=== PATIENT | male | born 1935 | race Caucasian/White ===

== ENCOUNTER 2016-09-21 14:52 | Inpatient (IN) | payer MEDICARE ==
[2016-09-21] VITALS (7 sets, daily range): BP systolic 88–159; BP diastolic 57–90; PULSE 68–103; RESP 16–20; TEMP 97.8; O2SAT 96–100
[~2016-09-21] VITALS: Ht 185.4 cm; Wt 87.4 kg
[~2016-09-21 14:52] MED LIST: CITA20TA4 PO; LORTA5 PO; MIDO5 PO; TAMS0.4C67 PO; URIB118C
[2016-09-21] MEDS ORDERED: CITA20TA4 PO (16:38)
[2016-09-21] MEDS ORDERED: NORC5TAB PO (16:38)
[2016-09-21] MEDS ORDERED: PRESCAP5 PO (16:38)
[2016-09-21] MEDS ORDERED: [UNRECOGNIZED DRUG - CODE] (16:38)
[2016-09-21] MEDS ORDERED: FLUT50SP EACH NARE (16:38)
[2016-09-21] MEDS ORDERED: TAMS0.4C4 PO (16:38)
[2016-09-21] MEDS ORDERED: OXYC1TAB63 PO (16:38)
[2016-09-21] MEDS ORDERED: CETI10 PO (16:38)
[2016-09-21] MEDS ORDERED: MIDO10TA PO (16:38)
[2016-09-21] MEDS ORDERED: SODIUM CHLORIDE 0.9% FLUSH 5 ML FLUSH IVF PRN ×2 (17:00→23:30)
[2016-09-21 17:18] LABS: BASOPHIL % 0.5 % (0.0-2.0); EOSINOPHIL # 0.3 TH/MM3 (0-0.4); EOSINOPHIL % 4.4 % (0.0-4.0); HEMATOCRIT 42.7 % (39.0-51.0); HEMO FLAGS DIFF FINAL; LYMPH % 23.8 % (9.0-44.0); LYMPHOCYTE # 1.5 TH/MM3 (1.0-4.8); MEAN CELL VOLUME 94.3 FL (80.0-100.0); MEAN CORPUSCULAR HEMOGLOBIN 31.7 PG (27.0-34.0); MEAN CORPUSCULAR HGB CONC 33.6 % (32.0-36.0); MONO % 10.1 % (0.0-8.0); NEUT % 61.2 % (16.0-70.0); PLATELET COUNT 156 TH/MM3 (150-450); RED BLOOD COUNT 4.53 MIL/MM3 (4.50-5.90); RED CELL DISTRIBUTION WIDTH 13.4 % (11.6-17.2); WHITE BLOOD COUNT 6.5 TH/MM3 (4.0-11.0)
--- NOTE | 2016-09-21 17:23 | PD ---
HPI Chief Complaint: Neuro Symptoms/ Deficits Time Seen by Provider: 17:07 Travel History International Travel<30 days: No Contact w/Intl Traveler<30days: No Traveled to known affect area: No History of Present Illness HPI Patient is a 81-year-old male with history of postural orthostatic hypotension who presents the emergency department with complaint of recurrent episodes of lightheadedness, syncope, and slight confusion. Daughter states that patient was started on droxidopa for orthostatic hypotension 6 weeks ago and had been doing very well. He still has episodes of hypotension but is not symptomatic with it. Patient ran out of the medication for 48 hours approximately 5 days ago, during which time he had a presyncopal episode upon standing and fell. Unsure whether he hit his head. Since, he has had the drug reinstated but is still having episodes of brief syncope upon standing or sitting, lying down position. This is not atypical for patient. The daughter however is concerned because he seems occasionally confused. She found him standing in his walk-in closet stating that his pants were wet and he needs to have them changed. They will however were not. Given this, primary care provider recommended patient evaluated in the ER. PFSH Past Medical History Cancer: Yes (bladder cancer) Cardiovascular Problems: No Diminished Hearing: No Genitourinary: Yes (bladder ca) Kidney Stones: Yes Musculoskeletal: No Neurologic: No Respiratory: No Tetanus Vaccination: Unknown Influenza Vaccination: Yes ?: Not Past Surgical History Other Surgery: Yes (bladder surgery) Social History Alcohol Use: No Tobacco Use: No Substance Use: No Allergies-Medications (Allergen,Severity, Reaction): Coded Allergies: No Known Allergies (Unverified , 09/21/16) Reported Meds & Prescriptions Reported Meds & Active Scripts Active Reported Northera (Droxidopa) 100 Mg Cap Fluticasone Nasal [place] 50 Mcg/Act Naspr 50 Mcg EACH NARE BID 50 mcg/spray Cetirizine (Cetirizine HCl) 10 Mg Tab 10 Mg PO DAILY Tamsulosin (Tamsulosin HCl) 0.4 Mg Cap 0.4 Mg PO HS Midodrine 10 Mg Tab 10 Mg PO TID Citalopram (Citalopram Hydrobromide) 20 Mg Tab 20 Mg PO DAILY Oxycodone-Acetaminophen 5-325 mg Tab 1 Tab PO Q6H PRN [place] (Hydrocodone-Acetaminophen) 5-325 mg Tab 1 Tab PO Q6H PRN Preservision Areds 2 (Multiple Vitamins W/ Minerals) 1 Cap 1 Cap PO DAILY Review of Systems Except as stated in HPI: all other systems reviewed are Neg Physical Exam Narrative GENERAL: Well-appearing male in no acute distress SKIN: Warm and dry. HEAD: Atraumatic. Normocephalic. EYES: Pupils equal and round. No scleral icterus. No injection or drainage. ENT: No nasal bleeding or discharge. Mucous membranes pink and moist. NECK: Supple CARDIOVASCULAR: Regular rate and rhythm. No murmur appreciated. Initially hypotensive but normalized upon recheck RESPIRATORY: No accessory muscle use. Clear to auscultation. Breath sounds equal bilaterally. GASTROINTESTINAL: Abdomen soft, non-tender, nondistended. MUSCULOSKELETAL: No obvious deformities.No edema. NEUROLOGICAL: Awake and alert. No obvious cranial nerve deficits. Motor grossly within normal limits. Normal speech. PSYCHIATRIC: Appropriate mood and affect; insight and judgment normal. Data Data Last Documented VS Vital Signs Date Time Temp Pulse Resp B/P Pulse Ox O2 Delivery O2 Flow Rate FiO2 09/21/16 17:02 96 Room Air 09/21/16 16:31 80 16 09/21/16 16:30 155/90 09/21/16 14:54 97.8 Orders Electrocardiogram (09/21/16 16:51) Basic Metabolic Panel (Bmp) (09/21/16 16:51) Complete Blood Count With Diff (09/21/16 16:51) Urinalysis - C+S If Indicated (09/21/16 16:51) Ct Brain W/O Iv Contrast(Rout) (09/21/16 16:51) Ecg Monitoring (09/21/16 16:51) Iv Access Insert/Monitor (09/21/16 16:51) Oximetry (09/21/16 16:51) Sodium Chloride 0.9% Flush (Ns Flush) (09/21/16 17:00) Labs Laboratory Tests Test 09/21/16 16:55 White Blood Count 6.5 TH/MM3 Red Blood Count 4.53 MIL/MM3 Hemoglobin 14.4 GM/DL Hematocrit 42.7 % Mean Corpuscular Volume 94.3 FL Mean Corpuscular Hemoglobin 31.7 PG Mean Corpuscular Hemoglobin 33.6 % Concent Red Cell Distribution Width 13.4 % Platelet Count 156 TH/MM3 Mean Platelet Volume 7.7 FL Neutrophils (%) (Auto) 61.2 % Lymphocytes (%) (Auto) 23.8 % Monocytes (%) (Auto) 10.1 % Eosinophils (%) (Auto) 4.4 % Basophils (%) (Auto) 0.5 % Neutrophils # (Auto) 4.0 TH/MM3 Lymphocytes # (Auto) 1.5 TH/MM3 Monocytes # (Auto) 0.7 TH/MM3 Eosinophils # (Auto) 0.3 TH/MM3 Basophils # (Auto) 0.0 TH/MM3 CBC Comment DIFF FINAL Differential Comment MDM Medical Decision Making Medical Screen Exam Complete: Yes Emergency Medical Condition: Yes Medical Record Reviewed: Yes Differential Diagnosis 81-year-old male with history of orthostatic hypotension and recurrent syncope here with complaint of increasing syncopal episodes since being off of his medication for 48 hour interval and confusion after a fall. Differential includes orthostatic hypotension, syncope, arrhythmia, anemia, closed head injury, skull fracture, ICH, UTI. Narrative Course Patient placed on monitor, IV established and blood obtained. Twelve-lead EKG, CBC, BMP, urinalysis and CT of the brain were ordered and are pending at the time this dictation. Patient signed out to oncoming provider waiting results of same for hopeful disposition to home if negative. Mary Jane Olsen MD Sep 21, 2016 17:23
[2016-09-21 17:37] LABS: BACTERIA, URINE FEW /hpf; BLOOD, URINE TRACE (NEG); COMMENT (UR) CATH-CULTURE IND; CULTURE IF INDICATED CATH CULTURE IND; GLUCOSE,URINE NEG (NEG); HYALINE CAST, URINE 15 /lpf (RARE); KETONE, URINE NEG (NEG); MUCUS URINE FEW /lpf (OCC); NITRITE,URINE NEG (NEG); PH, URINE 5.5 (5.0-8.5); SQUAMOUS EPITHELIAL CELL URINE <1 /hpf (0-5); URINE COLOR YELLOW (YELLW/STRAW)
--- NOTE | 2016-09-21 17:51 | RADRPT ---
EXAM DATE/TIME: 09/21/2016 17:36 [facility] COMPARISON: CT BRAIN W/O CONTRAST, April 10, 2016, 14:34. INDICATIONS : Altered mental status today, dizziness. RADIATION DOSE: 45.47 CTDIvol (mGy) MEDICAL HISTORY : Carcinoma, bladder. SURGICAL HISTORY : None. ENCOUNTER: Initial ACUITY: 1 day PAIN SCALE: 0/10 LOCATION: Bilateral head TECHNIQUE: Multiple contiguous axial images were obtained of the head. Using automated exposure control and adj ustment of the mA and/or kV according to patient size, radiation dose was kept as low as reasonably a chievable to obtain optimal diagnostic quality images. FINDINGS: There is linear hypodensity in the left thalamus which may reflect a small area of lacunar type infar ct age uncertain. No cortical infarct is seen. No extra-axial fluid collections are identified. Ventr icles are normal in size. Posterior fossa structures are unremarkable. CONCLUSION: 1. Possible lacunar infarct left thalamus age uncertain. MRI is recommended for further evaluation if clinically indicated. Truman Lopes MD on September 21, 2016 at 17:47 Board Certified Radiologist. This report was verified electronically.
[2016-09-21 17:53] LABS: BICARBONATE 32.2 MEQ/L (21.0-32.0); POTASSIUM 4.8 MEQ/L (3.5-5.1)
[2016-09-21] MEDS ORDERED: SODIUM CHLOR 0.9% 1000 ML INJ 1,000 ML IV ONE (18:15)
[2016-09-21] MEDS ORDERED: cefTRIAXone INJ 1,000 MG in SODIUM CHLORIDE 0.9% INJ 100 ML IV ONE (18:15)
--- NOTE | 2016-09-21 18:16 | PD ---
Physical Exam Narrative The patient was initially evaluated by the previous provider and signed out to me at 5:00 PM pending labs, CT head, and disposition. See her note for further details. Data Data Last Documented VS Vital Signs Date Time Temp Pulse Resp B/P Pulse Ox O2 Delivery O2 Flow Rate FiO2 09/21/16 17:02 96 Room Air 09/21/16 16:31 80 16 09/21/16 16:30 155/90 09/21/16 14:54 97.8 Orders Electrocardiogram (09/21/16 16:51) Basic Metabolic Panel (Bmp) (09/21/16 16:51) Complete Blood Count With Diff (09/21/16 16:51) Urinalysis - C+S If Indicated (09/21/16 16:51) Ct Brain W/O Iv Contrast(Rout) (09/21/16 16:51) Ecg Monitoring (09/21/16 16:51) Iv Access Insert/Monitor (09/21/16 16:51) Oximetry (09/21/16 16:51) Sodium Chloride 0.9% Flush (Ns Flush) (09/21/16 17:00) Urine Culture (09/21/16 16:55) Ceftriaxone Inj (Rocephin Inj) (09/21/16 18:15) Sodium Chlor 0.9% 1000 Ml Inj (Ns 1000 M (09/21/16 18:15) Admit Order (Ed Use Only) (09/21/16 18:20) Labs Laboratory Tests Test 09/21/16 16:55 White Blood Count 6.5 TH/MM3 Red Blood Count 4.53 MIL/MM3 Hemoglobin 14.4 GM/DL Hematocrit 42.7 % Mean Corpuscular Volume 94.3 FL Mean Corpuscular Hemoglobin 31.7 PG Mean Corpuscular Hemoglobin 33.6 % Concent Red Cell Distribution Width 13.4 % Platelet Count 156 TH/MM3 Mean Platelet Volume 7.7 FL Neutrophils (%) (Auto) 61.2 % Lymphocytes (%) (Auto) 23.8 % Monocytes (%) (Auto) 10.1 % Eosinophils (%) (Auto) 4.4 % Basophils (%) (Auto) 0.5 % Neutrophils # (Auto) 4.0 TH/MM3 Lymphocytes # (Auto) 1.5 TH/MM3 Monocytes # (Auto) 0.7 TH/MM3 Eosinophils # (Auto) 0.3 TH/MM3 Basophils # (Auto) 0.0 TH/MM3 CBC Comment DIFF FINAL Differential Comment Urine Color YELLOW Urine Turbidity HAZY Urine pH 5.5 Urine Specific [place] 1.024 Urine Protein 100 mg/dL Urine Glucose (UA) NEG mg/dL Urine Ketones NEG mg/dL Urine Occult Blood TRACE Urine Nitrite NEG Urine Bilirubin NEG Urine Urobilinogen 2.0 MG/DL Urine Leukocyte Esterase LARGE Urine RBC 20 /hpf Urine WBC /hpf Urine WBC Clumps FEW Urine Squamous Epithelial <1 /hpf Cells Urine Bacteria FEW /hpf Urine Hyaline Casts 15 /lpf Urine Mucus FEW /lpf Microscopic Urinalysis Comment CATH-CULTURE IND Sodium Level 139 MEQ/L Potassium Level 4.8 MEQ/L Chloride Level 101 MEQ/L Carbon Dioxide Level 32.2 MEQ/L Anion Gap 6 MEQ/L Blood Urea Nitrogen 29 MG/DL Creatinine 1.48 MG/DL Estimat Glomerular Filtration 46 ML/MIN Rate Random Glucose 104 MG/DL Calcium Level 8.9 MG/DL Total Creatine Kinase 87 U/L Troponin I LESS THAN 0.02 NG/ML MDM Supervised Visit with EMERALD: No Narrative Course Briefly this is an 81-year-old male with history of POTS, bladder cancer, prostate cancer, lives alone, here with his daughter who is concerned about him because he has not been acting like himself and has been falling. On exam the patient is awake and alert. There are no focal neurologic findings. Initial vital signs showed a blood pressure of 88/57 which improved to 155/90 without any intervention. Heart rate of 90, pulse ox 96% on room air, temp of 97.8F. CBC is unremarkable. BMP is remarkable for BUN 29, creatinine 1.48, GFR 46, otherwise unremarkable. UA is suggestive of UTI. The patient was started on Rocephin. CT head: Possible lacunar infarct left thalmus age uncertain. Brain MRI is recommended for further evaluation if clinically indicated. Patient and the patient's daughter were made aware of all findings. Given change in mental status, frequent falls, UTI, and acute kidney injury, the patient will be admitted for further treatment and evaluation. Case discussed with hospitalist Dr. Nj who will admit the patient to his service. Diagnosis Primary Impression: UTI (urinary tract infection) Qualified Code: N39.0 - Urinary tract infection with hematuria, site unspecified Additional Impressions: Frequent falls Acute kidney injury Admitting Information Admitting Physician Requests: Admit Sai Lunsford MD Sep 21, 2016 18:16
[2016-09-21] MEDS ORDERED: BISACODYL 10 MG SUPP PR PRN (18:45)
[2016-09-21] MEDS ORDERED: ONDANSETRON HCL 4 MG/2 ML VIAL IVP PRN (18:45)
[2016-09-21] MEDS ORDERED: ACETAMINOPHEN 325 MG TAB PO PRN (18:45)
[2016-09-21] MEDS ORDERED: SODIUM CHLORIDE 0.9% FLUSH 5 ML FLUSH FLUSH PRN (18:45)
[2016-09-21] MEDS ORDERED: METOCLOPRAMIDE HCL 10 MG/2 ML VIAL IV PUSH PRN (18:45)
[2016-09-21] MEDS ORDERED: oxyCODONE/ACETAMINOPHEN 5 MG/325 MG TAB PO PRN (18:45)
[2016-09-21] MEDS ORDERED: NALOXONE HCL 0.4 MG/ML AMP IV PRN (18:45)
[2016-09-21 19:29] LABS: CREATINE KINASE 87 U/L (39-308)
[2016-09-21] MEDS: DOCUSATE SODIUM 100 MG CAP PO SCH (19:51)
[2016-09-21] MEDS: HEPARIN SODIUM - SQ 10,000 UNITS/ML VIAL SQ SCH (19:51)
[2016-09-21] MEDS: SODIUM CHLOR 0.9% 1000 ML INJ 1,000 ML IV SCH (19:52)
--- NOTE | 2016-09-21 20:01 | RADRPT ---
EXAM DATE/TIME: 09/21/2016 19:19 [facility] COMPARISON: No previous studies available for comparison. INDICATIONS : Stroke. MEDICAL HISTORY : Carcinoma, prostate. Carcinoma, bladder. Hypotension. SURGICAL HISTORY : Left ankle surgery about 40 years ago. ENCOUNTER: Initial ACUITY: 2 day PAIN SCORE: 1/10 LOCATION: Bilateral cranial Please note a normal MRA of the brain does not entirely exclude the possibility of a small aneurysm, nor the possibility of distal intracranial vessel disease. TECHNIQUE: 3D time of flight MRA was performed. Source images, multiplanar STS MIP, and 3D volume MIP reconstru ctions were reviewed. FINDINGS: There is excellent visualization of the major intracranial arteries out to the second-order branch ve ssels. There is no evidence for aneurysm, vessel truncation or stenosis, and no evidence for vascula r malformation. CONCLUSION: Intracranial arteries are within normal limits. Yordy Tobar MD on September 21, 2016 at 19:59 Board Certified Radiologist. This report was verified electronically.
[2016-09-21] MEDS: FLUTICASONE PROPIONATE 50 MCG/ACT 16 GM NASAL SPRAY EACH NARE SCH (21:00)
[2016-09-21] MEDS: TAMSULOSIN HCL 0.4 MG CAP PO SCH (21:00)
[2016-09-21] MEDS ORDERED: SODIUM CHLORIDE 0.9% FLUSH 5 ML FLUSH FLUSH SCH (21:00)
--- NOTE | 2016-09-21 23:05 | RADRPT ---
EXAM DATE/TIME: 09/21/2016 22:29 [facility] COMPARISON: CT BRAIN W/O CONTRAST, September 21, 2016, 17:36. INDICATIONS : CVA. MEDICAL HISTORY : Carcinoma, prostate. Carcinoma, bladder. Hypotension. SURGICAL HISTORY : Left ankle surgery about 40 years ago. ENCOUNTER: Initial ACUITY: 2 day PAIN SCORE: 2/10 LOCATION: Bilateral cranial TECHNIQUE: Multiplanar, multisequence MRI of the brain was performed without contrast. FINDINGS: CEREBRUM: The ventricles are normal for age. No evidence of midline shift, mass lesion, or hemorrhage MR confi jessica the presence of a lacunar type infarct in the left thalamus.. No extraaxial fluid collections ar e seen. The pituitary gland and suprasellar cistern are normal in configuration. WHITE MATTER: Minimal periventricular and deep white matter tract areas of small vessel ischemic demyelination. POSTERIOR FOSSA: The cerebellum and brainstem are intact. The 4th ventricle is midline. The cerebellopontine angle is unremarkable. The cerebellar tonsils are normal in position. DIFFUSION IMAGING: Area of infarct in the left thalamus shows diminished T1 signal intensity but there is definite incre ased signal on the axial diffusion weighted images. There also appears to be faint diminished signal on the ADC map and therefore, lesion is characteristic of a subacute lacunar type infarct. EXTRACRANIAL: The visualized portions of the orbits and paranasal sinuses are unremarkable. CONCLUSION: 1. Subacute infarct in the left thalamic nuclei. 2. Minimal periventricular and deep white matter tracks small vessel ischemic demyelination. Antoine Stack MD on September 21, 2016 at 22:59 Board Certified Radiologist. This report was verified electronically.
--- NOTE | 2016-09-21 23:19 | HHI.HP ---
HPI Service [facility] Primary Care Physician Nesha Coronado MD Admission Diagnosis UTI, AMS, frequent falls, VICK Diagnoses: Chief Complaint: Dizziness, almost falling Travel History International Travel<30 Days: No Contact w/Intl Traveler <30 Da: No Traveled to Known Affected Are: No History of Present Illness History from patient, patient's daughter at the bedside, and review of medical records Patient reported that he came to the hospital because started once, he just been feeling extremely dizzy. He denies passing out episodes. He states he was awake and alert THIS time. He denies any focal weakness. He denies any recent fever/nausea/vomiting/diarrhea. Reports of burning urination. However states that he has been having that for a long time. Daughter at the bedside reported to me that patient has been suffering from postural hypotension for the past 1 year or so. She stated that he had been on midodrine for this and was also started on trial medication by communications programmer. She stated this medication ran out a few days ago and she was wondering whether his symptoms are getting worse because of not taking this medicine. However she states that this is also different from what his normal postural hypotension episodes are. She described that he was quite dizzy and almost passing out even while he was sleeping in bed lying down. She states this is not his normal. She was wondering whether he is having memory impairment and early dementia symptoms as well. As to his burning urination, she reports that he has been having this because of bladder cancer. She states that he was receiving BCG vaccine injections for the treatment and was told by Dr. Mi that these symptoms are normal part of treatment. Daughter herself also denies any other symptoms apart from this burning urination and dizziness with almost passing out episodes. Review of Systems Except as stated in HPI: all other systems reviewed are Neg Past Family Social History Past Medical History Postural hypotension Bladder cancer Prostate cancer Mild depression Past Surgical History Left ankle surgery Appendectomy Reported Medications Patient's medications listed in EMR just reviewed. Patient's daughter also brought bottles of his medications with her. This was reviewed. Allergies: Coded Allergies: No Known Allergies (Unverified , 09/21/16) Family History Per EMR: His sisters had lung cancer. Mother and brother have Alzheimer's. His father had pancreatic cancer. Social History Denies smoking/alcohol abuse/drug abuse. States that he currently lives with his son. His daughter visits him often and takes care of him. Physical Exam Vital Signs Vital Signs Date Time Temp Pulse Resp B/P Pulse Ox O2 Delivery O2 Flow Rate FiO2 09/21/16 19:58 75 16 152/72 97 Room Air 09/21/16 18:28 68 17 159/76 96 Room Air 09/21/16 17:02 96 Room Air 09/21/16 16:31 80 16 96 Room Air 09/21/16 16:30 103 16 155/90 96 Room Air 09/21/16 14:54 97.8 90 20 88/57 96 Room Air Physical Exam GENERAL: This is a well-nourished, well-developed patient, in no apparent distress. SKIN: No rashes, ecchymoses or lesions. Cool and dry. HEAD: Atraumatic. Normocephalic. No temporal or scalp tenderness. EYES: No scleral icterus. No injection or drainage. ENT: Nose without bleeding, purulent drainage or septal hematoma.4 Airway patent. NECK: Trachea midline. No JVD. CARDIOVASCULAR: Regular rate and rhythm without murmurs, gallops, or rubs. RESPIRATORY: Clear to auscultation. Breath sounds equal bilaterally. No wheezes , rales, or rhonchi. GASTROINTESTINAL: Abdomen soft, non-tender, nondistended. No guarding. Musculoskeletal: No calf asymmetry or edema. NEUROLOGICAL: Awake and alert. Cranial nerves II through XII intact. Motor and sensory grossly within normal limits. Normal speech. Laboratory Laboratory Tests Test 09/21/16 16:55 White Blood Count 6.5 Red Blood Count 4.53 Hemoglobin 14.4 Hematocrit 42.7 Mean Corpuscular Volume 94.3 Mean Corpuscular Hemoglobin 31.7 Mean Corpuscular Hemoglobin 33.6 Concent Red Cell Distribution Width 13.4 Platelet Count 156 Mean Platelet Volume 7.7 Neutrophils (%) (Auto) 61.2 Lymphocytes (%) (Auto) 23.8 Monocytes (%) (Auto) 10.1 Eosinophils (%) (Auto) 4.4 Basophils (%) (Auto) 0.5 Neutrophils # (Auto) 4.0 Lymphocytes # (Auto) 1.5 Monocytes # (Auto) 0.7 Eosinophils # (Auto) 0.3 Basophils # (Auto) 0.0 CBC Comment DIFF FINAL Differential Comment Urine Color YELLOW Urine Turbidity HAZY Urine pH 5.5 Urine Specific [place] 1.024 Urine Protein 100 Urine Glucose (UA) NEG Urine Ketones NEG Urine Occult Blood TRACE Urine Nitrite NEG Urine Bilirubin NEG Urine Urobilinogen 2.0 Urine Leukocyte Esterase LARGE Urine RBC 20 Urine WBC Urine WBC Clumps FEW Urine Squamous Epithelial <1 Cells Urine Bacteria FEW Urine Hyaline Casts 15 Urine Mucus FEW Microscopic Urinalysis Comment CATH-CULTURE IND Sodium Level 139 Potassium Level 4.8 Chloride Level 101 Carbon Dioxide Level 32.2 Anion Gap 6 Blood Urea Nitrogen 29 Creatinine 1.48 Estimat Glomerular Filtration 46 Rate Random Glucose 104 Calcium Level 8.9 Total Creatine Kinase 87 Troponin I LESS THAN 0.02 Date/Time Procedure Status Source Growth 09/21/16 19:05 Aerobic Blood Culture Received Blood Peripheral Pending 09/21/16 19:05 Anaerobic Blood Culture Received Blood Peripheral Pending 09/21/16 16:55 Urine Culture Received Urine Clean Catch Pending Result Diagram: 09/21/16 1655 09/21/16 1655 Imaging Last [address] 09/21/16 1651 Signed Impressions: Service Date/Time: Wednesday, September 21, 2016 17:36 - CONCLUSION: 1. Possible lacunar infarct left thalamus age uncertain. MRI is recommended for further evaluation if clinically indicated. Truman Lopes MD Head Magnetic Resonance Angiography 09/21/16 0000 Signed Impressions: Service Date/Time: Wednesday, September 21, 2016 19:19 - CONCLUSION: Intracranial arteries are within normal limits. Yordy Tobar MD Brain MRI 09/21/16 0000 Signed Impressions: Service Date/Time: Wednesday, September 21, 2016 22:29 - CONCLUSION: 1. Subacute infarct in the left thalamic nuclei. 2. Minimal periventricular and deep white matter tracks small vessel ischemic demyelination. Antoine Stack MD Assessment and Plan Problem List: (1) CVA (cerebral vascular accident) ICD Code: I63.9 Status: Acute (2) Frequent falls ICD Code: R29.6 Status: Acute (3) Acute kidney injury ICD Code: N17.9 Status: Acute (4) Orthostatic hypotension ICD Code: I95.1 Status: Acute Assessment and Plan Impression: Dizziness/near syncopal episodeswhich is somewhat different from his baseline symptoms. Would need to rule out subacute versus acute CVA. Urinary burningin setting of BCG injections for bladder/prostate cancer. Rule out UTI. Frequent urinationpost BCG injections for bladder/prostate cancer. Rule out urinary retention/inadequate emptying Postural hypotension Bladder cancer Prostate cancer Mild depression Plan: Patient's head CTreviewed personally. Suspicious thalamic CVA was noted. Therefore MRI was advised. Patient's MRA of the brainresults noted. No significant vascular compromise. Would obtain stat MRI to rule out CVA. Permissive hypertension. Neurochecks every 4 hours. Head of bed flat. Neurologic consulted. Rehabilitation consult. Permissive hypertension. We'll check UA and urine culture if indicated. DVT prophylaxiswith Lovenox. GI prophylaxison pantoprazole Discussed Condition With Patient, patient's daughter at the bedside, nursing staff Physician Certification 2 Midnight Certification Type: Admission for Inpatient Services Order for Inpatient Services The services are ordered in accordance with Medicare regulations or non- Medicare payer requirements, as applicable. In the case of services not specified as inpatient-only, they are appropriately provided as inpatient services in accordance with the 2-midnight benchmark. Estimated LOS (days): 3 days is the estimated time the patient will need to remain in the hospital, assuming treatment plan goals are met and no additional complications. Post-Hospital Plan: Home Health Rere Reeves MD Sep 21, 2016 23:19
[2016-09-21] MEDS ORDERED: GLUCAGON 1 MG/ML VIAL IM/SQ PRN (23:30)
[2016-09-21] MEDS ORDERED: DEXTROSE 50% IN WATER 50 ML VIAL(D50) IV PUSH PRN (23:30)
[2016-09-22] VITALS (8 sets, daily range): BP systolic 75–159; BP diastolic 49–86; PULSE 71–107; RESP 16–19; TEMP 95.9–96.4; O2SAT 95–98
[2016-09-22 01:01] LABS: CREATINE KINASE 60 U/L (39-308)
[2016-09-22 04:37] LABS: AUTOMATED NEUTROPHIL # 2.9 TH/MM3 (1.8-7.7); BASOPHIL % 0.7 % (0.0-2.0); EOSINOPHIL # 0.3 TH/MM3 (0-0.4); EOSINOPHIL % 4.8 % (0.0-4.0); HEMATOCRIT 39.6 % (39.0-51.0); HEMO FLAGS DIFF FINAL; LYMPH % 30.6 % (9.0-44.0); LYMPHOCYTE # 1.7 TH/MM3 (1.0-4.8); MEAN CELL VOLUME 93.4 FL (80.0-100.0); MEAN CORPUSCULAR HEMOGLOBIN 31.6 PG (27.0-34.0); MEAN CORPUSCULAR HGB CONC 33.9 % (32.0-36.0); MONO % 11.7 % (0.0-8.0); NEUT % 52.2 % (16.0-70.0); PLATELET COUNT 138 TH/MM3 (150-450); RED BLOOD COUNT 4.24 MIL/MM3 (4.50-5.90); RED CELL DISTRIBUTION WIDTH 13.3 % (11.6-17.2); WHITE BLOOD COUNT 5.5 TH/MM3 (4.0-11.0)
[2016-09-22] MEDS: SODIUM CHLOR 0.9% 1000 ML INJ 1,000 ML IV SCH ×2 (04:37→15:06)
[2016-09-22 04:56] LABS: PROTHROMBIN TIME - PATIENT 10.6 SEC (9.8-11.6)
[2016-09-22 05:09] LABS: BICARBONATE 30.2 MEQ/L (21.0-32.0); HDL CHOLESTEROL 54.5 MG/DL (40.0-60.0); INDIRECT BILIRUBIN 0.3 MG/DL (0.0-0.8); POTASSIUM 4.3 MEQ/L (3.5-5.1); TOTAL BILIRUBIN ADULT 0.4 MG/DL (0.2-1.0)
[2016-09-22] MEDS: DOCUSATE SODIUM 100 MG CAP PO SCH ×2 (06:44→17:40)
[2016-09-22] MEDS: HEPARIN SODIUM - SQ 10,000 UNITS/ML VIAL SQ SCH ×2 (06:45→17:41)
[2016-09-22] MEDS: FLUTICASONE PROPIONATE 50 MCG/ACT 16 GM NASAL SPRAY EACH NARE SCH ×2 (09:00→22:00)
[2016-09-22] MEDS: CITALOPRAM HYDROBROMIDE 20 MG TAB PO SCH (10:39)
[2016-09-22] MEDS: MIDODRINE 5 MG TAB PO SCH ×4 (10:40→17:40)
--- NOTE | 2016-09-22 13:09 | EKG ---
Date Performed: 09/21/2016 Time Performed: 17:17:57 PTAGE: 81 years EKG: Sinus rhythm WITH OCCASIONAL SUPRAVENTRICULAR PREMATURE COMPLEXES IN A BIGEMINAL PATTERN NONSPECIFIC T-WAVE ABNOR MALITY ABNORMAL RHYTHM ECG PREVIOUS TRACING : 04/10/2016 14.57 Compared to previous tracing, PACs are now present. DOCTOR: Humberto Rodas Interpretating Date/Time 09/22/2016 13:07:29
[2016-09-22 13:28] LABS: HEMOGLOBIN A1a 0.9 %; HEMOGLOBIN A1b 1.7 %; HEMOGLOBIN LA1C 1.8 %; HEMOGLOBIN P3 3.7 %
[2016-09-22] MEDS: SODIUM CHLORIDE 0.9% FLUSH 5 ML FLUSH IVF SCH ×2 (15:06→21:55)
--- NOTE | 2016-09-22 15:41 | HHI.PR ---
Subjective Remarks Patient since on the commode, reportedly still feeling dizzy but no nausea or vomiting or chest pain or short of breath MRI did show subacute thalamic nuclei infarct, awaiting neurology consult Objective Vitals Vital Signs Date Time Temp Pulse Resp B/P Pulse Ox O2 Delivery O2 Flow Rate FiO2 09/22/16 13:15 95.9 78 19 159/76 96 09/22/16 12:44 71 18 139/86 98 Room Air 09/22/16 09:16 132/78 104/55 75/49 09/22/16 06:07 75 16 99/55 96 Room Air 09/21/16 23:41 98 09/21/16 23:35 85 16 145/78 100 Room Air 09/21/16 19:58 75 16 152/72 97 Room Air 09/21/16 18:28 68 17 159/76 96 Room Air 09/21/16 17:02 96 Room Air 09/21/16 16:31 80 16 96 Room Air 09/21/16 16:30 103 16 155/90 96 Room Air I/O 09/21/16 09/21/16 09/21/16 09/22/16 09/22/16 09/22/16 07:00 15:00 23:00 07:00 15:00 23:00 Intake Total 65 ml Output Total 200 ml Balance -200 ml 65 ml Intake IV Total 65 ml Output Urine Total 200 ml # Voids 2 1 Result Diagram: 09/22/16 03509/22/16 035 Objective Remarks GENERAL: This is a well-nourished, well-developed patient, in no apparent distress. SKIN: No rashes, warm and dry HEAD: Atraumatic. Normocephalic. EYES: Pupils equal round and reactive. Extraocular motions intact. No scleral icterus. ENT: Nose without bleeding, or drainage, Airway patent. NECK: Trachea midline. Supple CARDIOVASCULAR: Regular rate and rhythm without murmurs, gallops, or rubs. RESPIRATORY: Fair air entry bilaterally. No wheezes, rales, or rhonchi. GASTROINTESTINAL: Abdomen soft, non-tender, nondistended. Positive bowel sounds MUSCULOSKELETAL: Extremities without clubbing, cyanosis, or edema. Pedal pulses appreciated NEUROLOGICAL: Cranial nerves II-12 intact, Awake and alert. Moves all extremity. Normal speech.no focal neurological deficit A/P Problem List: (1) CVA (cerebral vascular accident) ICD Code: I63.9 Status: Acute (2) Frequent falls ICD Code: R29.6 Status: Acute (3) Acute kidney injury ICD Code: N17.9 Status: Acute (4) Orthostatic hypotension ICD Code: I95.1 Status: Acute Assessment and Plan Dizziness/near syncopal episodeswhich is somewhat different from his baseline symptoms. Would need to rule out subacute versus acute CVA. Urinary burningin setting of BCG injections for bladder/prostate cancer. Rule out UTI. Frequent urinationpost BCG injections for bladder/prostate cancer. Rule out urinary retention/inadequate emptying History of chronic Postural hypotension Bladder cancer Prostate cancer Mild depression Plan: Patient's head MRIreviewed personally. Subacute thalamic nuclei CVA was noted. MRI was advised. Patient's MRA of the brainresults noted. No significant vascular compromise. MRI positive for ophthalmic nuclei subacute ischemia Permissive hypertension. Neurochecks every 4 hours. Head of bed flat. Awaiting neurology consult. Rehabilitation consult. Permissive hypertension. UA and urine culture if indicated. DVT prophylaxiswith Lovenox. GI prophylaxison pantoprazole Betty Meza MD Sep 22, 2016 15:41 Betty Meza MD Sep 22, 2016 15:41
[2016-09-22] MEDS: ASPIRIN EC 81 MG TABEC PO SCH (17:40)
--- NOTE | 2016-09-22 17:59 | MB ---
cc: TEQUILA GUZMAN MD DATE OF CONSULTATION 09/22/16 REASON FOR CONSULTATION Possible TIA versus stroke. HISTORY OF PRESENT ILLNESS Mr. Messina is an 87-year-old male with past medical history of postural orthostatic hypotension who presented to the [facility] with complaint of recurrent episode of lightheadedness, syncope and confusion. The daughter accompanies the patient and states that he was recently started on droxidopa/Northera for orthostatic hypotension for six weeks and he was doing well. This is a research trial medication, but he still has episodes of hypotension and the patient has run out medication for the last past 48 hours and still has those presyncopal episodes and episodes of confusion and also shaking of both hands. Denies any convulsions. There was mild slurring of speech initially with no focal weakness or loss of consciousness. I have seen the patient at my office a few months ago, MRI brain was reported with white matter disease, no acute intracranial abnormality. EEG with no epileptiform discharges or electrographic seizures. A cognitive assessment revealed an element of dementia. A possible diagnosis that was entertained was multiple system atrophy, and the plan was to refer to [facility] for further work up, daughter and patient were agreeable on the plan. PAST MEDICAL HISTORY 1. History of bladder cancer. Bladder cancer follows up and he received BCG vaccine for the bladder cancer as per his urologist 2. Kidney stones PAST SURGICAL HISTORY, PAST SURGERIES. SOCIAL HISTORY. Denies alcohol, tobacco and substance abuse. FAMILY HISTORY Noncontributory REVIEW OF SYSTEMS A 12-point review of systems is negative except what is stated in the HPI. ALLERGIES No known allergies. PHYSICAL EXAMINATION GENERAL: Pleasant, awake, alert, good historian. HEENT: Atraumatic, normocephalic. Intact hearing and vision. NECK: Supple. No carotid bruit and no signs of meningeal irritation. CARDIOVASCULAR: Regular rate and rhythm. RESPIRATORY: Clear to auscultation. No wheezes. MUSCULOSKELETAL: No obvious deformities, no edema NEUROLOGIC: Awake, alert, oriented to time, person and place. Intact speech. No dysphagia. Intact speech content. Cranial nerves are grossly intact. Motor system bilateral upper extremity and lower extremity 5/5, no abnormal movements are intact sensation bilateral symmetrical. [id number]. Intact sensation bilateral normal. Reflexes are normal bilateral and symmetrical. Plantars are bilateral downgoing. PSYCHIATRIC: Appropriate mood and behavior. LABORATORY DATA White blood cells 6.5, hemoglobin 4.4, platelets 156. IMAGING STUDIES Head CT scan revealed possible lacunar infarct left thalamus age uncertain. Brain MRI revealed subacute infarct in the left thalamus nuclei. Minimal periventricular and deep white matter tract, small vessel ischemic changes. Head MRA intracranial arteries are within the normal limits. IMPRESSION Subacute ischemic infarction, left thalamic area. 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 Aspirin 81 mg the 2. Telemetry. 3. Maintain blood pressure 125-130/75-80 and avoid fluctuations in the blood pressure. 4. DVT prophylaxis. 5. PT OT recommendations are appreciated Thank you for the opportunity to participate in the care of your patient. MD STORM Lange/ /4:51 PM /5:43 PM KEN
[2016-09-22] MEDS: TAMSULOSIN HCL 0.4 MG CAP PO SCH (21:56)
[2016-09-23] VITALS (10 sets, daily range): BP systolic 112–168; BP diastolic 70–96; PULSE 72–100; RESP 18–20; TEMP 95.6–97.5; O2SAT 95–98
[2016-09-23] MEDS: HEPARIN SODIUM - SQ 10,000 UNITS/ML VIAL SQ SCH ×2 (05:29→17:44)
[2016-09-23] MEDS: DOCUSATE SODIUM 100 MG CAP PO SCH ×2 (05:29→17:44)
[2016-09-23] MEDS: SODIUM CHLOR 0.9% 1000 ML INJ 1,000 ML IV SCH ×2 (09:12→20:36)
[2016-09-23] MEDS: MIDODRINE 5 MG TAB PO SCH ×3 (09:12→17:40)
[2016-09-23] MEDS: CITALOPRAM HYDROBROMIDE 20 MG TAB PO SCH (09:12)
[2016-09-23] MEDS: ASPIRIN EC 81 MG TABEC PO SCH (09:13)
[2016-09-23] MEDS: SODIUM CHLORIDE 0.9% FLUSH 5 ML FLUSH IVF SCH ×3 (09:13→22:08)
[2016-09-23] MEDS: FLUTICASONE PROPIONATE 50 MCG/ACT 16 GM NASAL SPRAY EACH NARE SCH ×2 (09:13→22:11)
[2016-09-23] MEDS: NORTHERA PO SCH ×2 (12:41→17:39)
[2016-09-23] MEDS ORDERED: DROXIDOPA 600 MG PO SCH (13:00)
[2016-09-23] MEDS ORDERED: ASPI81TA11 PO (14:48)
[2016-09-23] MEDS ORDERED: WALKER WHEELS/F1 MIS (14:49)
[2016-09-23] MEDS ORDERED: ENALAPRILAT 1.25 MG/ML VIAL IV PUSH PRN (15:30)
--- NOTE | 2016-09-23 17:11 | HHI.PR ---
Subjective Remarks Patient resting in bed, no new weakness or neuro deficit Daughter at the bedside, he complained of dysuria but he recently had treatment for bladder cancer Seen by neurology, recommended aspirin and strict control blood pressure, will get PT OT to assess for rehabilitation Objective Vitals Vital Signs Date Time Temp Pulse Resp B/P Pulse Ox O2 Delivery O2 Flow Rate FiO2 09/23/16 11:20 97.5 79 19 136/71 98 09/23/16 09:34 72 09/23/16 09:25 96 21 09/23/16 07:55 96.4 76 19 149/96 98 09/23/16 04:00 95.6 92 20 141/70 95 09/23/16 00:47 96.2 80 18 120/76 96 09/22/16 21:00 107 09/22/16 20:00 96.2 81 18 122/77 95 09/22/16 18:28 95 21 I/O 09/22/16 09/22/16 09/22/16 09/23/16 09/23/16 09/23/16 07:00 15:00 23:00 07:00 15:00 23:00 Intake Total 65 ml 240 ml 240 ml 1120 ml Output Total 1050 ml 500 ml 400 ml Balance 65 ml -810 ml -260 ml 720 ml Intake Oral 240 ml 240 ml IV Total 65 ml 1120 ml Output Urine Total 1050 ml 500 ml 400 ml # Voids 1 2 # Bowel Movements 1 Result Diagram: 09/22/16 0350 09/22/16 0350 Objective Remarks GENERAL: This is a well-nourished, well-developed patient, in no apparent distress. SKIN: No rashes, warm and dry HEAD: Atraumatic. Normocephalic. EYES: Pupils equal round and reactive. Extraocular motions intact. No scleral icterus. ENT: Nose without bleeding, or drainage, Airway patent. NECK: Trachea midline. Supple CARDIOVASCULAR: Regular rate and rhythm without murmurs, gallops, or rubs. RESPIRATORY: Fair air entry bilaterally. No wheezes, rales, or rhonchi. GASTROINTESTINAL: Abdomen soft, non-tender, nondistended. Positive bowel sounds MUSCULOSKELETAL: Extremities without clubbing, cyanosis, or edema. Pedal pulses appreciated NEUROLOGICAL: Cranial nerves II-12 intact, Awake and alert. Moves all extremity. Normal speech.no focal neurological deficit A/P Problem List: (1) CVA (cerebral vascular accident) ICD Code: I63.9 Status: Acute (2) Frequent falls ICD Code: R29.6 Status: Acute (3) Acute kidney injury ICD Code: N17.9 Status: Acute (4) Orthostatic hypotension ICD Code: I95.1 Status: Acute Assessment and Plan Subacute thalamus nuclei ischemia: Presented in Dizziness/near syncopal episodes Symptomatic UTI/dysuriain setting of BCG injections for bladder/prostate cancer. Start Rocephin Frequent urinationpost BCG injections for bladder/prostate cancer. Rule out urinary retention/inadequate emptying History of chronic Postural hypotension Bladder cancer Prostate cancer Mild depression Plan: Appreciate neurology consultation, continue aspirin 81 mg, strict control blood pressure systolic less than 130 Hold Midodrin in order to keep blood pressure systolic is 1:30 Add Vasotec when necessary Patient's head MRIreviewed personally. Subacute thalamic nuclei CVA was noted. MRI was advised. Patient's MRA of the brainresults noted. No significant vascular compromise. Neurochecks every 4 hours. Head of bed flat. Rehabilitation consult UA positive Augustin stress and WBC, will start Rocephin DVT prophylaxiswith Lovenox. GI prophylaxison pantoprazole Discharge Planning In a.m. if blood pressure stable per neurology Betty Meza MD Sep 23, 2016 17:11
[2016-09-23] MEDS: cefTRIAXone INJ 1,000 MG in SODIUM CHLORIDE 0.9% INJ 100 ML IV SCH (17:46)
[2016-09-23] MEDS: TAMSULOSIN HCL 0.4 MG CAP PO SCH (22:07)
[2016-09-24] VITALS (8 sets, daily range): BP systolic 97–173; BP diastolic 49–80; PULSE 54–100; RESP 18–20; TEMP 96.1–97.6; O2SAT 92–98
[2016-09-24] MEDS: SODIUM CHLOR 0.9% 1000 ML INJ 1,000 ML IV SCH ×2 (06:36→17:24)
[2016-09-24] MEDS: FLUTICASONE PROPIONATE 50 MCG/ACT 16 GM NASAL SPRAY EACH NARE SCH ×2 (09:00→21:31)
[2016-09-24] MEDS: DOCUSATE SODIUM 100 MG CAP PO SCH ×2 (10:12→18:45)
[2016-09-24] MEDS: MIDODRINE 5 MG TAB PO SCH ×3 (10:13→17:23)
[2016-09-24] MEDS: CITALOPRAM HYDROBROMIDE 20 MG TAB PO SCH (10:13)
[2016-09-24] MEDS: ASPIRIN EC 81 MG TABEC PO SCH (10:14)
[2016-09-24] MEDS: NORTHERA PO SCH ×3 (10:16→17:24)
[2016-09-24] MEDS: SODIUM CHLORIDE 0.9% FLUSH 5 ML FLUSH IVF SCH (10:16)
--- NOTE | 2016-09-24 12:31 | HHI.FF ---
Face to Face Verification Diagnosis: (1) Syncope (2) Orthostatic hypotension (3) CVA (cerebral vascular accident) Physical Therapy Order: Evaluate and Treat Occupational Therapy Order: Evaluate and Treat Home Health Nursing Order: Medical education Nursing assessment with vital signs I have seen patient Herb Messina on 09/24/16. My clinical findings support the need for the requested home health care services because: Deconditioned w/ increased weakness I certify that my clinical findings support that this patient is homebound because: Unsteady gait/balance Unsafe to leave home unassisted Betty Meza MD Sep 24, 2016 12:31
--- NOTE | 2016-09-24 13:00 | HHI.PR ---
Subjective Remarks Patient stable laying in bed comfortably, blood pressure slightly fluctuate but better reading after dropping Midodrin, I will drop his care as well and monitor , discussed within patient and the daughter, I will continue monitoring blood pressure we'll try to keep it in the range and continue adjusting his orthostatic medication, I also recommended to go to rehabilitation considering the patient's daughter feeling overwhelmed having to take care of her mother, and to avoid any problem with his blood pressure that can result in another syncope or stroke Objective Vitals Vital Signs Date Time Temp Pulse Resp B/P Pulse Ox O2 Delivery O2 Flow Rate FiO2 09/24/16 09:18 92 21 09/24/16 08:27 96.1 98 18 115/63 94 09/24/16 04:00 96.2 71 20 134/67 92 09/24/16 00:00 97.6 74 20 97/49 97 09/23/16 20:15 100 09/23/16 20:00 97.5 79 18 168/78 96 09/23/16 18:00 98 21.00 09/23/16 15:45 96.9 82 19 112/70 96 I/O 09/23/16 09/23/16 09/23/16 09/24/16 09/24/16 09/24/16 07:00 15:00 23:00 07:00 15:00 23:00 Intake Total 240 ml 1120 ml 720 ml 120 ml Output Total 500 ml 400 ml 1250 ml 400 ml Balance -260 ml 720 ml -530 ml -280 ml Intake Oral 240 ml 720 ml 120 ml IV Total 1120 ml Output Urine Total 500 ml 400 ml 1250 ml 400 ml # Voids 1 # Bowel Movements 1 0 Result Diagram: 09/22/16 0350 09/22/16 0350 Objective Remarks GENERAL: This is a well-nourished, well-developed patient, in no apparent distress. SKIN: No rashes, warm and dry HEAD: Atraumatic. Normocephalic. EYES: Pupils equal round and reactive. Extraocular motions intact. No scleral icterus. ENT: Nose without bleeding, or drainage, Airway patent. NECK: Trachea midline. Supple CARDIOVASCULAR: Regular rate and rhythm without murmurs, gallops, or rubs. RESPIRATORY: Fair air entry bilaterally. No wheezes, rales, or rhonchi. GASTROINTESTINAL: Abdomen soft, non-tender, nondistended. Positive bowel sounds MUSCULOSKELETAL: Extremities without clubbing, cyanosis, or edema. Pedal pulses appreciated NEUROLOGICAL: Cranial nerves II-12 intact, Awake and alert. Moves all extremity. Normal speech.no focal neurological deficit A/P Problem List: (1) CVA (cerebral vascular accident) ICD Code: I63.9 Status: Acute (2) Frequent falls ICD Code: R29.6 Status: Acute (3) Acute kidney injury ICD Code: N17.9 Status: Acute (4) Orthostatic hypotension ICD Code: I95.1 Status: Acute Assessment and Plan Subacute thalamus nuclei ischemia: Presented in Dizziness/near syncopal episodes Symptomatic UTI/dysuriain setting of BCG injections for bladder/prostate cancer. Start Rocephin Frequent urinationpost BCG injections for bladder/prostate cancer. Rule out urinary retention/inadequate emptying History of chronic Postural hypotension Bladder cancer Prostate cancer Mild depression Plan: continue aspirin 81 mg, strict control blood pressure systolic less than 130 or neurology recommendation, however patient has significant orthostatic hypotension problem for which he is on Midrin and northera 600 mg tid , I will gradually drop his northera to 300 mg tid instead of 600, yesterday or a drop Midodrin 25 mg which give good results on the blood pressure. I discussed extensively with the patient and his daughter as well as the nurse and the case filler, patient may benefit from few days at the rehabilitation facility for further monitoring of his blood pressure considering his orthostatic and CVA problem so he may need to be under supervision to avoid return to hospital with either syncope or stroke Hold Midodrin in order to keep blood pressure systolic is 130 Add Vasotec when necessary Patient's head MRIreviewed personally. Subacute thalamic nuclei CVA was noted. MRI was advised. Patient's MRA of the brainresults noted. No significant vascular compromise. Neurochecks every 4 hours. Head of bed flat. Rehabilitation consult UA positive Augustin stress and WBC, will start Rocephin DVT prophylaxiswith Lovenox. GI prophylaxison pantoprazole Discharge Planning In a.m. if blood pressure stable Betty Meza MD Sep 24, 2016 13:00
[2016-09-24] MEDS: cefTRIAXone INJ 1,000 MG in SODIUM CHLORIDE 0.9% INJ 100 ML IV SCH (17:23)
[2016-09-24] MEDS: TAMSULOSIN HCL 0.4 MG CAP PO SCH (21:31)
[2016-09-24] MEDS: HEPARIN SODIUM - SQ 10,000 UNITS/ML VIAL SQ SCH (21:33)
[2016-09-25] VITALS: BP 160/88; PULSE 70; RESP 20; TEMP 98; O2SAT 94
[2016-09-25] MEDS: SODIUM CHLOR 0.9% 1000 ML INJ 1,000 ML IV SCH ×2 (02:36→14:33)
[2016-09-25 03:10] VITALS: PULSE 100
[2016-09-25 04:00] VITALS: BP 114/72; PULSE 77; RESP 20; TEMP 97.6; O2SAT 93
[2016-09-25] MEDS: HEPARIN SODIUM - SQ 10,000 UNITS/ML VIAL SQ SCH (05:41)
[2016-09-25] MEDS: DOCUSATE SODIUM 100 MG CAP PO SCH (05:41)
[2016-09-25 08:54] VITALS: BP 148/86; PULSE 79; RESP 18; TEMP 98.4; O2SAT 97
[2016-09-25] MEDS: MIDODRINE 5 MG TAB PO SCH ×2 (09:00→13:00)
--- NOTE | 2016-09-25 09:28 | PD.CONS ---
[facility] Service Rehabilitation Medicine Consult Requested By Dr Reeves Reason for Consult Comprehensive rehabilitation evaluation. Primary Care Physician Nesha Coronado MD History of Present Illness Herb Messina is an 7-year-old right hand dominant male admitted [facility] 09/21/[address] showed possible lacunar infarct in the left thalamus. Brain MRI shows subacute infarct in the left thalamic nucleus with minimal periventricular and deep white matter tracks small vessel ischemic changes. He was started on aspirin 81 mg by mouth daily. Medications for orthostatic hypotension have been adjusted. Review of Systems Constitutional: COMPLAINS OF: Fatigue Eyes: DENIES: Diplopia Ears, nose, mouth, throat: COMPLAINS OF: Hearing loss Respiratory: DENIES: Shortness of breath Cardiovascular: DENIES: Chest pain Gastrointestinal: COMPLAINS OF: Constipation, DENIES: Abdominal pain Genitourinary: DENIES: Urinary incontinence Integumentary: DENIES: Pruritus Hematologic/lymphatic: DENIES: Bruising Immunologic/allergic: DENIES: Urticaria Neurologic: COMPLAINS OF: Poor Balance, DENIES: Localized weakness, Paresthesias, Speech Problems Psychiatric: DENIES: Confusion Past Family Social History Allergies: Coded Allergies: No Known Allergies (Unverified , 09/21/16) Past Medical History Orthostatic hypotension Bladder cancer Prostate cancer Mild depression Past Surgical History Left ankle surgery Appendectomy Current Medications Current Medications Medications (Trade) Dose Ordered Sig/Corazon Route Start Time Stop Time Status Last Admin (CeleXA) 20 mg DAILY PO 09/22/16 09:00 09/24/16 10:13 (Flonase Moo Spr) 1 spray BID EACH NARE 09/21/16 21:00 09/24/16 21:31 (Percocet 5-325 Mg) 1 tab Q6H PRN PO 09/21/16 18:45 09/23/16 14:38 Tamsulosin HCl 0.4 mg 0.4 mg HS PO 09/21/16 21:00 09/24/16 21:31 (NS 1000 ml Inj) 1,000 ml @ 100 mls/hr Q10H IV 09/21/16 18:36 09/25/16 02:36 (Tylenol) 650 mg Q4H PRN PO 09/21/16 18:45 (Zofran Inj) 4 mg Q6H PRN IVP 09/21/16 18:45 (Reglan Inj) 5 mg Q6H PRN IV PUSH 09/21/16 18:45 (Dulcolax Supp) 10 mg DAILY PRN OK 09/21/16 18:45 (Colace) 100 mg Q12H PO 09/21/16 18:45 09/24/16 10:12 (Heparin Inj) 5,000 units Q12H SQ 09/21/16 18:45 09/25/16 05:41 (Narcan Inj) 0.4 mg UNSCH PRN IV 09/21/16 18:45 (NS Flush) 2 ml BID IVF 09/22/16 09:00 09/24/16 10:16 (NS Flush) 2 ml UNSCH PRN IVF 09/21/16 23:30 (D50w (Vial) Inj) 25 ml UNSCH PRN IV PUSH 09/21/16 23:30 (Glucagon Inj) 1 mg UNSCH PRN IM/SQ 09/21/16 23:30 (Ecotrin Ec) 81 mg DAILY PO 09/22/16 17:00 09/24/16 10:14 Patient Own Medication PT OWN MED: [facility]... TID PO 09/23/16 13:00 09/24/16 17:24 (Proamatine) 5 mg TID PO 09/23/16 18:00 09/24/16 17:23 Enalaprilat 1.25 mg 1.25 mg Q6H PRN IV PUSH 09/23/16 15:30 (Rocephin Inj/NS Inj) 100 ml @ 200 mls/hr Q24H IV 09/23/16 18:00 09/24/16 17:23 Family History Mother: : Alzheimer's disease Father: : Pancreatic cancer Social History Prior to admission patient lived with his son. His daughter assists with care. He reports that he was using a walker and a wheelchair for mobility inside the home Exam I&O / VS 09/24/16 09/24/16 09/25/16 15:00 23:00 07:00 Intake Total 240 ml 240 ml 240 ml Output Total 3 ml 300 ml 600 ml Balance 237 ml -60 ml -360 ml Intake Oral 240 ml 240 ml 240 ml Output Urine Total 3 ml 300 ml 600 ml # Bowel Movements 1 0 0 Vital Signs Date Time Temp Pulse Resp B/P Pulse Ox O2 Delivery O2 Flow Rate FiO2 3/10/17 08:54 98.4 79 18 148/86 97 09/25/16 04:00 97.6 77 20 114/72 93 09/25/16 03:10 100 09/25/16 00:00 98.0 70 20 160/88 94 09/24/16 20:00 96.5 81 20 173/80 96 09/24/16 16:26 97.6 54 18 123/67 98 09/24/16 13:35 96.9 55 18 109/60 96 General: No acute distress Respiratory: Lungs CTA, Non-labored respirations, BS equal Gastrointestinal: Positive Bowel Sounds, Non-Distended, Non-Tender Cardiovascular: Normal rate, Regular Rhythm Skin: Other (No rash noted) Musculoskeletal: Swelling (None in distal LE) Psychiatric: Cooperative Orientation: oriented to Self, oriented to Place, oriented to Time (With cues) , oriented to Situation Neurologic: Pupils (PERRLA), EOM (Intact), Speech (Clear and intelligible) Motor: Right Upper Extremity (5/5), Left Upper Extremity (5/5), Right Lower Extremity (5/5), Left Lower Extremity (5/5) Spasticity None noted Sensory Intact to light tough bilateral UE and LE DTRs: Normal Clonus: Negative Assessment and Plan Diagnosis: (1) CVA (cerebral vascular accident) Assessment 1. Left thalamic subacute infarct 2. Impaired mobility and ADLs 3. Orthostatic hypotension 4. History of bladder and prostate cancer 5. History of depression Plan 1. Physical therapy as mobilizing and patient is now standby assist for transfers and gait 25 feet with a rolling walker area continue to mobilize with careful fall precautions 2. Occupational therapy addressing ADLs and now minimal assistance for lower body dressing and contact guard for toileting. 3. Case management is stressing ongoing rehabilitation these at discharge. Agree with inpatient rehabilitation. 4. Will follow-up hospitalized and at discharge. Thank you for this consult Martha Alonzo MD Sep 25, 2016 09:28
[2016-09-25 10:10] VITALS: PULSE 64
[2016-09-25] MEDS: FLUTICASONE PROPIONATE 50 MCG/ACT 16 GM NASAL SPRAY EACH NARE SCH (10:16)
[2016-09-25] MEDS: SODIUM CHLORIDE 0.9% FLUSH 5 ML FLUSH IVF SCH (10:17)
[2016-09-25] MEDS: CITALOPRAM HYDROBROMIDE 20 MG TAB PO SCH (10:18)
[2016-09-25] MEDS: ASPIRIN EC 81 MG TABEC PO SCH (10:18)
[2016-09-25] MEDS: NORTHERA PO SCH ×2 (10:25→14:31)
[2016-09-25] MEDS ORDERED: CIPR-9 PO (11:44)
[2016-09-25] MEDS ORDERED: [UNRECOGNIZED DRUG - CODE] PO (11:52)
[2016-09-25] MEDS ORDERED: NORC5TAB PO (11:53)
--- NOTE | 2016-09-25 11:55 | HHI.DS ---
Discharge Summary Admission Date Sep 21, 2016 at 18:21 Discharge Date: Sep 25, 2016 Admitting Diagnosis UTI, AMS, frequent falls, VICK (1) CVA (cerebral vascular accident) ICD Code: I63.9 (2) Frequent falls ICD Code: R29.6 (3) Acute kidney injury ICD Code: N17.9 (4) Orthostatic hypotension ICD Code: I95.1 Procedures none Brief History - From Admission History from patient, patient's daughter at the bedside, and review of medical records Patient reported that he came to the hospital because started once, he just been feeling extremely dizzy. He denies passing out episodes. He states he was awake and alert THIS time. He denies any focal weakness. He denies any recent fever/nausea/vomiting/diarrhea. Reports of burning urination. However states that he has been having that for a long time. Daughter at the bedside reported to me that patient has been suffering from postural hypotension for the past 1 year or so. She stated that he had been on midodrine for this and was also started on trial medication by agricultural systems specialist. She stated this medication ran out a few days ago and she was wondering whether his symptoms are getting worse because of not taking this medicine. However she states that this is also different from what his normal postural hypotension episodes are. She described that he was quite dizzy and almost passing out even while he was sleeping in bed lying down. She states this is not his normal. She was wondering whether he is having memory impairment and early dementia symptoms as well. As to his burning urination, she reports that he has been having this because of bladder cancer. She states that he was receiving BCG vaccine injections for the treatment and was told by Dr. Mi that these symptoms are normal part of treatment. Daughter herself also denies any other symptoms apart from this burning urination and dizziness with almost passing out episodes. CBC/BMP: 09/22/16 0350 09/22/16 0350 PE at Discharge GENERAL: This is a well-nourished, well-developed patient, in no apparent distress. SKIN: No rashes, warm and dry HEAD: Atraumatic. Normocephalic. EYES: Pupils equal round and reactive. Extraocular motions intact. No scleral icterus. ENT: Nose without bleeding, or drainage, Airway patent. NECK: Trachea midline. Supple CARDIOVASCULAR: Regular rate and rhythm without murmurs, gallops, or rubs. RESPIRATORY: Fair air entry bilaterally. No wheezes, rales, or rhonchi. GASTROINTESTINAL: Abdomen soft, non-tender, nondistended. Positive bowel sounds MUSCULOSKELETAL: Extremities without clubbing, cyanosis, or edema. Pedal pulses appreciated NEUROLOGICAL: Cranial nerves II-12 intact, Awake and alert. Moves all extremity. Normal speech.no focal neurological deficit Hospital Course 81 y/o male admitted with Subacute thalamus nuclei ischemia Presented in Dizziness/near syncopal episodes Symptomatic UTI/dysuriain setting of BCG injections for bladder/prostate cancer. Start Rocephin Frequent urinationpost BCG injections for bladder/prostate cancer. History of chronic Postural hypotension Bladder cancer,Prostate cancer,Mild depression neurology consulted Neurochecks every 4 hours.Head of bed flat. Rehabilitation consulted . Patient's head MRIreviewed personally. Subacute thalamic nuclei CVA was noted. MRI was advised. Patient's MRA of the brainresults noted. No significant vascular compromise. aspirin 81 mg, strict control blood pressure systolic less than 130 or neurology recommendation, however patient has significant orthostatic hypotension problem for which he is on Midrin and northera 600 mg tid , I will gradually drop his northera to 300 mg tid instead of 600, yesterday or a drop Midodrin 25 mg which give good results on the blood pressure. D/W with the patient and his daughter as well as the nurse and the correctional case records supervisor , patient may benefit from few days at the rehabilitation facility for further monitoring of his blood pressure considering his orthostatic and CVA problem so he may need to be under supervision to avoid return to hospital with either syncope or stroke Hold Midodrin in order to keep blood pressure systolic is 130 Added Vasotec when necessary UA positive Leuk est and WBC, s/p Rocephin, cipro , DVT prophylaxiswith Lovenox., Giproph with protonix at the rehab if pt bp went low , please increase his northera (now on 300 mg tid ) can go up to 500 tid ) also can increase midodrine (now on 5 mg ) pt have orthostatic hypotension and recently had ischmic stroke , range of bp should be sbp<140 , but >100 or 110 Pt Condition on Discharge: Fair Discharge Disposition: Discharge to SNF Discharge Time: > 30 minutes Discharge Instructions DIET: Follow Instructions for: Heart Healthy Diet Speech Therapy-Diet Recommends: Regular Activities you can perform: See Additionl Instruction Other Activity Instructions: per pt Follow up Referrals: Cardiology - 1 Week with Phan Loomis MD Neurology - 1 Week with Myron Devi MD New Medications: Ciprofloxacin (Cipro) 500 Mg Tab 500 MG PO BID Infection #14 Ref 0 TAB Droxidopa (Northera) 100 Mg Cap 300 TAB PO TID orthostatic bp Days 30 Ref 0 UNITS Hydrocodone-Acetaminophen ([place]) 5-325 mg Tab 1 TAB PO Q6H PRN PAIN #15 Ref 0 TAB Walker with Front Wheels (Walker with Front Wheels) 1 Mis Mis 1 EA .ROUTE DIRECTED strok #1 Ref [address] (Aspirin EC) 81 Mg Tabdr 81 MG PO DAILY tia #30 TAB Continued Medications: Cetirizine (Cetirizine) 10 Mg Tab 10 MG PO DAILY Allergies Ref 0 TAB Citalopram (Citalopram) 20 Mg Tab 20 MG PO DAILY Control Depression #30 Ref 0 TAB Fluticasone Nasal [place] (Fluticasone Nasal [place]) 50 Mcg/Act Naspr 50 MCG EACH NARE BID 50 mcg/spray Allergy Management #1 Ref 0 BOTTLE Multiple Vitamins W/ Minerals (Preservision Areds 2) 1 Cap 1 CAP PO DAILY Nutritional Supplement Ref 0 CAP Tamsulosin (Tamsulosin) 0.4 Mg Cap 0.4 MG PO HS Manage Prostate Problems #30 Ref 0 CAP Betty Meza MD Sep 25, 2016 11:55
[2016-09-25 12:46] VITALS: BP 149/79; PULSE 72; RESP 18; TEMP 97.8; O2SAT 97
[2016-09-26] MEDS ORDERED: CIPROFLOXACIN 500 MG TAB PO SCH (21:00)
== END 2016-09-25 16:01 | DRG 65 ==
LOC: NEPA 14:52 → NEDA 18:21 → NEDH 09-22 00:59 → N05B 09-22 13:07
PROVIDERS: ADMIT Hospitalist; ATTEND Hospitalist
DX: I63.9 Cerebral infarction, unspecified (principal); N17.9 Acute kidney failure, unspecified; N39.0 Urinary tract infection, site not specified; F03.90 Unspecified dementia, unspecified severity, without behavioral disturbance, psychotic disturbance, mood disturbance, and anxiety; R31.9 Hematuria, unspecified; C61 Malignant neoplasm of prostate; C67.9 Malignant neoplasm of bladder, unspecified; I95.1 Orthostatic hypotension; R42 Dizziness and giddiness; R35.0 Frequency of micturition; I10 Essential (primary) hypertension; F32.9 Major depressive disorder, single episode, unspecified; Z99.3 Dependence on wheelchair; Z79.82 Long term (current) use of aspirin; R29.6 Repeated falls
CPT/HCPCS: 70450; 70544; 70551; 80048; 80061; 80076; 81001; 82550; 83036; 84484; 85025; 85610; 87040; 87086; 93005; G8987-GO; G8988-GO; J0696; J1644; J7030

== ENCOUNTER 2016-12-08 16:32 | Observation (INO) | payer MEDICARE ==
[2016-12-08] VITALS (7 sets, daily range): BP systolic 83–187; BP diastolic 43–88; PULSE 66–86; RESP 12–18; TEMP 97.8; O2SAT 97–99
[~2016-12-08] VITALS: Ht 185.4 cm; Wt 89.0 kg
[~2016-12-08 16:32] MED LIST changes: +ASPI81TA11 PO; +CETI10 PO; +CIPR-9 PO; +FLUT50SP EACH NARE; -LORTA5 PO; +MIDO10TA PO; -MIDO5 PO; +NORC5TAB PO; +OXYC1TAB63 PO; +PRESCAP5 PO; +TAMS0.4C4 PO; -TAMS0.4C67 PO; -URIB118C; +WALKER WHEELS/F1 MIS; +[UNRECOGNIZED DRUG - CODE]; +[UNRECOGNIZED DRUG - CODE] PO
[2016-12-08] MEDS ORDERED: SODIUM CHLOR 0.9% 1000 ML INJ 1,000 ML IV SCH ×3 (17:20→19:38)
--- NOTE | 2016-12-08 17:42 | PD ---
HPI Chief Complaint: Cardiac Complaint Time Seen by Provider: 17:36 Travel History International Travel<30 days: No Contact w/Intl Traveler<30days: No Traveled to known affect area: No History of Present Illness HPI 81-year-old male that presents to the ED for evaluation of syncope and orthostatic hypotension. Patient has a chronic history of orthostatic hypotension and he is also had a history of bladder cancer as well as prostate cancer and previous CVA that presents to the ED for evaluation of orthostatic hypotension and syncope. Patient has had for the past 3 days multiple episodes of fall. Patient and daughter who is with him state that patient has been doing reasonably well after his stroke. Patient was put on new medications that seem to be working for him for his symptoms and he was able to even walk. Patient now has continued to have the syncopal episodes and cannot stand without falling. Patient was started recently on doxycycline and she is not sure if this is related to why her symptoms came back. Per daughter he seems to be a cycle where he gets better and then he goes back to the same and then she gets back to normal. Patient follows with Dr. Kraft who has him on different blood pressure medications. Patient denies any chest pain or shortness of breath. No headache. Patient was put on doxycycline secondary to removal of skin cancer. He states that the last time he fell was inside and hit his but. Patient used to be able to ambulate but for the past 3 days he's not been able to do so. And now he is wheelchair-bound again. Patient went to see the urologist today for a cystoscopy which revealed the prostate and the bladder cancer had come back and they are on the process of likely having surgery. PFSH Past Medical History Arthritis: No Asthma: No Heart Rhythm Problems: No Cancer: Yes (bladder cancer AND PROSTATE CA ) Cardiovascular Problems: Yes (ORTHOSTATIC HYPOTENSION) High Cholesterol: No Chemotherapy: No Chest Pain: No Congestive Heart Failure: No COPD: No Cerebrovascular Accident: Yes Diminished Hearing: No Endocrine: No GERD: No Genitourinary: Yes (bladder ca) Headaches: Yes Hiatal Hernia: No Immune Disorder: No Kidney Stones: Yes Musculoskeletal: No Neurologic: Yes Psychiatric: No Reproductive: No Respiratory: No Migraines: No Radiation Therapy: No Renal Failure: No Seizures: No Sleep Apnea: No Ulcer: No Tetanus Vaccination: Unknown Influenza Vaccination: Yes Past Surgical History Abdominal Surgery: Yes (APPENDEX) AICD: No Appendectomy: Yes Arteriovenous Shunt: No Cardiac Surgery: No Ear Surgery: Yes 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) Genitourinary Surgery: Yes Gynecologic Surgery: No Insulin Pump: No Joint Replacement: No Oral Surgery: No Pacemaker: No Thoracic Surgery: No Other Surgery: Yes (bladder surgery) Social History Alcohol Use: No Tobacco Use: No Substance Use: No Allergies-Medications (Allergen,Severity, Reaction): Coded Allergies: No Known Allergies (Unverified , 12/08/16) Reported Meds & Prescriptions Reported Meds & Active Scripts Active Northera (Droxidopa) 100 Mg Cap 300 Tab PO TID 30 Days Aspirin EC (Aspirin) 81 Mg Tabdr 81 Mg PO DAILY Reported Fluticasone Nasal [place] 50 Mcg/Act Naspr 1 [place] EACH NARE DAILY PRN 50 mcg/spray Cetirizine (Cetirizine HCl) 10 Mg Tab 10 Mg PO DAILY Tamsulosin (Tamsulosin HCl) 0.4 Mg Cap 0.4 Mg PO HS Midodrine 10 Mg Tab 10 Mg PO TID Citalopram (Citalopram Hydrobromide) 20 Mg Tab 20 Mg PO DAILY Oxycodone-Acetaminophen 5-325 mg Tab 1 Tab PO Q6H PRN [place] (Hydrocodone-Acetaminophen) 5-325 mg Tab 1 Tab PO Q6H PRN Review of Systems Except as stated in HPI: all other systems reviewed are Neg Physical Exam Narrative GENERAL: SKIN: Warm and dry. Patient does have a surgical scar on the mid thoracic back with 6 sutures. No sign of erythema or mass. HEAD: Atraumatic. Normocephalic. EYES: Pupils equal and round 4 mm reactive to light and accommodation. No scleral icterus. No injection or drainage. ENT: No nasal bleeding or discharge. Mucous membranes pink and moist. Tongue is midline. No Uvula deviation. NECK: Trachea midline. No JVD. CARDIOVASCULAR: Regular rate and rhythm. No murmurs, S3, S4. RESPIRATORY: No accessory muscle use. Clear to auscultation. Breath sounds equal bilaterally. GASTROINTESTINAL: Abdomen soft, non-tender, nondistended. Hepatic and splenic margins not palpable. MUSCULOSKELETAL: Extremities without clubbing, cyanosis, or edema. No obvious deformities. Full range of motion of the upper and lower extremities bilaterally. 2+ pulses bilaterally. NEUROLOGICAL: Awake and alert. No obvious cranial nerve deficits. Motor grossly within normal limits. Five out of 5 muscle strength in the arms and legs. Normal speech. PSYCHIATRIC: Appropriate mood and affect; insight and judgment normal. Data Data Last Documented VS Vital Signs Date Time Temp Pulse Resp B/P Pulse Ox O2 Delivery O2 Flow Rate FiO2 12/08/16 18:30 76 18 153/88 99 Room Air 12/08/16 16:35 97.8 Orders Electrocardiogram (12/08/16 17:14) Complete Blood Count With Diff (12/08/16 17:14) Comprehensive Metabolic Panel (12/08/16 17:14) Ckmb (Isoenzyme) Profile (12/08/16 17:14) Troponin I (12/08/16 17:14) Prothrombin Time / Inr (Pt) (12/08/16 17:14) Act Partial Throm Time (Ptt) (12/08/16 17:14) Urinalysis - C+S If Indicated (12/08/16 17:14) Magnesium (Mg) (12/08/16 17:14) Thyroid Stimulating Hormone (12/08/16 17:14) Chest, Single Ap (12/08/16 17:14) Ct Brain W/O Iv Contrast(Rout) (12/08/16 17:14) Iv Access Insert/Monitor (12/08/16 17:14) Ecg Monitoring (12/08/16 17:14) Oximetry (12/08/16 17:14) Orthostatic Vital Signs (12/08/16 17:14) Sodium Chlor 0.9% 1000 Ml Inj (Ns 1000 M (12/08/16 17:20) Urine Culture (12/08/16 17:20) Sodium Chlor 0.9% 1000 Ml Inj (Ns 1000 M (12/08/16 18:47) Labs Laboratory Tests Test 12/08/16 17:20 White Blood Count 6.4 TH/MM3 Red Blood Count 4.56 MIL/MM3 Hemoglobin 14.1 GM/DL Hematocrit 42.7 % Mean Corpuscular Volume 93.7 FL Mean Corpuscular Hemoglobin 31.0 PG Mean Corpuscular Hemoglobin 33.1 % Concent Red Cell Distribution Width 14.3 % Platelet Count 146 TH/MM3 Mean Platelet Volume 7.7 FL Neutrophils (%) (Auto) 59.0 % Lymphocytes (%) (Auto) 23.7 % Monocytes (%) (Auto) 12.1 % Eosinophils (%) (Auto) 4.6 % Basophils (%) (Auto) 0.6 % Neutrophils # (Auto) 3.8 TH/MM3 Lymphocytes # (Auto) 1.5 TH/MM3 Monocytes # (Auto) 0.8 TH/MM3 Eosinophils # (Auto) 0.3 TH/MM3 Basophils # (Auto) 0.0 TH/MM3 CBC Comment DIFF FINAL Differential Comment Prothrombin Time 10.4 SEC Prothromb Time International 0.9 RATIO Ratio Activated Partial 24.4 SEC Thromboplast Time Urine Color YELLOW Urine Turbidity HAZY Urine pH 5.5 Urine Specific [place] 1.025 Urine Protein 100 mg/dL Urine Glucose (UA) NEG mg/dL Urine Ketones NEG mg/dL Urine Occult Blood MOD Urine Nitrite NEG Urine Bilirubin NEG Urine Urobilinogen 2.0 MG/DL Urine Leukocyte Esterase LARGE Urine RBC 134 /hpf Urine WBC 116 /hpf Urine Squamous Epithelial 3 /hpf Cells Urine Transitional Epithelial 1 /hpf Cells Urine Amorphous Sediment RARE Urine Bacteria FEW /hpf Urine Hyaline Casts 83 /lpf Urine Mucus MOD /lpf Microscopic Urinalysis Comment CULTURE INDICATED Sodium Level 139 MEQ/L Potassium Level 4.6 MEQ/L Chloride Level 105 MEQ/L Carbon Dioxide Level 26.3 MEQ/L Anion Gap 8 MEQ/L Blood Urea Nitrogen 29 MG/DL Creatinine 1.55 MG/DL Estimat Glomerular Filtration 43 ML/MIN Rate Random Glucose 149 MG/DL Calcium Level 9.2 MG/DL Magnesium Level 2.4 MG/DL Total Bilirubin 0.4 MG/DL Aspartate Amino Transf 15 U/L (AST/SGOT) Alanine Aminotransferase 19 U/L (ALT/SGPT) Alkaline Phosphatase 101 U/L Total Creatine Kinase 44 U/L Troponin I LESS THAN 0.02 NG/ML Total Protein 6.7 GM/DL Albumin 3.7 GM/DL Thyroid Stimulating Hormone 1.220 uIU/ML 3rd Gen [facility] Medical Decision Making Medical Screen Exam Complete: Yes Emergency Medical Condition: Yes Medical Record Reviewed: Yes Interpretation(s) CBC & BMP Diagram 12/08/16 17:20 LFTS WNL coags WNL EKG shows sinus rhythm with no sign of acute ischemia or arrhythmia read by me and attending. Last Impressions Head CT 12/08/16 8314 Signed Impressions: Service Date/Time: Thursday, December 08, 2016 17:49 - CONCLUSION: 1. No acute hemorrhage or mass effect. 2. Old infarct in left thalamus. 3. Atrophy commensurate with age. Francesco Putnam MD Chest X-Ray 12/08/16 1714 Signed Impressions: Service Date/Time: Thursday, December 08, 2016 17:28 - CONCLUSION: Stable chest x-ray without acute finding identified. Bilateral pleural-based calcification remains present and suggestive of prior asbestos exposure. Yordy Braun MD Differential Diagnosis Orthostatic hypotension versus syncope versus UTI versus CVA versus kidney injury versus hypotension versus acute on chronic illness Narrative Course 81-year-old male that presents to the ED for evaluation of orthostatic hypotension and falls. Patient was properly examined and was found to have signs and symptoms consistent with likely orthostatic hypotension and syncope. Labs and imaging ordered. Labs and imaging showed orthostatic hypotension. Otherwise unremarkable. Patient was reassured. My attending Dr. Mitchell the patient and agrees the patient should be admitted. I spoke with Dr. Kraft patient's section leader screen printing who will come here and see the patient and agrees to admission. Case discussed with Dr. Arce who agrees to admission. Diagnosis Primary Impression: Orthostatic hypotension Additional Impressions: Syncope Qualified Code: R55 - Syncope, unspecified syncope type Frequent falls Admitting Information Admitting Physician Requests: Observation Condition: Serious Jimmy Knapp December 08, 2016 17:42
[2016-12-08 17:46] LABS: AUTOMATED NEUTROPHIL # 3.8 TH/MM3 (1.8-7.7); BACTERIA, URINE FEW /hpf; BASOPHIL % 0.6 % (0.0-2.0); BLOOD, URINE MOD (NEG); COMMENT (UR) CULTURE INDICATED; CULTURE IF INDICATED CULTURE INDICATED; EOSINOPHIL # 0.3 TH/MM3 (0-0.4); EOSINOPHIL % 4.6 % (0.0-4.0); GLUCOSE,URINE NEG (NEG); HEMATOCRIT 42.7 % (39.0-51.0); HEMO FLAGS DIFF FINAL; HYALINE CAST, URINE 83 /lpf (RARE); KETONE, URINE NEG (NEG); LYMPH % 23.7 % (9.0-44.0); LYMPHOCYTE # 1.5 TH/MM3 (1.0-4.8); MEAN CELL VOLUME 93.7 FL (80.0-100.0); MEAN CORPUSCULAR HGB CONC 33.1 % (32.0-36.0); MONO % 12.1 % (0.0-8.0); MUCUS URINE MOD /lpf (OCC); NITRITE,URINE NEG (NEG); PH, URINE 5.5 (5.0-8.5); PLATELET COUNT 146 TH/MM3 (150-450); RED BLOOD COUNT 4.56 MIL/MM3 (4.50-5.90); RED CELL DISTRIBUTION WIDTH 14.3 % (11.6-17.2); SQUAMOUS EPITHELIAL CELL URINE 3 /hpf (0-5); TRANSITIONAL EPI CELLS, URINE 1 /hpf; URINE COLOR YELLOW (YELLW/STRAW); WHITE BLOOD COUNT 6.4 TH/MM3 (4.0-11.0)
--- NOTE | 2016-12-08 17:46 | RADRPT ---
EXAM DATE/TIME: 12/08/2016 17:28 [facility] COMPARISON: CHEST SINGLE AP, April 10, 2016, 14:26. INDICATIONS : Short of breath and syncope. MEDICAL HISTORY : Carcinoma, prostate. Carcinoma, bladder. Hypotension. SURGICAL HISTORY : None. ENCOUNTER: Initial ACUITY: 1 day PAIN SCORE: 0/10 LOCATION: Bilateral chest FINDINGS: Portable AP view of the chest demonstrates a normal-sized cardiac silhouette. Lungs are underinflated . There is pleural based calcification bilaterally. No effusion, consolidation, or pneumothorax is vi sualized. Bones and soft tissues demonstrate no acute finding. CONCLUSION: Stable chest x-ray without acute finding identified. Bilateral pleural-based calcification remains pr esent and suggestive of prior asbestos exposure. Yordy Braun MD on December 08, 2016 at 17:43 Board Certified Radiologist. This report was verified electronically.
[2016-12-08 17:47] LABS: APTT (PATIENT) 24.4 SEC (24.3-30.1); INTERNATIONAL NORMALIZED RATIO 0.9 RATIO; PROTHROMBIN TIME - PATIENT 10.4 SEC (9.8-11.6)
[2016-12-08 17:55] LABS: ALT (GPT) 19 U/L (12-78); ANION GAP 8 MEQ/L (5-15); AST (GOT) 15 U/L (15-37); BICARBONATE 26.3 MEQ/L (21.0-32.0); BLOOD UREA NITROGEN 29 MG/DL (7-18); CHLORIDE 105 MEQ/L (98-107); GLOMERULAR FILTRATION RATE 43 ML/MIN (>89); MAGNESIUM 2.4 MG/DL (1.5-2.5); POTASSIUM 4.6 MEQ/L (3.5-5.1); SODIUM (NA) 139 MEQ/L (136-145)
[2016-12-08 18:04] LABS: ALKALINE PHOSPHATASE 101 U/L (45-117); TOTAL BILIRUBIN ADULT 0.4 MG/DL (0.2-1.0)
[2016-12-08 18:07] LABS: CREATINE KINASE 44 U/L (39-308)
--- NOTE | 2016-12-08 18:22 | RADRPT ---
EXAM DATE/TIME: 12/08/2016 17:49 [facility] COMPARISON: CT BRAIN W/O CONTRAST, September 21, 2016, 17:36. INDICATIONS : Low blood pressure with fall this past Wednesday. Headache RADIATION DOSE: 56.35 CTDIvol (mGy) MEDICAL HISTORY : Carcinoma, bladder. Carcinoma, prostate. Hypertension. Cardiac SURGICAL HISTORY : Appendectomy. ENCOUNTER: Initial ACUITY: 2 days PAIN SCALE: 1/10 LOCATION: cranial TECHNIQUE: Multiple contiguous axial images were obtained of the head. Using automated exposure control and adj ustment of the mA and/or kV according to patient size, radiation dose was kept as low as reasonably a chievable to obtain optimal diagnostic quality images. FINDINGS: CEREBRUM: The ventricles are normal for age with mild to moderate atrophic change. There is an old lacunar infa rct again noted in the left thalamus. No evidence of midline shift, mass lesion, hemorrhage or acute infarction. No extra-axial fluid collections are seen. POSTERIOR FOSSA: The cerebellum and brainstem are intact. The 4th ventricle is midline. The cerebellopontine angle i s unremarkable. EXTRACRANIAL: The visualized portion of the orbits is intact. SKULL: The calvaria is intact. No evidence of skull fracture. CONCLUSION: 1. No acute hemorrhage or mass effect. 2. Old infarct in left thalamus. 3. Atrophy commensurate with age. Francesco Putnam MD on December 08, 2016 at 18:19 Board Certified Radiologist. This report was verified electronically.
--- NOTE | 2016-12-08 19:25 | PD ---
Data Data Last Documented VS Vital Signs Date Time Temp Pulse Resp B/P Pulse Ox O2 Delivery O2 Flow Rate FiO2 12/08/16 18:30 76 18 153/88 99 Room Air 12/08/16 16:35 97.8 Orders Electrocardiogram (12/08/16 17:14) Complete Blood Count With Diff (12/08/16 17:14) Comprehensive Metabolic Panel (12/08/16 17:14) Ckmb (Isoenzyme) Profile (12/08/16 17:14) Troponin I (12/08/16 17:14) Prothrombin Time / Inr (Pt) (12/08/16 17:14) Act Partial Throm Time (Ptt) (12/08/16 17:14) Urinalysis - C+S If Indicated (12/08/16 17:14) Magnesium (Mg) (12/08/16 17:14) Thyroid Stimulating Hormone (12/08/16 17:14) Chest, Single Ap (12/08/16 17:14) Ct Brain W/O Iv Contrast(Rout) (12/08/16 17:14) Iv Access Insert/Monitor (12/08/16 17:14) Ecg Monitoring (12/08/16 17:14) Oximetry (12/08/16 17:14) Orthostatic Vital Signs (12/08/16 17:14) Sodium Chlor 0.9% 1000 Ml Inj (Ns 1000 M (12/08/16 17:20) Urine Culture (12/08/16 17:20) Sodium Chlor 0.9% 1000 Ml Inj (Ns 1000 M (12/08/16 18:47) Admit Order (Ed Use Only) (12/08/16 19:07) Labs Laboratory Tests Test 12/08/16 17:20 White Blood Count 6.4 TH/MM3 Red Blood Count 4.56 MIL/MM3 Hemoglobin 14.1 GM/DL Hematocrit 42.7 % Mean Corpuscular Volume 93.7 FL Mean Corpuscular Hemoglobin 31.0 PG Mean Corpuscular Hemoglobin 33.1 % Concent Red Cell Distribution Width 14.3 % Platelet Count 146 TH/MM3 Mean Platelet Volume 7.7 FL Neutrophils (%) (Auto) 59.0 % Lymphocytes (%) (Auto) 23.7 % Monocytes (%) (Auto) 12.1 % Eosinophils (%) (Auto) 4.6 % Basophils (%) (Auto) 0.6 % Neutrophils # (Auto) 3.8 TH/MM3 Lymphocytes # (Auto) 1.5 TH/MM3 Monocytes # (Auto) 0.8 TH/MM3 Eosinophils # (Auto) 0.3 TH/MM3 Basophils # (Auto) 0.0 TH/MM3 CBC Comment DIFF FINAL Differential Comment Prothrombin Time 10.4 SEC Prothromb Time International 0.9 RATIO Ratio Activated Partial 24.4 SEC Thromboplast Time Urine Color YELLOW Urine Turbidity HAZY Urine pH 5.5 Urine Specific [place] 1.025 Urine Protein 100 mg/dL Urine Glucose (UA) NEG mg/dL Urine Ketones NEG mg/dL Urine Occult Blood MOD Urine Nitrite NEG Urine Bilirubin NEG Urine Urobilinogen 2.0 MG/DL Urine Leukocyte Esterase LARGE Urine RBC 134 /hpf Urine WBC 116 /hpf Urine Squamous Epithelial 3 /hpf Cells Urine Transitional Epithelial 1 /hpf Cells Urine Amorphous Sediment RARE Urine Bacteria FEW /hpf Urine Hyaline Casts 83 /lpf Urine Mucus MOD /lpf Microscopic Urinalysis Comment CULTURE INDICATED Sodium Level 139 MEQ/L Potassium Level 4.6 MEQ/L Chloride Level 105 MEQ/L Carbon Dioxide Level 26.3 MEQ/L Anion Gap 8 MEQ/L Blood Urea Nitrogen 29 MG/DL Creatinine 1.55 MG/DL Estimat Glomerular Filtration 43 ML/MIN Rate Random Glucose 149 MG/DL Calcium Level 9.2 MG/DL Magnesium Level 2.4 MG/DL Total Bilirubin 0.4 MG/DL Aspartate Amino Transf 15 U/L (AST/SGOT) Alanine Aminotransferase 19 U/L (ALT/SGPT) Alkaline Phosphatase 101 U/L Total Creatine Kinase 44 U/L Troponin I LESS THAN 0.02 NG/ML Total Protein 6.7 GM/DL Albumin 3.7 GM/DL Thyroid Stimulating Hormone 1.220 uIU/ML 3rd Gen [facility] Supervised Visit with EMERALD: Yes Narrative Course The history, exam, and medical decision-making in the associated mid-level provider note were completed with my assistance. I reviewed and agree with the findings presented. I attest that I had a [id number] encounter with the patient on the same day, and personally performed and documented my assessment and findings in the medical record. *My assessment and Findings: 7-year-old male with a history of severe orthostatic hypotension, on Midrin as well as another experimental alpha/beta agonist with improvement. He followed by Dr. Quadra redness is been an ongoing issue for him. Over the past week or so symptoms are getting progressively worse with increased falls lightheadedness and confusion. He is due for a cystoscopy today which he did not want to put off and so they delayed coming to the emergency department. Cystoscopy did confirm recurrent prostate and bladder CA. Treatment for this is undetermined but given his worsening orthostatic symptoms are brought him to the emergency department. He had marked orthostasis on exam, without a clear etiology. We'll bring him into the hospital for further evaluation, Dr. Kraft come see him, continue medications, and reassess. Diagnosis Primary Impression: Orthostatic hypotension Additional Impressions: Frequent falls Syncope Qualified Code: R55 - Syncope, unspecified syncope type Condition: Serious Gallo Mitchell MD December 08, 2016 19:25
[2016-12-08] MEDS ORDERED: ONDANSETRON HCL 4 MG/2 ML VIAL IVP PRN (19:45)
[2016-12-08] MEDS ORDERED: NALOXONE HCL 0.4 MG/ML AMP IV PRN (19:45)
[2016-12-08] MEDS ORDERED: ACETAMINOPHEN 325 MG TAB PO PRN (19:45)
[2016-12-08] MEDS ORDERED: SODIUM CHLORIDE 0.9% FLUSH 10 ML FLUSH IV FLUSH PRN (19:45)
--- NOTE | 2016-12-08 19:45 | EKG ---
Date Performed: 12/08/2016 Time Performed: 17:22:48 PTAGE: 81 years EKG: Sinus rhythm WITH FREQUENT ECTOPIC PREMATURE COMPLEXES NONSPECIFIC T-WAVE ABNORMALITY ABNORMAL RHYTHM ECG PREVIOUS TRACING : 09/21/2016 17.17 Compared to prior tracing no significant change DOCTOR: Phan Loomis Interpretating Date/Time 12/08/2016 19:44:18
--- NOTE | 2016-12-08 20:19 | MB ---
cc: ANA POLANCO DATE OF CONSULTATION 12/08/2016 HISTORY OF THE PRESENT ILLNESS An 81-year-old white male, known to my practice, with a history of syncope and orthostatic hypotension. His blood pressure has been stable on a combination of Midodrine and Northera. Over the last three days he has had increased episodes of falling, dizziness, lightheadedness and what his daughter calls "zoning out". He recently underwent surgery for skin cancer and was placed on doxycycline. He has not been drinking or eating enough recently. He was able to walk into his neurologist's office recently, now he is in the wheelchair again. He had cystoscopy which showed that his bladder cancer has recurred despite therapy with BCG and that he may need to have a cystectomy. PAST MEDICAL HISTORY 1. Bladder and prostate cancer. 2. Orthostatic hypotension. 3. Cerebrovascular accident. 4. Nephrolithiasis. 5. Headaches. 6. Appendectomy. 7. Macular degeneration. MEDICATIONS 1. Northera 100 milligrams three tablets three times a day. 2. Midodrine 10 milligrams three times a day. 3. Baby aspirin. 4. Fluticasone nasal spray. 5. Cetirizine 6. Tamsulosin. 7. Citalopram. 8. Oxycodone. 9. Acetaminophen. 10. Shannon as needed. ALLERGIES NONE. SOCIAL HISTORY The patient does not smoke. He has no alcohol. He is accompanied by his family. FAMILY HISTORY Negative for heart disease. REVIEW OF SYSTEMS Otherwise negative. PHYSICAL EXAMINATION VITAL SIGNS: Blood pressure 153/88, pulse 76 and irregular. HEENT: Negative. 2+ carotid upstroke. No bruits. LUNGS: Clear. HEART: Irregular with no murmur, gallop or rub. ABDOMEN: Soft. No bruits. EXTREMITIES: Without edema. 2+ distal pulses. NEUROLOGICAL: Grossly nonfocal. EKG was reviewed and showed normal sinus rhythm, PACs and PVCs. Nonspecific T wave changes. LABORATORY DATA Hemoglobin 14.1. Potassium 4.6. BUN 29, creatinine 1.55. Troponin is less than 0.02. AST and ALT normal. TSH 1.2. DIAGNOSES 1. Syncope. 2. Frequent falls. 3. Orthostatic hypotension. 4. Bladder and prostate cancer ( recurrent ). 5. History of cerebrovascular accident. DISPOSITION Mr. Messina likely suffers from dehydration. I recommend hydration with normal saline. I also recommend to continue combination of Northera 300 milligrams three times a day and Midodrine 10 milligrams three times a day. He will be admitted to the hospital and monitored on telemetry. I will follow him for cardiology during his hospitalization. He may also benefit from neurology re-evaluation. MD JAMI Streeter/CEDRICK /7:37 PM /8:04 PM KEN
[2016-12-08] MEDS: SODIUM CHLORIDE 0.9% FLUSH 10 ML FLUSH IV FLUSH SCH (20:50)
[2016-12-08] MEDS: DOCUSATE SODIUM 100 MG CAP PO SCH (20:53)
--- NOTE | 2016-12-08 21:04 | HHI.HP ---
[facility] Nesha Coronado MD Admission Diagnosis symptomatic orthosatic hypotension, dizzyness Diagnoses: Chief Complaint: Dizziness with frequent falls Travel History International Travel<30 Days: No Contact w/Intl Traveler <30 Da: No Traveled to Known Affected Are: No History of Present Illness This a pleasant 81-year-old male patient with a past medical history which includes: Bladder and prostate cancer, orthostatic hypotension, CVA, macular degeneration and hard of hearing. Patient presents to the emergency department today with complaints of worsening symptomatic orthostatic hypotension over the past 5 days and multiple falls over the past 3 days. Patient has had incidents of systolic hypotension in the past that had been stable on a combination of Minitran and Northera which is managed by his composite worker Dr. Loomis. Patient did have skin cancer removed from his upper right posterior thorax and was started on doxycycline 12/01/2016 then the worsening symptomatic orthostatic hypotension began 12/03/2016. Patient also had cystoscopy today which revealed progression of the bladder cancer. Patient complains of dizziness which he describes as a full feeling in his head as well as well as flushed hot sensation on the top of his head before he falls. Patient reports this dizzy/ lightheaded sensation both sitting and standing. Patient this point is using a wheelchair to get around as his family is concerned about risk of fall. Patient 's daughter is at bedside believes these symptoms are exacerbated by his lack of appetite patient eats one meal a day and his lack of thirst patient reports he drinks approximally three16 ounce bottles of water per day along with one to 2 glasses of coffee or tea. Patient reports his weight has been stable. Of note patient reports occasional loss of bladder control during his falls. Patient denies loss of consciousness or head trauma with the recent falls. Blood glucose on arrival 149. Patient also complains of burning with urination which has been going on since February 2016, with no improvement despite BCG treatments for bladder cancer and multiple by mouth antibiotics for UTI treatment. Patient denies chest pain, shortness of breath, nausea, vomiting, diarrhea, fevers, chills, cough or congestion. Review of Systems Except as stated in HPI: all other systems reviewed are Neg Past Family Social History Past Medical History Bladder and prostate cancer, orthostatic hypotension, CVA, macular degeneration and hard of hearing Past Surgical History TURP, left ankle surgery, appendectomy, cystoscopy Reported Medications Northera (Droxidopa) 100 Mg Cap 300 Tab PO TID 30 Days Aspirin EC (Aspirin) 81 Mg Tabdr 81 Mg PO DAILY Fluticasone Nasal [place] 50 Mcg/Act Naspr 1 [place] EACH NARE DAILY PRN 50 mcg/spray Cetirizine (Cetirizine HCl) 10 Mg Tab 10 Mg PO DAILY Tamsulosin (Tamsulosin HCl) 0.4 Mg Cap 0.4 Mg PO HS Midodrine 10 Mg Tab 10 Mg PO TID Citalopram (Citalopram Hydrobromide) 20 Mg Tab 20 Mg PO DAILY Oxycodone-Acetaminophen 5-325 mg Tab 1 Tab PO Q6H PRN Hamilton (Hydrocodone-Acetaminophen) 5-325 mg Tab 1 Tab PO Q6H PRN Allergies: Coded Allergies: No Known Allergies (Unverified , 12/08/16) Active Ordered Medications Current Medications Medications (Trade) Dose Ordered Sig/Corazon Route Start Time Stop Time Status Last Admin Midodrine 10 mg 10 mg TID@07,12,17 PO 12/09/16 07:00 (NS 1000 ml Inj) 1,000 ml @ 75 mls/hr [id number] IV 12/08/16 19:38 12/09/16 08:57 (NS Flush) 2 ml UNSCH PRN IV FLUSH 12/08/16 19:45 (NS Flush) 2 ml BID IV FLUSH 12/08/16 21:00 (Tylenol) 650 mg Q4H PRN PO 12/08/16 19:45 (Zofran Inj) 4 mg Q6H PRN IVP 12/08/16 19:45 (Colace) 100 mg Q12HR PO 12/08/16 21:00 (Narcan Inj) 0.4 mg UNSCH PRN IV 12/08/16 19:45 (Ecotrin Ec) 81 mg DAILY PO 12/09/16 09:00 (CeleXA) 20 mg DAILY PO 12/09/16 09:00 Patient Own Medication 300 ea TID PO 12/09/16 09:00 Future Hold Family History Patient has sisters with lung cancer Patient's mother and brother have Alzheimer's disease Patient's father had pancreatic cancer Social History Lives with handicap son has daughter who lives near by denies ETOH use, tobacco or illicit drug use Physical Exam Vital Signs Vital Signs Date Time Temp Pulse Resp B/P Pulse Ox O2 Delivery O2 Flow Rate FiO2 12/08/16 18:30 76 18 153/88 99 Room Air 12/08/16 17:17 98 Room Air 12/08/16 17:15 83/43 12/08/16 17:15 99/54 12/08/16 17:14 111/78 12/08/16 17:01 77 18 95 Room Air 12/08/16 16:35 97.8 86 12 95/54 99 Physical Exam GENERAL: This is a well-nourished, well-developed patient, in no apparent distress. SKIN: No rashes, ecchymoses or lesions. Cool and dry. Healing incision right posterior thorax. HEAD: Atraumatic. Normocephalic. No temporal or scalp tenderness. EYES: Extraocular motions intact. No scleral icterus. No injection or drainage. CARDIOVASCULAR: Regular rate and rhythm without murmurs, gallops, or rubs. RESPIRATORY: Clear to auscultation. Breath sounds equal bilaterally. No wheezes , rales, or rhonchi. GASTROINTESTINAL: Abdomen soft, non-tender, nondistended. No hepato-splenomegaly , or palpable masses. No guarding. MUSCULOSKELETAL: Extremities without clubbing, cyanosis, or edema. No joint tenderness, effusion, or edema noted. No calf tenderness. Negative Homans sign bilaterally. NEUROLOGICAL: Awake and alert. No focal deficits. Motor and sensory grossly within normal limits. 4-5 out of 5 muscle strength in all muscle groups. Normal speech. Laboratory Laboratory Tests Test 12/08/16 17:20 White Blood Count 6.4 Red Blood Count 4.56 Hemoglobin 14.1 Hematocrit 42.7 Mean Corpuscular Volume 93.7 Mean Corpuscular Hemoglobin 31.0 Mean Corpuscular Hemoglobin 33.1 Concent Red Cell Distribution Width 14.3 Platelet Count 146 Mean Platelet Volume 7.7 Neutrophils (%) (Auto) 59.0 Lymphocytes (%) (Auto) 23.7 Monocytes (%) (Auto) 12.1 Eosinophils (%) (Auto) 4.6 Basophils (%) (Auto) 0.6 Neutrophils # (Auto) 3.8 Lymphocytes # (Auto) 1.5 Monocytes # (Auto) 0.8 Eosinophils # (Auto) 0.3 Basophils # (Auto) 0.0 CBC Comment DIFF FINAL Differential Comment Prothrombin Time 10.4 Prothromb Time International 0.9 Ratio Activated Partial 24.4 Thromboplast Time Urine Color YELLOW Urine Turbidity HAZY Urine pH 5.5 Urine Specific Breeden 1.025 Urine Protein 100 Urine Glucose (UA) NEG Urine Ketones NEG Urine Occult Blood MOD Urine Nitrite NEG Urine Bilirubin NEG Urine Urobilinogen 2.0 Urine Leukocyte Esterase LARGE Urine RBC 134 Urine WBC 116 Urine Squamous Epithelial 3 Cells Urine Transitional Epithelial 1 Cells Urine Amorphous Sediment RARE Urine Bacteria FEW Urine Hyaline Casts 83 Urine Mucus MOD Microscopic Urinalysis Comment CULTURE INDICATED Sodium Level 139 Potassium Level 4.6 Chloride Level 105 Carbon Dioxide Level 26.3 Anion Gap 8 Blood Urea Nitrogen 29 Creatinine 1.55 Estimat Glomerular Filtration 43 Rate Random Glucose 149 Calcium Level 9.2 Magnesium Level 2.4 Total Bilirubin 0.4 Aspartate Amino Transf 15 (AST/SGOT) Alanine Aminotransferase 19 (ALT/SGPT) Alkaline Phosphatase 101 Total Creatine Kinase 44 Troponin I LESS THAN 0.02 Total Protein 6.7 Albumin 3.7 Thyroid Stimulating Hormone 1.220 3rd Gen Date/Time Procedure Status Source Growth 12/08/16 17:20 Urine Culture Received Urine Random Urine Pending Result Diagram: 12/08/16 1720 12/08/16 1720 Imaging Last Impressions Head CT 12/08/161713 Signed Impressions: Service Date/Time: Thursday, December 08, 2016 17:49 - CONCLUSION: 1. No acute hemorrhage or mass effect. 2. Old infarct in left thalamus. 3. Atrophy commensurate with age. Francesco Putnam MD Chest X-Ray 12/08/161713 Signed Impressions: Service Date/Time: Thursday, December 08, 2016 17:28 - CONCLUSION: Stable chest x-ray without acute finding identified. Bilateral pleural-based calcification remains present and suggestive of prior asbestos exposure. Yordy Braun MD Assessment and Plan Problem List: (1) Orthostatic hypotension ICD Code: I95.1 Status: Acute (2) Frequent falls ICD Code: R29.6 Status: Acute (3) Acute kidney injury ICD Code: N17.9 Status: Acute (4) UTI (urinary tract infection) ICD Code: N39.0 Status: Acute Assessment and Plan This a pleasant 81-year-old male patient with a past medical history which includes: Bladder and prostate cancer, orthostatic hypotension, CVA, macular degeneration and hard of hearing. Patient presents to the emergency department today with complaints of worsening symptomatic orthostatic hypotension over the past 5 days and multiple falls over the past 3 days. Patient has had incidents of systolic hypotension in the past that had been stable on a combination of Midodrine and Northera which is managed by his composite worker Dr. Loomis. Patient complains of dizziness which he describes as a full feeling in his head as well as well as flushed hot sensation on the top of his head before he falls. Patient reports this dizzy/lightheaded sensation both sitting and standing. Patient's daughter is at bedside believes these symptoms are exacerbated by his lack of appetite and dehydration. Symptomatic orthostatic hypotension with frequent falls and syncope Continue patient's home Northera and Midodrine Consult cardiology patient known to Dr. Loomis- defer adjustment of orthostatic hypotensive medications to Dr. Loomis Check EEG as patient does have loss of bladder control during these syncopal events Check ultrasound bilateral carotid arteries CT of the head reviewed and reveals: 1. No acute hemorrhage or mass effect. 2. Old infarct in left thalamus. 3. Atrophy commensurate with age Chest x-ray reviewed and reveals: Stable chest x-ray without acute finding identified. Bilateral pleural-based calcification remains present and suggestive of prior asbestos exposure. Check orthostatic vital signs Continuous telemetry monitoring Initial EKG reviewed and reveals sinus rhythm rate of 82 with PVCs UTI urinalysis reviewed and reveals large amount of leukocyte esterase Initiate Rocephin IV await culture results Acute kidney injury likely secondary to dehydration Avoid nephrotoxins Gentle IV hydration with normal saline at 75 cc/h Recheck BMP in a.m. Bladder CA managed per Dr. Mi recommend outpatient follow-up CVA hx Continue aspirin daily patient follows with Dr. Devi recommend outpatient follow-up DVT prophylaxis with WALTERs and Usman conley Discussed with ER provider, nursing, patient, family members at bedside and Lynnette Field December 08, 2016 21:04
[2016-12-08] MEDS ORDERED: cefTRIAXone INJ 1,000 MG in SODIUM CHLORIDE 0.9% INJ 100 ML IV SCH (22:00)
--- NOTE | 2016-12-08 22:37 | RADRPT ---
EXAM DATE/TIME: 12/08/2016 21:58 [facility] COMPARISON: No previous studies available for comparison. INDICATIONS : Syncope. MEDICAL HISTORY : Carcinoma, bladder. Carcinoma, prostate. Renal calculi. Bilateral mancular degeneration. CVA. Orthost atic hypotension. SURGICAL HISTORY : Appendectomy. Left ankle tendons. Bladder surgery. ENCOUNTER: Initial ACUITY: 1 day PAIN SCORE: 0/10 LOCATION: Bilateral neck PEAK SYSTOLIC VELOCITIES (cm/sec): ICA/CCA RATIO: Right: 0.7 Left: 0.9 ICA: Right: 65 Left: 89 CCA: Right: 98 Left: 96 ECA: Right: 92 Left: 80 VERTEBRAL: Right: 50 antegrade Left: 55 antegrade Elevated flow velocities and ICA/CCA ratios have been found to correlate with increased degrees of vessel stenosis, calculated as percentage of diameter relative to a normal segment of distal ICA/CCA FINDINGS: RIGHT CAROTID: Mild amount of plaque is present in the carotid bulb The waveforms are within normal limits. LEFT CAROTID: Mild plaque is present in the carotid bulb and proximal internal carotid artery. The waveforms are wi thin normal limits. VERTEBRAL ARTERIES: Antegrade flow is seen in both vertebral arteries. MISCELLANEOUS: None. CONCLUSION: Bilateral plaquing with no evidence of a hemodynamically significant lesion. Francesco Putnam MD on December 08, 2016 at 22:34 Board Certified Radiologist. This report was verified electronically.
[2016-12-09 00:14] VITALS: PULSE 83
[2016-12-09 05:05] VITALS: BP 139/73; PULSE 72; RESP 18; TEMP 98; O2SAT 92
[2016-12-09 05:39] LABS: AUTOMATED NEUTROPHIL # 2.1 TH/MM3 (1.8-7.7); BASOPHIL % 0.9 % (0.0-2.0); EOSINOPHIL # 0.3 TH/MM3 (0-0.4); EOSINOPHIL % 7.1 % (0.0-4.0); HEMATOCRIT 37.3 % (39.0-51.0); HEMO FLAGS DIFF FINAL; LYMPH % 34.6 % (9.0-44.0); LYMPHOCYTE # 1.6 TH/MM3 (1.0-4.8); MEAN CELL VOLUME 93.5 FL (80.0-100.0); MEAN CORPUSCULAR HEMOGLOBIN 30.5 PG (27.0-34.0); MEAN CORPUSCULAR HGB CONC 32.7 % (32.0-36.0); MONO % 13.1 % (0.0-8.0); NEUT % 44.3 % (16.0-70.0); PLATELET COUNT 122 TH/MM3 (150-450); RED BLOOD COUNT 3.98 MIL/MM3 (4.50-5.90); RED CELL DISTRIBUTION WIDTH 14.1 % (11.6-17.2); WHITE BLOOD COUNT 4.7 TH/MM3 (4.0-11.0)
[2016-12-09 06:08] LABS: BICARBONATE 27.3 MEQ/L (21.0-32.0); POTASSIUM 3.9 MEQ/L (3.5-5.1)
[2016-12-09] MEDS: MIDODRINE 5 MG TAB PO SCH ×2 (06:24→11:00)
[2016-12-09 08:00] VITALS: PULSE 80
[2016-12-09 09:00] VITALS: BP_SYST 108; BP_SYST 165; BP_SYST 195; BP_DIAS 66; BP_DIAS 77; BP_DIAS 90; PULSE 88; RESP 20; TEMP 98; O2SAT 95
[2016-12-09] MEDS ORDERED: CITALOPRAM HYDROBROMIDE 20 MG TAB PO SCH (09:00)
[2016-12-09] MEDS ORDERED: ASPIRIN EC 81 MG TABEC PO SCH (09:00)
[2016-12-09] MEDS ORDERED: DROXIDOPA PO SCH (09:00)
[2016-12-09] MEDS: SODIUM CHLORIDE 0.9% FLUSH 10 ML FLUSH IV FLUSH SCH (09:00)
[2016-12-09] MEDS ORDERED: MIDODRINE 5 MG TAB PO SCH (09:00)
[2016-12-09 09:36] VITALS: O2SAT 94
--- NOTE | 2016-12-09 09:49 | HHI.PR ---
Subjective Remarks Follow-up orthostatic hypotension and acute kidney injury. States he is feeling better asking when he can go home. Admits he needs to improve his oral and fluid intake. No recent medication changes. Discussed with RN, repeat orthostatics still positive but blood pressure standing within normal limits and patient asymptomatic. Hold IV fluids and repeat orthostatics at 12 noon Objective Vitals Vital Signs Date Time Temp Pulse Resp B/P Pulse Ox O2 Delivery O2 Flow Rate FiO2 12/09/16 09:36 94 12/09/16 09:00 98.0 88 20 195/90 95 165/77 108/66 12/09/16 05:05 98.0 72 18 139/73 92 12/09/16 00:14 83 12/08/16 21:35 97.8 66 18 187/86 97 12/08/16 20:00 98 12/08/16 18:30 76 18 153/88 99 Room Air 12/08/16 17:17 98 Room Air 12/08/16 17:15 83/43 12/08/16 17:15 99/54 12/08/16 17:14 111/78 12/08/16 17:01 77 18 95 Room Air 12/08/16 16:35 97.8 86 12 95/54 99 I/O 12/08/16 12/08/16 12/08/16 12/09/16 12/09/16 12/09/16 07:00 15:00 23:00 07:00 15:00 23:00 Intake Total 1280 ml Balance 1280 ml Intake Oral 480 ml IV Total 800 ml # Voids 4 Result Diagram: 12/09/16 0454 12/09/16 0454 Imaging Last Impressions Head CT 12/08/161713 Signed Impressions: Service Date/Time: Thursday, December 08, 2016 17:49 - CONCLUSION: 1. No acute hemorrhage or mass effect. 2. Old infarct in left thalamus. 3. Atrophy commensurate with age. Francesco Putnam MD Chest X-Ray 12/08/161713 Signed Impressions: Service Date/Time: Thursday, December 08, 2016 17:28 - CONCLUSION: Stable chest x-ray without acute finding identified. Bilateral pleural-based calcification remains present and suggestive of prior asbestos exposure. Yordy Braun MD Carotid Artery Ultrasound 12/08/16 0000 Signed Impressions: Service Date/Time: Thursday, December 08, 2016 21:58 - CONCLUSION: Bilateral plaquing with no evidence of a hemodynamically significant lesion. Francesco Putnam MD Objective Remarks GENERAL: This is a well-nourished, well-developed patient, in no apparent distress. SKIN: No rashes, ecchymoses or lesions. Cool and dry. Healing incision right posterior thorax. HEAD: Atraumatic. Normocephalic. No temporal or scalp tenderness. EYES: Extraocular motions intact. No scleral icterus. No injection or drainage. CARDIOVASCULAR: Regular rate and rhythm without murmurs, gallops, or rubs. RESPIRATORY: Clear to auscultation. Breath sounds equal bilaterally. No wheezes , rales, or rhonchi. GASTROINTESTINAL: Abdomen soft, non-tender, nondistended. No guarding. MUSCULOSKELETAL: Extremities without clubbing, cyanosis, or edema. No joint tenderness, effusion, or edema noted. No calf tenderness. Negative Homans sign bilaterally. NEUROLOGICAL: Awake and alert. No focal deficits. Motor and sensory grossly within normal limits. Normal speech. Procedures Non- A/P Problem List: (1) Orthostatic hypotension ICD Code: I95.1 Status: Acute (2) Frequent falls ICD Code: R29.6 Status: Acute (3) Acute kidney injury ICD Code: N17.9 Status: Acute (4) UTI (urinary tract infection) ICD Code: N39.0 Status: Acute Assessment and Plan This a pleasant 81-year-old male patient with a past medical history which includes: Bladder and prostate cancer, orthostatic hypotension, CVA, macular degeneration and hard of hearing. Patient presents to the emergency department today with complaints of worsening symptomatic orthostatic hypotension over the past 5 days and multiple falls over the past 3 days. Patient has had incidents of systolic hypotension in the past that had been stable on a combination of Midodrine and Northera which is managed by his product support specialist Dr. Loomis. Patient complains of dizziness which he describes as a full feeling in his head as well as well as flushed hot sensation on the top of his head before he falls. Patient reports this dizzy/lightheaded sensation both sitting and standing. Patient's daughter is at bedside believes these symptoms are exacerbated by his lack of appetite and dehydration. Symptomatic orthostatic hypotension with frequent falls and syncope. Improving repeat orthostatics still positive but standing blood pressure remained within normal limits with elevated supine blood pressure. Discontinue IV fluids for now Continue patient's home Northera and Midodrine. Family to bring home medications Consulted cardiology patient known to Dr. Loomis- defer adjustment of orthostatic hypotensive medications to Dr. Loomis Check EEG as patient does have loss of bladder control during these syncopal events Unremarkable ultrasound bilateral carotid arteries CT of the head reviewed and reveals: 1. No acute hemorrhage or mass effect. 2. Old infarct in left thalamus. 3. Atrophy commensurate with age Chest x-ray reviewed and reveals: Stable chest x-ray without acute finding identified. Bilateral pleural-based calcification remains present and suggestive of prior asbestos exposure. Check orthostatic vital signs Continuous telemetry monitoring Initial EKG reviewed and reveals sinus rhythm rate of 82 with PVCs Fall precautions UTI urinalysis reviewed and reveals large amount of leukocyte esterase We will continue Rocephin IV await culture results Acute kidney injury likely secondary to dehydration. Improving Avoid nephrotoxins Discontinue IV hydration Recheck BMP in a.m. Bladder CA managed per Dr. Mi recommend outpatient follow-up CVA hx Continue aspirin daily patient follows with Dr. Devi recommend outpatient follow-up DVT prophylaxis with SCDs and Usman conley Discharge Planning Possible discharge today or tomorrow Marek Engle MD December 09, 2016 09:49
[2016-12-09] MEDS: DOCUSATE SODIUM 100 MG CAP PO SCH (10:58)
[2016-12-09 12:18] VITALS: BP_SYST 134; BP_SYST 138; BP_SYST 182; BP_DIAS 78; BP_DIAS 79; BP_DIAS 87; PULSE 68; O2SAT 97
[2016-12-09] MEDS ORDERED: CEFU250T PO (13:36)
--- NOTE | 2016-12-09 19:06 | PD.CARD.PN ---
Subjective Subjective Remarks No CP or SOB, feels much better after hydration Objective Vital Signs / I&O Vital Signs Date Time Temp Pulse Resp B/P Pulse Ox O2 Delivery O2 Flow Rate FiO2 12/09/16 12:18 68 182/87 97 138/78 134/79 12/09/16 09:36 94 12/09/16 09:00 98.0 88 20 195/90 95 165/77 108/66 12/09/16 08:00 80 12/09/16 05:05 98.0 72 18 139/73 92 12/09/16 00:14 83 12/08/16 21:35 97.8 66 18 187/86 97 12/08/16 20:00 98 I/O 12/08/16 12/08/16 12/08/16 12/09/16 12/09/16 12/09/16 07:00 15:00 23:00 07:00 15:00 23:00 Intake Total 1280 ml Balance 1280 ml Intake Oral 480 ml IV Total 800 ml # Voids 4 Physical Exam GENERAL: In NAD SKIN: Warm and dry. HEAD: Normocephalic. EYES: No scleral icterus. No injection or drainage. NECK: Supple, trachea midline. No JVD or lymphadenopathy. CARDIOVASCULAR: Regular rate and rhythm without murmurs, gallops, or rubs. RESPIRATORY: Breath sounds equal bilaterally. No accessory muscle use. GASTROINTESTINAL: Abdomen soft, non-tender, nondistended. MUSCULOSKELETAL: No cyanosis, or edema. Laboratory Laboratory Tests Test 12/09/16 04:54 White Blood Count 4.7 TH/MM3 Red Blood Count 3.98 MIL/MM3 Hemoglobin 12.2 GM/DL Hematocrit 37.3 % Mean Corpuscular Volume 93.5 FL Mean Corpuscular Hemoglobin 30.5 PG Mean Corpuscular Hemoglobin 32.7 % Concent Red Cell Distribution Width 14.1 % Platelet Count 122 TH/MM3 Mean Platelet Volume 7.7 FL Neutrophils (%) (Auto) 44.3 % Lymphocytes (%) (Auto) 34.6 % Monocytes (%) (Auto) 13.1 % Eosinophils (%) (Auto) 7.1 % Basophils (%) (Auto) 0.9 % Neutrophils # (Auto) 2.1 TH/MM3 Lymphocytes # (Auto) 1.6 TH/MM3 Monocytes # (Auto) 0.6 TH/MM3 Eosinophils # (Auto) 0.3 TH/MM3 Basophils # (Auto) 0.0 TH/MM3 CBC Comment DIFF FINAL Differential Comment Sodium Level 143 MEQ/L Potassium Level 3.9 MEQ/L Chloride Level 109 MEQ/L Carbon Dioxide Level 27.3 MEQ/L Anion Gap 7 MEQ/L Blood Urea Nitrogen 21 MG/DL Creatinine 1.07 MG/DL Estimat Glomerular Filtration 66 ML/MIN Rate Random Glucose 109 MG/DL Calcium Level 8.5 MG/DL Imaging Last Impressions Head CT 12/08/161713 Signed Impressions: Service Date/Time: Thursday, December 08, 2016 17:49 - CONCLUSION: 1. No acute hemorrhage or mass effect. 2. Old infarct in left thalamus. 3. Atrophy commensurate with age. Francesco Putnam MD Chest X-Ray 12/08/161713 Signed Impressions: Service Date/Time: Thursday, December 08, 2016 17:28 - CONCLUSION: Stable chest x-ray without acute finding identified. Bilateral pleural-based calcification remains present and suggestive of prior asbestos exposure. Yordy Braun MD Carotid Artery Ultrasound 12/08/16 0000 Signed Impressions: Service Date/Time: Thursday, December 08, 2016 21:58 - CONCLUSION: Bilateral plaquing with no evidence of a hemodynamically significant lesion. Francesco Putnam MD Assessment and Plan Problem List: (1) Orthostatic hypotension (2) Frequent falls (3) Syncope (4) CVA (cerebral vascular accident) (5) Acute kidney injury Assessment and Plan Overall improved after hydration. Continue Midodrine and Northera. Discharge home. Will schedule outpatient f/u. Problem Qualifiers (1) Syncope: Qualified Code: R55 - Syncope, unspecified syncope type Phan Loomis MD December 09, 2016 19:06
--- NOTE | 2016-12-10 16:25 | MG ---
cc: OPAL PHAN M.D. Lab No: [id number] Date: Age: Sex: M Race: Hyperventilation not performed. Syncope, orthostatic hypotension. MEDICATIONS: Ceftriaxone. Midodrine. Aspirin. DESCRIPTION OF THE RECORDING: An 8 Hz 60 microvolt posterior rhythm is seen. The recording overall is synchronous and symmetric. Hyperventilation was not performed. Photic stimulation was performed without significant posterior driving. No hemisphere asymmetries are noted. No epileptiform or seizure activity is seen. Occasional diffuse 7 Hz slowing is noted. IMPRESSION: Minimal diffuse theta slowing, otherwise a normal EEG. No focal abnormalities were noted. No seizure activity was seen. MD MAXWELL Cash/TEVIN /3:14 PM /4:24 PM
== END 2016-12-09 14:54 | disposition home or self-care (01) ==
LOC: NEPE 16:32 → NEDA 19:09 → NEPFCDU 21:22
PROVIDERS: ADMIT Internal Medicine; ATTEND Internal Medicine
DX: I95.1 Orthostatic hypotension (principal); N17.9 Acute kidney failure, unspecified; N39.0 Urinary tract infection, site not specified; I10 Essential (primary) hypertension; C67.9 Malignant neoplasm of bladder, unspecified; R29.6 Repeated falls; C61 Malignant neoplasm of prostate; Z86.73 Personal history of transient ischemic attack (TIA), and cerebral infarction without residual deficits; Z79.82 Long term (current) use of aspirin
CPT/HCPCS: 70450; 71010; 80048; 80053; 81001; 82550; 83735; 84443; 84484; 85025; 85610; 85730; 87086; 93005; 93880; 95819; 96360; 97162; 99285; G0378; G8987; G8988; J0696; J7030

== ENCOUNTER 2016-12-16 11:47 | Observation (INO) | payer MEDICARE ==
[~2016-12-16] VITALS: Ht 182.9 cm; Wt 87.0 kg
[2016-12-16] VITALS (8 sets, daily range): BP systolic 83–168; BP diastolic 51–89; PULSE 66–78; RESP 14–20; TEMP 97.8–98; O2SAT 94–100
[~2016-12-16 11:47] MED LIST changes: +CEFU250T PO; -CIPR-9 PO; -OXYC1TAB63 PO; -PRESCAP5 PO; -WALKER WHEELS/F1 MIS; -[UNRECOGNIZED DRUG - CODE]
--- NOTE | 2016-12-16 11:58 | PD ---
Physical Exam Time Seen by Provider: 11:53 Narrative 81yo M c/o syncopal episode last night. This has been happening for years. Says he has orthostatic hypotension. C/o of chest pain for "awhile." Denies SOB. Patient seen in triage. VS reviewed. Awaiting bed placement. Data Data Last Documented VS Vital Signs Date Time Temp Pulse Resp B/P Pulse Ox O2 Delivery O2 Flow Rate FiO2 12/16/16 11:50 97.8 66 20 97/52 94 Room Air [facility] Supervised Visit with EMERALD: Kyra Arizmendi December 16, 2016 11:58
--- NOTE | 2016-12-16 12:56 | RADRPT ---
EXAM DATE/TIME: 12/16/2016 12:45 [place] COMPARISON: CHEST SINGLE AP, December 08, 2016, 17:28. INDICATIONS : Chest pain. MEDICAL HISTORY : Hypertension. Carcinoma, prostatic. Carcinoma, bladder. CVA. SURGICAL HISTORY : Appendectomy. ENCOUNTER: Initial ACUITY: 1 month PAIN SCORE: 8/10 LOCATION: Bilateral chest FINDINGS: Single AP view of the chest. Pleural calcifications bilaterally again seen. Lungs are otherwise clear . No evidence of pleural effusion or pneumothorax. Cardiomediastinal silhouette within normal limits. Moderate degenerative findings of the thoracic spine again seen. CONCLUSION: No acute cardiopulmonary disease identified. Daniel Champion MD on December 16, 2016 at 12:52 Board Certified Radiologist. This report was verified electronically.
[2016-12-16] MEDS ORDERED: SODIUM CHLORID 0.9% 500 ML INJ 500 ML IV ONE (13:00)
[2016-12-16 13:08] LABS: AUTOMATED NEUTROPHIL # 2.6 TH/MM3 (1.8-7.7); BASOPHIL % 0.7 % (0.0-2.0); EOSINOPHIL # 0.2 TH/MM3 (0-0.4); HEMATOCRIT 44.3 % (39.0-51.0); HEMO FLAGS DIFF FINAL; LYMPH % 28.3 % (9.0-44.0); LYMPHOCYTE # 1.4 TH/MM3 (1.0-4.8); MEAN CELL VOLUME 95.1 FL (80.0-100.0); MEAN CORPUSCULAR HEMOGLOBIN 30.7 PG (27.0-34.0); MEAN CORPUSCULAR HGB CONC 32.2 % (32.0-36.0); MONO % 13.4 % (0.0-8.0); NEUT % 52.6 % (16.0-70.0); PLATELET COUNT 132 TH/MM3 (150-450); RED BLOOD COUNT 4.66 MIL/MM3 (4.50-5.90); RED CELL DISTRIBUTION WIDTH 14.2 % (11.6-17.2)
[2016-12-16 13:17] LABS: APTT (PATIENT) 24.5 SEC (24.3-30.1); INTERNATIONAL NORMALIZED RATIO 0.9 RATIO; PROTHROMBIN TIME - PATIENT 10.3 SEC (9.8-11.6)
[2016-12-16] MEDS ORDERED: REFR0.5D4 EACH EYE (13:22)
[2016-12-16 13:27] LABS: ANION GAP 6 MEQ/L (5-15); AST (GOT) 14 U/L (15-37); BICARBONATE 28.9 MEQ/L (21.0-32.0); BLOOD UREA NITROGEN 15 MG/DL (7-18); CHLORIDE 101 MEQ/L (98-107); GLOMERULAR FILTRATION RATE 63 ML/MIN (>89); MAGNESIUM 2.5 MG/DL (1.5-2.5); POTASSIUM 4.1 MEQ/L (3.5-5.1); SODIUM (NA) 136 MEQ/L (136-145)
[2016-12-16 13:28] LABS: ALT (GPT) 18 U/L (12-78)
[2016-12-16 13:31] LABS: ALKALINE PHOSPHATASE 95 U/L (45-117); TOTAL BILIRUBIN ADULT 0.7 MG/DL (0.2-1.0)
[2016-12-16 13:35] LABS: CREATINE KINASE 44 U/L (39-308)
[2016-12-16 14:19] LABS: BLOOD, URINE NEG (NEG); COMMENT (UR) CULTURE INDICATED; CULTURE IF INDICATED CULTURE INDICATED; GLUCOSE,URINE NEG (NEG); KETONE, URINE NEG (NEG); MUCUS URINE FEW /lpf (OCC); NITRITE,URINE NEG (NEG); URINE COLOR YELLOW (YELLW/STRAW)
--- NOTE | 2016-12-16 14:25 | PD ---
HPI Chief Complaint: Syncope/Near-Syncope Time Seen by Provider: 12:29 Travel History International Travel<30 days: No Contact w/Intl Traveler<30days: No Traveled to known affect area: No History of Present Illness HPI Patient is an 81-year-old male with history of bladder and prostate cancer, orthostatic hypotension, CVA, macular degeneration who is brought to emergency room by his daughter/ POA for evaluation of syncope. Patient reports that he had a drop attack yesterday, reports that he collapsed on the floor and doesn't remember what happened. Patient's daughter reports the patient was just discharged for orthostatic hypotension with syncope. Reports that he is being treated by Dr. Loomis and is taking Northera 100mg as well as Midrodine 10mg for his hypotension. Reports that this does not seem to help him that much as he is still symptomatic. patient reports that he has also been complaining of chest pain today. Patient cannot describe this chest pain or describe how long it lasts, reports that chest pain has been intermittent in nature, reports that he currently does not have any chest pain. PFSH Past Medical History Arthritis: No Asthma: No Anxiety: No Depression: No Heart Rhythm Problems: No Cancer: Yes (bladder cancer AND PROSTATE CA ) Cardiovascular Problems: Yes (HYPOTENSION) High Cholesterol: No Chemotherapy: No Chest Pain: No Congestive Heart Failure: No COPD: No Cerebrovascular Accident: Yes Diminished Hearing: No Endocrine: No GERD: No Genitourinary: Yes (bladder ca) Headaches: Yes Hiatal Hernia: No Immune Disorder: No Kidney Stones: Yes Musculoskeletal: No Neurologic: Yes Psychiatric: No Reproductive: No Respiratory: No Migraines: No Radiation Therapy: No Renal Failure: No Seizures: No Sleep Apnea: No Ulcer: No Influenza Vaccination: Yes ?: Not Past Surgical History Abdominal Surgery: Yes (APPENDEX) AICD: No Appendectomy: Yes Arteriovenous Shunt: No Cardiac Surgery: No Ear Surgery: Yes Genitourinary Surgery: Yes Gynecologic Surgery: No Insulin Pump: No Joint Replacement: No Oral Surgery: No Pacemaker: No Thoracic Surgery: No Other Surgery: Yes (bladder surgery) Social History Alcohol Use: No Tobacco Use: No Substance Use: No Allergies-Medications (Allergen,Severity, Reaction): Coded Allergies: No Known Allergies (Unverified , 12/16/16) Reported Meds & Prescriptions Reported Meds & Active Scripts Active Cefuroxime (Cefuroxime Axetil) 250 Mg Tab 250 Mg PO BID Northera (Droxidopa) 100 Mg Cap 300 Tab PO TID 30 Days Aspirin EC (Aspirin) 81 Mg Tabdr 81 Mg PO DAILY Reported Refresh Tears Opth Drops (Carboxymethylcellulose Sodium Opth Drops) 0.5% Drops 1 Drop EACH EYE DAILY PRN Fluticasone Nasal [place] 50 Mcg/Act Naspr 1 [place] EACH NARE DAILY PRN 50 mcg/spray Cetirizine (Cetirizine HCl) 10 Mg Tab 10 Mg PO DAILY Tamsulosin (Tamsulosin HCl) 0.4 Mg Cap 0.4 Mg PO HS Midodrine 10 Mg Tab 10 Mg PO TID Citalopram (Citalopram Hydrobromide) 20 Mg Tab 20 Mg PO DAILY [place] (Hydrocodone-Acetaminophen) 5-325 mg Tab 1 Tab PO Q6H PRN Review of Systems General / Constitutional: No: Fever Eyes: No: Visual changes HENT: No: Headaches Cardiovascular: Positive: Chest Pain or Discomfort, Syncope Respiratory: No: Shortness of Breath Gastrointestinal: No: Abdominal Pain Genitourinary: No: Dysuria Musculoskeletal: No: Pain Skin: No Rash Neurologic: Positive: Weakness, Syncope Psychiatric: No: Depression Endocrine: No: Polydipsia Hematologic/Lymphatic: No: Easy Bruising Physical Exam Narrative GENERAL: nad SKIN: Focused skin assessment warm/dry. HEAD: Atraumatic. Normocephalic. EYES: Pupils equal and round. No scleral icterus. No injection or drainage. ENT: No nasal bleeding or discharge. Mucous membranes pink and moist. NECK: Trachea midline. No JVD. CARDIOVASCULAR: Regular rate and rhythm. No murmur appreciated. RESPIRATORY: No accessory muscle use. Clear to auscultation. Breath sounds equal bilaterally. GASTROINTESTINAL: Abdomen soft, non-tender, nondistended. Hepatic and splenic margins not palpable. MUSCULOSKELETAL: No obvious deformities. No clubbing. No cyanosis. No edema. NEUROLOGICAL: Awake and alert. No obvious cranial nerve deficits. Motor grossly within normal limits. Normal speech. PSYCHIATRIC: Appropriate mood and affect; insight and judgment normal. Data Data Last Documented VS Vital Signs Date Time Temp Pulse Resp B/P Pulse Ox O2 Delivery O2 Flow Rate FiO2 12/16/16 13:55 67 14 132/84 73 14 119/80 83/51 12/16/16 13:54 98 Room Air 12/16/16 13:01 2 12/16/16 11:50 97.8 Orders Electrocardiogram (12/16/16 ) Ckmb (Isoenzyme) Profile (12/16/16 12:13) Complete Blood Count With Diff (12/16/16 12:13) Comprehensive Metabolic Panel (12/16/16 12:13) Magnesium (Mg) (12/16/16 12:13) Prothrombin Time / Inr (Pt) (12/16/16 12:13) Act Partial Throm Time (Ptt) (12/16/16 12:13) Troponin I (12/16/16 12:13) Chest, Single Ap (12/16/16 12:13) Orthostatic Vital Signs (12/16/16 12:55) Urinalysis - C+S If Indicated (12/16/16 12:55) Iv Access Insert/Monitor (12/16/16 12:55) Ecg Monitoring (12/16/16 12:55) Oximetry (12/16/16 12:55) Sodium Chlorid 0.9% 500 Ml Inj (Ns 500 M (12/16/16 13:00) Urine Culture (12/16/16 14:04) Ceftriaxone Inj (Rocephin Inj) (12/16/16 14:30) Place In Observation (12/16/16 ) Vital Signs (Adult) Q4H (12/16/16 14:35) Activity Oob With Assistance (12/16/16 14:35) Presetter Operator / Telemetry .CONTINUOUS (12/16/16 14:35) Diet Regular Basic (12/16/16 Dinner) Sodium Chlor 0.9% 1000 Ml Inj (Ns 1000 M (12/16/16 15:00) Sodium Chloride 0.9% Flush (Ns Flush) (12/16/16 14:45) Sodium Chloride 0.9% Flush (Ns Flush) (12/16/16 21:00) Acetaminophen (Tylenol) (12/16/16 14:45) Ondansetron Inj (Zofran Inj) (12/16/16 14:45) Scd Bilateral/Knee High STEFANIA.BID (12/16/16 14:35) Naloxone Inj (Narcan Inj) (12/16/16 14:45) Docusate Sodium-Senna (Neena-Colace) (12/16/16 21:00) Magnesium Hydroxide Liq (Milk Of Magnesi (12/16/16 14:45) Sennosides (Senokot) (12/16/16 14:45) Bisacodyl Supp (Dulcolax Supp) (12/16/16 14:45) Lactulose Liq (Lactulose Liq) (12/16/16 14:45) Usman Bilateral/Knee High STEFANIA.QSHIFT (12/16/16 14:35) Consult Cardiology (12/16/16 ) Admit Order (Ed Use Only) (12/16/16 14:38) Oxycodone-Acetamin 5-325 Mg (Percocet (12/16/16 14:45) Labs Laboratory Tests Test 12/16/16 12/16/16 12:50 14:04 White Blood Count 5.0 TH/MM3 Red Blood Count 4.66 MIL/MM3 Hemoglobin 14.3 GM/DL Hematocrit 44.3 % Mean Corpuscular Volume 95.1 FL Mean Corpuscular Hemoglobin 30.7 PG Mean Corpuscular Hemoglobin 32.2 % Concent Red Cell Distribution Width 14.2 % Platelet Count 132 TH/MM3 Mean Platelet Volume 8.2 FL Neutrophils (%) (Auto) 52.6 % Lymphocytes (%) (Auto) 28.3 % Monocytes (%) (Auto) 13.4 % Eosinophils (%) (Auto) 5.0 % Basophils (%) (Auto) 0.7 % Neutrophils # (Auto) 2.6 TH/MM3 Lymphocytes # (Auto) 1.4 TH/MM3 Monocytes # (Auto) 0.7 TH/MM3 Eosinophils # (Auto) 0.2 TH/MM3 Basophils # (Auto) 0.0 TH/MM3 CBC Comment DIFF FINAL Differential Comment Prothrombin Time 10.3 SEC Prothromb Time International 0.9 RATIO Ratio Activated Partial 24.5 SEC Thromboplast Time Sodium Level 136 MEQ/L Potassium Level 4.1 MEQ/L Chloride Level 101 MEQ/L Carbon Dioxide Level 28.9 MEQ/L Anion Gap 6 MEQ/L Blood Urea Nitrogen 15 MG/DL Creatinine 1.12 MG/DL Estimat Glomerular Filtration 63 ML/MIN Rate Random Glucose 99 MG/DL Calcium Level 8.9 MG/DL Magnesium Level 2.5 MG/DL Total Bilirubin 0.7 MG/DL Aspartate Amino Transf 14 U/L (AST/SGOT) Alanine Aminotransferase 18 U/L (ALT/SGPT) Alkaline Phosphatase 95 U/L Total Creatine Kinase 44 U/L Troponin I LESS THAN 0.02 NG/ML Total Protein 6.5 GM/DL Albumin 3.5 GM/DL Urine Color YELLOW Urine Turbidity CLEAR Urine pH 6.0 Urine Specific [place] 1.006 Urine Protein NEG mg/dL Urine Glucose (UA) NEG mg/dL Urine Ketones NEG mg/dL Urine Occult Blood NEG Urine Nitrite NEG Urine Bilirubin NEG Urine Urobilinogen LESS THAN 2.0 MG/DL Urine Leukocyte Esterase MOD Urine RBC LESS THAN 1 /hpf Urine WBC 16 /hpf Urine Mucus FEW /lpf Microscopic Urinalysis Comment CULTURE INDICATED MDM Medical Decision Making Medical Screen Exam Complete: Yes Emergency Medical Condition: Yes Interpretation(s) ekg at 1205: NSR at 69bpm, qt/qtc: 372/391, nonspecific t wave changes Vital Signs Date Time Temp Pulse Resp B/P Pulse Ox O2 Delivery O2 Flow Rate FiO2 12/16/16 13:55 67 14 132/84 73 14 119/80 83/51 12/16/16 13:54 67 14 132/84 98 Room Air 12/16/16 13:01 66 18 145/70 100 Nasal Cannula 2 12/16/16 12:30 78 16 98/56 95 Room Air 12/16/16 11:50 97.8 66 20 97/52 94 Room Air Laboratory Tests Test 12/16/16 12:50 White Blood Count 5.0 TH/MM3 (4.0-11.0) Red Blood Count 4.66 MIL/MM3 (4.50-5.90) Hemoglobin 14.3 GM/DL (13.0-17.0) Hematocrit 44.3 % (39.0-51.0) Mean Corpuscular Volume 95.1 FL (80.0-100.0) Mean Corpuscular Hemoglobin 30.7 PG (27.0-34.0) Mean Corpuscular Hemoglobin 32.2 % Concent (32.0-36.0) Red Cell Distribution Width 14.2 % (11.6-17.2) Platelet Count 132 TH/MM3 (150-450) Mean Platelet Volume 8.2 FL (7.0-11.0) Neutrophils (%) (Auto) 52.6 % (16.0-70.0) Lymphocytes (%) (Auto) 28.3 % (9.0-44.0) Monocytes (%) (Auto) 13.4 % (0.0-8.0) Eosinophils (%) (Auto) 5.0 % (0.0-4.0) Basophils (%) (Auto) 0.7 % (0.0-2.0) Neutrophils # (Auto) 2.6 TH/MM3 (1.8-7.7) Lymphocytes # (Auto) 1.4 TH/MM3 (1.0-4.8) Monocytes # (Auto) 0.7 TH/MM3 (0-0.9) Eosinophils # (Auto) 0.2 TH/MM3 (0-0.4) Basophils # (Auto) 0.0 TH/MM3 (0-0.2) CBC Comment DIFF FINAL Differential Comment Prothrombin Time 10.3 SEC (9.8-11.6) Prothromb Time International 0.9 RATIO Ratio Activated Partial 24.5 SEC Thromboplast Time (24.3-30.1) Sodium Level 136 MEQ/L (136-145) Potassium Level 4.1 MEQ/L (3.5-5.1) Chloride Level 101 MEQ/L (98-107) Carbon Dioxide Level 28.9 MEQ/L (21.0-32.0) Anion Gap 6 MEQ/L (5-15) Blood Urea Nitrogen 15 MG/DL (7-18) Creatinine 1.12 MG/DL (0.60-1.30) Estimat Glomerular Filtration 63 ML/MIN (>89) Rate Random Glucose 99 MG/DL (74-106) Calcium Level 8.9 MG/DL (8.5-10.1) Magnesium Level 2.5 MG/DL (1.5-2.5) Total Bilirubin 0.7 MG/DL (0.2-1.0) Aspartate Amino Transf 14 U/L (15-37) (AST/SGOT) Alanine Aminotransferase 18 U/L (12-78) (ALT/SGPT) Alkaline Phosphatase 95 U/L (45-117) Total Creatine Kinase 44 U/L (39-308) Troponin I LESS THAN 0.02 NG/ML (0.02-0.05) Total Protein 6.5 GM/DL (6.4-8.2) Albumin 3.5 GM/DL (3.4-5.0) Last Impressions Chest X-Ray 12/16/16 1213 Signed Impressions: Service Date/Time: Wednesday, December 16, 2016 12:45 - CONCLUSION: No acute cardiopulmonary disease identified. Daniel Champion MD Differential Diagnosis Orthostatic hypotension, arrhythmia, electrolyte abnormality, UTI, dehydration, ACS Narrative Course 81-year-old male who presents to emergency room with complaints of syncopal episode. he has been having multiple syncopal episodes at the past 2 years, being treated for orthostatic hypotension by Dr. Loomis. patient was recently discharged from hospital on December 10 for treatment evaluation of orthostatic hypotension, daughter reports the patient had a syncopal episode last night. Patient now reports that he has been having intermittent chest pain which is new to him. Patient was worked up for syncope. Patient is orthostatic positive, he was given 1 L of IV fluids Call made to Dr. Loomis to review case Will obs to medicine service Case reviewed with Dr Morelos who accepts pt to service Case reviewed with Dr. Larry, requests compression stocking, will see patient in consult Diagnosis Primary Impression: Syncope Additional Impressions: Orthostatic hypotension Chest pain UTI (urinary tract infection) Admitting Information Admitting Physician Requests: Observation Carri Hanson DO December 16, 2016 14:25
[2016-12-16] MEDS ORDERED: cefTRIAXone INJ 1,000 MG in SODIUM CHLORIDE 0.9% INJ 100 ML IV ONE (14:30)
[2016-12-16] MEDS ORDERED: ACETAMINOPHEN 325 MG TAB PO PRN (14:45)
[2016-12-16] MEDS ORDERED: oxyCODONE/ACETAMINOPHEN 5 MG/325 MG TAB PO ONE (14:45)
[2016-12-16] MEDS ORDERED: LACTULOSE SYRUP 20 GM/30 ML CUP PO PRN (14:45)
[2016-12-16] MEDS ORDERED: SENNOSIDES 8.6 MG TAB PO PRN (14:45)
[2016-12-16] MEDS ORDERED: MAGNESIUM HYDROXIDE SUSP 30 ML CUP PO PRN (14:45)
[2016-12-16] MEDS ORDERED: NALOXONE HCL 0.4 MG/ML AMP IV PRN (14:45)
[2016-12-16] MEDS ORDERED: ONDANSETRON HCL 4 MG/2 ML VIAL IVP PRN (14:45)
[2016-12-16] MEDS ORDERED: SODIUM CHLORIDE 0.9% FLUSH 10 ML FLUSH IV FLUSH PRN (14:45)
[2016-12-16] MEDS ORDERED: BISACODYL 10 MG SUPP RECTAL PRN (14:45)
[2016-12-16] MEDS: SODIUM CHLOR 0.9% 1000 ML INJ 1,000 ML IV SCH (15:19)
--- NOTE | 2016-12-16 15:33 | HHI.HP ---
[facility] Service [facility] Primary Care Physician Nesha Coronado MD Admission Diagnosis Orthostatic hypotension Diagnoses: Chief Complaint: Syncope Travel History International Travel<30 Days: No Contact w/Intl Traveler <30 Da: No Traveled to Known Affected Are: No History of Present Illness Mr. Messina is a pleasant 81-year-old male with a history of bladder and prostate cancer, orthostatic hypotension who presents to the emergency department on 12/16/2016 due to an episode of syncope this morning. Patient has a bedside commode. He got up from bed and as he tried to use the commode he fell on the floor and passed out. He reports feeling somewhat foggy , lightheadedness but denies any chest pain, shortness of breath, nausea or vomiting or diaphoresis. Family member at bedside reports that sometimes even when patient is sitting in bed or sitting in his chair, sometimes he has fixed stare. Patient was recently hospitalized for orthostatic hypotension as well as syncope. He was started on midodrine as well as Droxidopa. Despite these medications, family members report that his blood pressure sometimes drops down to 80s over 40s. He often has orthostatic blood pressure at home. Patient follows up with Dr. Loomis (Cardiology) as well as Dr. Devi (neurology). Patient denies any changes in bowel habits. He does have frequent urination and burning sensation. Review of Systems Except as stated in HPI: all other systems reviewed are Neg Past Family Social History Past Medical History Orthostatic hypotension Bladder and prostate cancer Past Surgical History Appendectomy, right leg lesion removal, bladder/prostate cancer surgery Reported Medications Cefuroxime (Cefuroxime Axetil) 250 Mg Tab 250 Mg PO BID Northera (Droxidopa) 100 Mg Cap 300 Tab PO TID 30 Days Aspirin EC (Aspirin) 81 Mg Tabdr 81 Mg PO DAILY Reported Refresh Tears Opth Drops (Carboxymethylcellulose Sodium Opth Drops) 0.5% Drops 1 Drop EACH EYE DAILY PRN Fluticasone Nasal [place] 50 Mcg/Act Naspr 1 [place] EACH NARE DAILY PRN 50 mcg/spray Cetirizine (Cetirizine HCl) 10 Mg Tab 10 Mg PO DAILY Tamsulosin (Tamsulosin HCl) 0.4 Mg Cap 0.4 Mg PO HS Midodrine 10 Mg Tab 10 Mg PO TID Citalopram (Citalopram Hydrobromide) 20 Mg Tab 20 Mg PO DAILY [place] (Hydrocodone-Acetaminophen) 5-325 mg Tab 1 Tab PO Q6H PRN Allergies: Coded Allergies: No Known Allergies (Unverified , 12/16/16) Family History Mother had Alzheimer's disease. Social History Denies using tobacco, alcohol or illicit drugs. Physical Exam Vital Signs Vital Signs Date Time Temp Pulse Resp B/P Pulse Ox O2 Delivery O2 Flow Rate FiO2 12/16/16 13:55 67 14 132/84 73 14 119/80 83/51 12/16/16 13:54 67 14 132/84 98 Room Air 12/16/16 13:01 66 18 145/70 100 Nasal Cannula 2 12/16/16 12:30 78 16 98/56 95 Room Air 12/16/16 11:50 97.8 66 20 97/52 94 Room Air Physical Exam GENERAL: This is a well-nourished, well-developed patient, in no apparent distress. SKIN: No rashes, ecchymoses or lesions. Warm and dry. HEAD: Atraumatic. Normocephalic. No temporal or scalp tenderness. EYES: Pupils equal round and reactive. No injection or drainage. ENT: Nose without bleeding, purulent drainage or septal hematoma. Airway patent. NECK: Trachea midline. No lymphadenopathy. Supple, nontender, no meningeal signs. CARDIOVASCULAR: Regular rate and rhythm without murmurs, gallops, or rubs. No JVD. RESPIRATORY: Clear to auscultation. Breath sounds equal bilaterally. No wheezes , rales, or rhonchi. GASTROINTESTINAL: Abdomen soft, non-tender, nondistended. No guarding. MUSCULOSKELETAL: Extremities without clubbing, cyanosis, or edema. NEUROLOGICAL: Awake and alert. Cranial nerves II through XII intact. No focal neurological deficits. Normal speech. Laboratory Laboratory Tests Test 12/16/16 12/16/16 12:50 14:04 White Blood Count 5.0 Red Blood Count 4.66 Hemoglobin 14.3 Hematocrit 44.3 Mean Corpuscular Volume 95.1 Mean Corpuscular Hemoglobin 30.7 Mean Corpuscular Hemoglobin 32.2 Concent Red Cell Distribution Width 14.2 Platelet Count 132 Mean Platelet Volume 8.2 Neutrophils (%) (Auto) 52.6 Lymphocytes (%) (Auto) 28.3 Monocytes (%) (Auto) 13.4 Eosinophils (%) (Auto) 5.0 Basophils (%) (Auto) 0.7 Neutrophils # (Auto) 2.6 Lymphocytes # (Auto) 1.4 Monocytes # (Auto) 0.7 Eosinophils # (Auto) 0.2 Basophils # (Auto) 0.0 CBC Comment DIFF FINAL Differential Comment Prothrombin Time 10.3 Prothromb Time International 0.9 Ratio Activated Partial 24.5 Thromboplast Time Sodium Level 136 Potassium Level 4.1 Chloride Level 101 Carbon Dioxide Level 28.9 Anion Gap 6 Blood Urea Nitrogen 15 Creatinine 1.12 Estimat Glomerular Filtration 63 Rate Random Glucose 99 Calcium Level 8.9 Magnesium Level 2.5 Total Bilirubin 0.7 Aspartate Amino Transf 14 (AST/SGOT) Alanine Aminotransferase 18 (ALT/SGPT) Alkaline Phosphatase 95 Total Creatine Kinase 44 Troponin I LESS THAN 0.02 Total Protein 6.5 Albumin 3.5 Urine Color YELLOW Urine Turbidity CLEAR Urine pH 6.0 Urine Specific [place] 1.006 Urine Protein NEG Urine Glucose (UA) NEG Urine Ketones NEG Urine Occult Blood NEG Urine Nitrite NEG Urine Bilirubin NEG Urine Urobilinogen LESS THAN 2.0 Urine Leukocyte Esterase MOD Urine RBC LESS THAN 1 Urine WBC 16 Urine Mucus FEW Microscopic Urinalysis Comment CULTURE INDICATED Date/Time Procedure Status Source Growth 12/16/16 14:04 Urine Culture Received Urine Clean Catch Pending Result Diagram: 12/16/16 1250 12/16/16 1250 Imaging Last Impressions Chest X-Ray 12/16/16 1213 Signed Impressions: Service Date/Time: Friday, December 16, 2016 12:45 - CONCLUSION: No acute cardiopulmonary disease identified. Daniel Champion MD Assessment and Plan Problem List: (1) Syncope ICD Code: R55 Status: Acute (2) Orthostatic hypotension ICD Code: I95.1 Status: Acute (3) UTI (urinary tract infection) ICD Code: N39.0 Status: Acute Assessment and Plan Mr. Messina is a pleasant 81-year-old male with a history of bladder , prostate cancer, orthostatic hypotension who presents to the emergency department on 12/16/2016 after a syncopal episode in the morning. Patient reports frequent episodes of orthostatic hypotension. He also reports frequent urination and dysuria. - Syncope - Orthostatic hypotension - Patient's syncope is likely due to vasovagal, orthostatic hypotension. - We'll start patient on fludrocortisone 0.1 mg daily - Continue midodrine 10 mg 3 times a day, Droxidopa 300mg TID. 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 - Regular diet with high salt intake. - Orthostatics positive. Will check Orthostatic in the AM. - Continue IV fluid NS 100cc/hour. - If BP is elevated, consider reducing Droxidopa and/or Midodrine.Fludrocortisone may be more beneficial since it will help to expand intravascular volume. - History of bladder, prostate cancer - Continue tamsulosin 0.4 mg daily at bedtime - Probable urinary tract infection - Start ceftriaxone 1 g daily. - Follow urine culture and sensitivity. De-escalate antibiotics based on culture results. Full code. Mauricio Torres DO December 16, 2016 3:33 pm
[2016-12-16] MEDS ORDERED: FLUDROCORTISONE ACETATE 0.1 MG TAB PO ONE (15:45)
[2016-12-16] MEDS ORDERED: ACETAMINOPHEN/HYDROcodone 325 MG/5 MG TAB PO PRN (19:15)
[2016-12-16] MEDS ORDERED: CARBOXYMETHYLCELL SOD 0.5% OPTH SOLN 15 ML BTL EACH EYE PRN (19:15)
[2016-12-16] MEDS ORDERED: FLUTICASONE PROPIONATE 50 MCG/ACT 16 GM NASAL SPRAY EACH NARE PRN (19:15)
[2016-12-16] MEDS: SODIUM CHLORIDE 0.9% FLUSH 10 ML FLUSH IV FLUSH SCH (21:00)
[2016-12-16] MEDS: DOCUSATE SODIUM 50 MG/SENNA 8.6 MG TAB PO SCH (21:17)
[2016-12-16] MEDS: TAMSULOSIN HCL 0.4 MG CAP PO SCH (21:17)
[2016-12-17] VITALS (7 sets, daily range): BP systolic 56–193; BP diastolic 41–115; PULSE 63–82; RESP 16–18; TEMP 97.5–98.2; O2SAT 93–95
[2016-12-17] MEDS: SODIUM CHLOR 0.9% 1000 ML INJ 1,000 ML IV SCH ×3 (01:45→20:48)
--- NOTE | 2016-12-17 05:16 | MB ---
cc: ARCADIO LARRY M.D.,ORA DAWNAJOEL,ANA DATE OF CONSULTATION 12/16/[address] Delacruz for asking us to see this pleasant 82-year-old white male who is a patient of Dr. Loomis who has a history of bladder and prostate cancer, CVA, macular degeneration. He was noted to have a drop attack yesterday with hypotension. He has been having very severe neurocardiogenic syncope, currently on Northera and midodrine. He is still symptomatic. He has been seen with Dr. Alvarez and we decided to increase his salt intake to 4 grams of salt daily and also consider compression stockings to try and improve his orthostatic hypotension. PAST MEDICAL HISTORY 1. Positive for syncope or static hypotension. 2. UTI. 3. Bladder cancer. 4. Depression. 5. Macular degeneration. 6. Hearing loss. 7. Ankle surgery. 8. Appendectomy. 9. TURP. 10. Prostate biopsy. MEDICATIONS AT HOME 1. Flomax. 2. Citalopram. 3. Midodrine. 4. [place]. 5. Zyrtec. 6. Aspirin. 7. Lexapro. 8. Fluticasone. REVIEW OF SYSTEMS Positive for near-syncope and syncope. Denies seizure, headaches, vomiting, diarrhea, dysuria and hematuria. Remainder of 12-point review of systems is negative. SOCIAL HISTORY Non-smoker, non-drinker. No drugs. PHYSICAL EXAMINATION VITAL SIGNS: Pulse was 68, blood pressure 168/89, respirations 20. EYES: No xanthelasma. MOUTH: No cyanosis or pallor. NECK: No JVD. HEART: Two heart sounds, no murmurs. CHEST: Clear. ABDOMEN: Soft. No splenomegaly. EXTREMITIES: Legs reveal no evidence of edema. NEUROLOGICAL: Exam grossly intact. NEURO EXAM: Intact. LABORATORY TESTS White count 5.0, hemoglobin 14.3, platelet count 132,000. Sodium 136, potassium 4.1, BUN 15, creatinine 1.1. INR 0.9. CHEST X-RAY No cardiopulmonary disease. ASSESSMENT AND PLAN At this point the patient appears to be stable from a cardiac perspective. However, when he stands his blood pressure drops to the 90 range. He greer very severe neurocardiogenic syncope. We will try salt loading, possible compression stockings. I had a long discussion with his daughter and Dr. Alvarez. Thank you for asking us to see this patient. Arcadio Larry MD, FRCP,[facility]/SSB /6:45 PM /5:03 AM
--- NOTE | 2016-12-17 05:39 | MB ---
cc: AMMY ELLIOTT M.D. DATE OF CONSULTATION 12/16/2016 DATE OF 1935 AGE [age] years old REASON FOR CONSULTATION Syncope, dizziness, orthostatic hypotension. HISTORY OF PRESENT ILLNESS This is an 81-year-old man with a history of bladder and prostate cancer, orthostatic hypotension, stroke, recently macular degeneration, brought in by his daughter for evaluation of syncope. He had reported collapse on the floor; does not remember what happened. Does have some baseline dementia I am told. He had been seeing my associate in the office, Dr. Myron Devi and when he saw him about a week ago the patient was doing well. He was recently discharged from the hospital with orthostasis and syncope, being treated by Dr. Loomis and he is on Northera as well as midodrine. However, unfortunately he is still symptomatic. PAST MEDICAL HISTORY 1. Bladder and prostate cancer. 2. Orthostatic hypotension. 3. Recent stroke, thalamic. 4. Nephrolithiasis. SOCIAL HISTORY 1. Appendix. 1. Ear surgery. 2. Bladder surgery. 3. Prostate surgery. SOCIAL HISTORY No alcohol, tobacco or drugs. I believe lives with his daughter. HOME MEDICINES 1. Cefuroxime 250 mg b.i.d. 2. Northera 100 mg t.i.d. 3. Baby aspirin. 4. Midodrine 10 mg t.i.d. 5. Tamsulosin. 6. Cetirizine. 7. Fluticasone. 8. Citalopram. 9. [place]. PHYSICAL EXAMINATION VITAL SIGNS: Temperature 97.8, pulse 68, respiratory rate 20, blood pressure currently supine 168/89. Orthostatic-solorio, he had a supine of 132/84 and standing 83/51. This was at 01:55 p.m. NECK: Supple. No bruits. HEART: Regular. NEUROLOGIC: He is awake and alert. Speech is intact. Pupils reactive. Face symmetrical. Tongue midline. Motor: No drift. No leg lag. Toes are downgoing. Cerebellar is normal. Gait is withheld at this time. DTRs are 1+. LABORATORY DATA CBC is reviewed, platelets 132,000. Chemistries: His GFR is 63. Urine: Moderate leukocyte esterase. He has what appears to be a UTI. Cultures are pending. Last culture on the did not grow anything. IMAGING STUDIES He had a carotid ultrasound in November that shows bilateral plaquing, no significant stenosis. His MRI showed subacute infarct, left thalamic nuclei. MRA [place] within normal limits. IMPRESSION An 81-year-old man with orthostatic hypotension, likely contributing to his dizziness and syncope and near-syncope. RECOMMENDATIONS 1. At this point in time, put him on salt tablets. 2. The Florinef has been started 0.1 mg daily, adjust dose accordingly. 3. Antibiotics were given for his UTI. 4. He can continue the Northera as needed. We will see what his blood pressure does with Florinef. 5. Head of bed elevated and compression stockings. 6. Repeat orthostatics three times a day. 7. If he is stable, he can be discharged and follow up with Dr. Devi as an outpatient as well as with Cardiology. MD COLE Johnson/TUSHAR /6:48 PM /5:18 AM
[2016-12-17] MEDS: DROXIDOPA PO SCH ×3 (08:31→17:39)
[2016-12-17] MEDS: MIDODRINE 5 MG TAB PO SCH ×3 (08:31→17:39)
[2016-12-17] MEDS: DOCUSATE SODIUM 50 MG/SENNA 8.6 MG TAB PO SCH ×2 (08:32→20:47)
[2016-12-17] MEDS: ASPIRIN EC 81 MG TABEC PO SCH (08:32)
[2016-12-17] MEDS: SODIUM CHLORIDE 0.9% FLUSH 10 ML FLUSH IV FLUSH SCH ×2 (08:32→20:48)
[2016-12-17] MEDS: CITALOPRAM HYDROBROMIDE 20 MG TAB PO SCH (08:32)
[2016-12-17] MEDS ORDERED: DROXIDOPA PO SCH (09:00)
[2016-12-17] MEDS ORDERED: FLUDROCORTISONE ACETATE 0.1 MG TAB PO SCH (09:00)
--- NOTE | 2016-12-17 11:43 | HHI.PR ---
Subjective Remarks Follow up for syncope with orthostatic hypotension. The patient reports continued lightheadedness and near syncope upon standing. Denies any lightheadedness while sitting upright in bed. Orthostatic blood pressures still dropping significantly with standing BP 56/41 this morning. Otherwise, the patient denies any other medical complaints including no chest pain, palpitations, or shortness of breath. Objective Vitals Vital Signs Date Time Temp Pulse Resp B/P Pulse Ox O2 Delivery O2 Flow Rate FiO2 12/17/16 08:00 98.2 68 18 133/89 93 104/67 56/41 12/17/16 08:00 63 12/17/16 06:41 68 12/17/16 04:00 67 18 148/75 93 97/55 60/45 12/17/16 00:10 98.2 82 18 155/80 94 125/80 98/60 12/16/16 19:59 98.0 75 18 127/78 97 100/54 124/59 12/16/16 18:15 68 20 168/89 99 12/16/16 17:30 68 16 93/57 98 12/16/16 13:55 67 14 132/84 73 14 119/80 83/51 12/16/16 13:54 67 14 132/84 98 Room Air 12/16/16 13:01 66 18 145/70 100 Nasal Cannula 2 12/16/16 12:30 78 16 98/56 95 Room Air 12/16/16 11:50 97.8 66 20 97/52 94 Room Air I/O 12/16/16 12/16/16 12/16/16 12/17/16 12/17/16 12/17/16 07:00 15:00 23:00 07:00 15:00 23:00 Output Total 500 ml Balance -500 ml Output Urine Total 500 ml # Voids 1 5 # Bowel Movements 1 Result Diagram: 12/16/16 1250 12/16/16 1250 Imaging Last Impressions Chest X-Ray 12/16/16 1213 Signed Impressions: Service Date/Time: Friday, December 16, 2016 12:45 - CONCLUSION: No acute cardiopulmonary disease identified. Daniel Champion MD Objective Remarks GENERAL: Well-nourished, well-developed elderly male patient in [facility]. SKIN: Warm and dry. No rash. HEENT: Normocephalic. Atraumatic. Pupils equal and round. Mucous membranes pink and moist. NECK: Supple. Trachea midline. CARDIOVASCULAR: Regular rate and rhythm. S1, S2 noted. No murmur appreciated. RESPIRATORY: No accessory muscle use. Clear to auscultation. Breath sounds equal bilaterally. GASTROINTESTINAL: Abdomen soft, non-tender, nondistended. Normoactive bowel sounds x4. MUSCULOSKELETAL: No obvious deformities. Extremities without clubbing, cyanosis , or edema. NEUROLOGICAL: Awake and alert. No obvious cranial nerve deficits. Motor grossly within normal limits. 5/5 muscle strength in bilateral upper and lower extremities. Normal speech. PSYCHIATRIC: Appropriate mood and affect; insight and judgment normal. Medications and IVs Current Medications Medications (Trade) Dose Ordered Sig/Corazon Route Start Time Stop Time Status Last Admin (NS 1000 ml Inj) 1,000 ml @ 100 mls/hr Q10H IV 12/16/16 15:00 12/17/16 01:45 (NS Flush) 2 ml UNSCH PRN IV FLUSH 12/16/16 14:45 (NS Flush) 2 ml BID IV FLUSH 12/16/16 21:00 (Tylenol) 650 mg Q4H PRN PO 12/16/16 14:45 (Zofran Inj) 4 mg Q6H PRN IVP 12/16/16 14:45 (Narcan Inj) 0.4 mg UNSCH PRN IV 12/16/16 14:45 (Neena-Colace) 1 tab BID PO 12/16/16 21:00 12/17/16 08:32 (Milk Of Magnesia Liq) 30 ml Q12H PRN PO 12/16/16 14:45 (Senokot) 17.2 mg Q12H PRN PO 12/16/16 14:45 (Dulcolax Supp) 10 mg DAILY PRN RECTAL 12/16/16 14:45 (Lactulose Liq) 30 ml DAILY PRN PO 12/16/16 14:45 (Florinef) 0.1 mg DAILY PO 12/17/16 09:00 12/17/16 08:29 Patient Own Medication PT OWN MED: NORTHERA(DROXIDOPA) 300 MG PO TID TID PO 12/17/16 09:00 12/17/16 08:31 (Rocephin Inj/NS Inj) 100 ml @ 200 mls/hr Q24H IV 12/17/16 14:00 12/21/16 13:59 (Ecotrin Ec) 81 mg DAILY PO 12/17/16 09:00 12/17/16 08:32 (Refresh Tears 0.5% Opth Soln) 1 drop DAILY PRN EACH EYE 12/16/16 19:15 (CeleXA) 20 mg DAILY PO 12/17/16 09:00 12/17/16 08:32 (Flonase Moo Spr) 1 spray DAILY PRN EACH NARE 12/16/16 19:15 (Adams 5-325 Mg) 1 tab Q6H PRN PO 12/16/16 19:15 (Proamatine) 10 mg TID PO 12/17/16 09:00 12/17/16 08:31 (Flomax) 0.4 mg HS PO 12/16/16 21:00 12/16/16 21:17 A/P Problem List: (1) Syncope ICD Code: R55 Status: Acute (2) Orthostatic hypotension ICD Code: I95.1 Status: Acute (3) UTI (urinary tract infection) ICD Code: N39.0 Status: Acute Assessment and Plan Mr. Messina is a pleasant 81-year-old male with a history of bladder , prostate cancer, orthostatic hypotension who presents to the emergency department on 12/16/2016 after a syncopal episode in the morning. Patient reports frequent episodes of orthostatic hypotension. He also reports frequent urination and dysuria. - Syncope with Severe Orthostatic hypotension: Patient's syncope is likely due to vasovagal, orthostatic hypotension. - Started patient on fludrocortisone 0.1 mg bid and added Sodium Chloride 1GM daily - *If BP is elevated, consider reducing Droxidopa and/or Midodrine. Fludrocortisone may be more beneficial since it will help to expand intravascular volume. - Continue patient's midodrine 10 mg tid, Droxidopa 300mg TID. - apply AKBAR hose. - Regular diet with high salt intake. - Continue to monitor orthostatics - Continue IV fluid NS 100cc/hour. - Patient continues to have severe orthostatic hypotension with standing BP 56/41 today - Consider discontinuing patient's flomax as this is known to cause orthostatic hypotension, discussed with the patient, he is hesitant as he has severe urinary retention/hesitancy/frequency secondary to his bladder cancer - Consulted neurology and cardiology, appreciate recommendations - Check cortisol level, give IV hydrocortisone 50mg x1 now - History of bladder, prostate cancer - Continue tamsulosin 0.4 mg daily at bedtime for now - Suspect Urinary Tract Infection - Start IV ceftriaxone 1 g daily. - Follow urine culture and sensitivity. De-escalate antibiotics based on culture results. Full code. DVT Prophylaxis: teds/SCDs Discharge Planning Not yet ready for discharge. Continue to monitor orthostatic vital signs, will discharge once standing BP has improved. Janell Vail PA-C Dec 17, 2016 11:43
--- NOTE | 2016-12-17 11:56 | EKG ---
Date Performed: 12/16/2016 Time Performed: 12:05:10 PTAGE: 81 years EKG: Sinus rhythm WITH SINUS ARRHYTHMIA NONSPECIFIC T-WAVE ABNORMALITY BORDERLINE ECG PREVIOUS TRACING : 12/08/2016 17.22 Compared to the previous tracing, previously with PVCs DOCTOR: Peng Allred Interpretating Date/Time 12/17/2016 11:54:36
[2016-12-17] MEDS ORDERED: HYDROCORTISONE SOD SUCCINATE 100 MG VIAL IV PUSH ONE (12:15)
[2016-12-17] MEDS: SODIUM CHLORIDE 1 GRAM TAB PO SCH (12:32)
[2016-12-17] MEDS: cefTRIAXone INJ 1,000 MG in SODIUM CHLORIDE 0.9% INJ 100 ML IV SCH (14:12)
[2016-12-17] MEDS: FLUDROCORTISONE ACETATE 0.1 MG TAB PO SCH (20:47)
[2016-12-17] MEDS: TAMSULOSIN HCL 0.4 MG CAP PO SCH (20:47)
[2016-12-18] VITALS: BP_SYST 122; BP_SYST 173; BP_SYST 78; BP_DIAS 49; BP_DIAS 78; BP_DIAS 97; PULSE 67; RESP 18; TEMP 97.6; O2SAT 94
[2016-12-18 02:20] VITALS: PULSE 66
[2016-12-18 04:00] VITALS: BP_SYST 127; BP_SYST 58; BP_SYST 81; BP_DIAS 37; BP_DIAS 50; BP_DIAS 69; PULSE 71; RESP 16; TEMP 97.8; O2SAT 90
[2016-12-18] MEDS: SODIUM CHLOR 0.9% 1000 ML INJ 1,000 ML IV SCH (06:53)
[2016-12-18 08:16] VITALS: BP_SYST 142; BP_SYST 91; BP_SYST 98; BP_DIAS 56; BP_DIAS 57; BP_DIAS 69; PULSE 66; RESP 21; TEMP 97.8; O2SAT 94
[2016-12-18] MEDS: SODIUM CHLORIDE 0.9% FLUSH 10 ML FLUSH IV FLUSH SCH (09:00)
[2016-12-18] MEDS ORDERED: FINASTERIDE 5 MG TAB PO SCH (09:00)
--- NOTE | 2016-12-18 09:07 | HHI.PR ---
Subjective Remarks Follow-up for orthostatic hypotension. The patient states he was out of bed yesterday and denies any further dizziness. He feels well and is asking go home today. He states that he had one fall since his previous hospitalization. He had not been utilizing AKBAR hose as previously recommended. He feels like the episodes of near syncope and dizziness have been getting worse over the past year. He understands that with orthostatic hypotension and he will likely continue have episodes of near syncope and falls, but does not want this to limit him and wants to continue to live his life. He states that he has a wheelchair that he uses whenever he goes out of the house. He states that he lives with his son who is always with him. He states that he had one episode of loose bowel movement yesterday and wants to stop the stool softener. He denies any nausea or vomiting and is tolerating diet. Objective Vitals Vital Signs Date Time Temp Pulse Resp B/P Pulse Ox O2 Delivery O2 Flow Rate FiO2 12/18/16 08:16 97.8 66 21 142/69 94 98/56 91/57 12/18/16 04:00 97.8 71 16 127/69 90 81/50 58/37 12/18/16 02:20 66 12/18/16 00:00 97.6 67 18 173/97 94 122/78 78/49 12/17/16 19:59 97.5 80 18 168/115 95 128/72 183/102 12/17/16 16:00 97.7 76 16 193/105 93 177/92 98/60 I/O 12/17/16 12/17/16 12/17/16 12/18/16 12/18/16 12/18/16 07:00 15:00 23:00 07:00 15:00 23:00 Intake Total 1460 ml Output Total 950 ml 3026 ml 750 ml Balance -950 ml -1566 ml -750 ml Intake Oral 560 ml IV Total 900 ml Output Urine Total 950 ml 3025 ml 750 ml Stool Total 1 ml # Voids 5 8 6 # Bowel Movements 1 2 Result Diagram: 12/16/16 1250 12/16/16 1250 Imaging Last Impressions Chest X-Ray 12/16/16 1213 Signed Impressions: Service Date/Time: Friday, December 16, 2016 12:45 - CONCLUSION: No acute cardiopulmonary disease identified. Daniel Champion MD Objective Remarks GENERAL: Well-developed well-nourished. In no acute distress. SKIN: Warm and dry. No lesions noted. HEENT: Normocephalic. Pupils equal and round. Mucous membranes pink and moist. CARDIOVASCULAR: Regular rate and rhythm. No murmur appreciated. RESPIRATORY: No accessory muscle use. Clear to auscultation. Breath sounds equal bilaterally. GASTROINTESTINAL: Abdomen soft, non-tender, nondistended. Bowel sounds x4. MUSCULOSKELETAL: No obvious deformities. No clubbing or cyanosis. No edema. NEUROLOGICAL: Awake and alert. No focal neurological deficits. Moves upper and lower extremities spontaneously. Normal speech. PSYCHIATRIC: Appropriate mood and affect; insight and judgment normal. A/P Problem List: (1) Syncope ICD Code: R55 Status: Acute (2) Orthostatic hypotension ICD Code: I95.1 Status: Acute (3) UTI (urinary tract infection) ICD Code: N39.0 Status: Acute Assessment and Plan Mr. Messina is a pleasant 81-year-old male with a history of bladder , prostate cancer, orthostatic hypotension who presents to the emergency department on 12/16/2016 after a syncopal episode in the morning. Patient reports frequent episodes of orthostatic hypotension. He also reports frequent urination and dysuria. - Syncope with Severe Orthostatic hypotension: Patient's syncope is likely due to vasovagal, orthostatic hypotension. - Started patient on fludrocortisone 0.1 mg bid and added Sodium Chloride 1GM daily - *If BP is elevated, consider reducing Droxidopa and/or Midodrine. Fludrocortisone may be more beneficial since it will help to expand intravascular volume. - Continue patient's midodrine 10 mg tid, Droxidopa 300mg TID. - Continue AKBAR hose. - Regular diet with high salt intake. - Continue to monitor orthostatics - Monitor off IVF, DC - Severe orthostasis overnight, but does seem to be somewhat improved this morning. - Consulted neurology and cardiology, appreciate recommendations - Cortisol level essentially were within normal limits, given IV hydrocortisone 50mg x1 - History of bladder, prostate cancer - Stop tamsulosin as this can exacerbate orthostasis and start on Proscar - Urinary Tract Infection, suspected - Continue empiric IV ceftriaxone 1 g daily. - Follow urine culture and sensitivity. De-escalate antibiotics based on culture results. DVT Prophylaxis: teds/SCDs D/W Dr. Hunter Discharge Planning Possible discharge later today if orthostasis remains improved and patient remains stable. The patient may benefit from home PT regimen. Praneeth Jackson Dec 18, 2016 09:07
--- NOTE | 2016-12-18 09:10 | HHI.FF ---
Face to Face Verification Diagnosis: (1) Frequent falls (2) Orthostatic hypotension (3) Syncope Physical Therapy Order: Evaluate and Treat, Improve ambulation, Strength and gait training I have seen patient Herb Messina on 12/18/16. My clinical findings support the need for the requested home health care services because: Ltd mobility - disease progression Deconditioned w/ increased weakness High risk of falls I certify that my clinical findings support that this patient is homebound because: Unsteady gait/balance Unsafe to leave home unassisted Unable to use public transportation Praneeth Jackson Dec 18, 2016 09:10
[2016-12-18] MEDS: DROXIDOPA PO SCH ×2 (09:23→13:18)
[2016-12-18] MEDS: FLUDROCORTISONE ACETATE 0.1 MG TAB PO SCH (09:24)
[2016-12-18] MEDS: MIDODRINE 5 MG TAB PO SCH ×2 (09:24→13:19)
[2016-12-18] MEDS: CITALOPRAM HYDROBROMIDE 20 MG TAB PO SCH (09:24)
[2016-12-18] MEDS: SODIUM CHLORIDE 1 GRAM TAB PO SCH (09:24)
[2016-12-18] MEDS: ASPIRIN EC 81 MG TABEC PO SCH (09:24)
[2016-12-18 11:47] VITALS: PULSE 60
[2016-12-18 12:00] VITALS: BP_SYST 104; BP_SYST 147; BP_SYST 154; BP_DIAS 55; BP_DIAS 80; BP_DIAS 85; PULSE 72; RESP 19; TEMP 98.4; O2SAT 95
[2016-12-18] MEDS: cefTRIAXone INJ 1,000 MG in SODIUM CHLORIDE 0.9% INJ 100 ML IV SCH (14:00)
[2016-12-18] MEDS ORDERED: FINA5TAB2 PO (14:49)
[2016-12-18] MEDS ORDERED: SODI1TAB PO (14:49)
[2016-12-18] MEDS ORDERED: FLUD.1 PO (14:49)
--- NOTE | 2016-12-18 15:00 | HHI.DS ---
Discharge Summary Admission Date December 16, 2016 at 14:40 Discharge Date: Dec 18, 2016 Admitting Diagnosis Orthostatic hypotension (1) Syncope ICD Code: R55 Diagnosis: Principal (2) Orthostatic hypotension ICD Code: I95.1 Diagnosis: Principal (3) UTI (urinary tract infection) ICD Code: N39.0 Diagnosis: Secondary Procedures None Brief History - From Admission Mr. Messina is a pleasant 81-year-old male with a history of bladder and prostate cancer, orthostatic hypotension who presents to the emergency department on 12/16/2016 due to an episode of syncope this morning. Patient has a bedside commode. He got up from bed and as he tried to use the commode he fell on the floor and passed out. He reports feeling somewhat foggy , lightheadedness but denies any chest pain, shortness of breath, nausea or vomiting or diaphoresis. Family member at bedside reports that sometimes even when patient is sitting in bed or sitting in his chair, sometimes he has fixed stare. Patient was recently hospitalized for orthostatic hypotension as well as syncope. He was started on midodrine as well as Droxidopa. Despite these medications, family members report that his blood pressure sometimes drops down to 80s over 40s. He often has orthostatic blood pressure at home. Patient follows up with Dr. Loomis (Cardiology) as well as Dr. Devi (neurology). Patient denies any changes in bowel habits. He does have frequent urination and burning sensation. CBC/BMP: 12/16/16 1250 12/16/16 1250 Significant Findings Laboratory Tests Test 12/16/16 12/16/16 12:50 14:04 Platelet Count 132 TH/MM3 (150-450) Monocytes (%) (Auto) 13.4 % (0.0-8.0) Eosinophils (%) (Auto) 5.0 % (0.0-4.0) Estimat Glomerular Filtration 63 ML/MIN (>89) Rate Aspartate Amino Transf 14 U/L (15-37) (AST/SGOT) Troponin I LESS THAN 0.02 NG/ML (0.02-0.05) Urine Leukocyte Esterase MOD (NEG) Urine WBC 16 /hpf (0-5) Urine Mucus FEW /lpf (OCC) Imaging Last Impressions Chest X-Ray 12/16/16 1213 Signed Impressions: Service Date/Time: Friday, December 16, 2016 12:45 - CONCLUSION: No acute cardiopulmonary disease identified. Daniel Champion MD PE at Discharge GENERAL: Well-developed well-nourished. In no acute distress. SKIN: Warm and dry. No lesions noted. HEENT: Normocephalic. Pupils equal and round. Mucous membranes pink and moist. CARDIOVASCULAR: Regular rate and rhythm. No murmur appreciated. RESPIRATORY: No accessory muscle use. Clear to auscultation. Breath sounds equal bilaterally. GASTROINTESTINAL: Abdomen soft, non-tender, nondistended. Bowel sounds x4. MUSCULOSKELETAL: No obvious deformities. No clubbing or cyanosis. No edema. NEUROLOGICAL: Awake and alert. No focal neurological deficits. Moves upper and lower extremities spontaneously. Normal speech. PSYCHIATRIC: Appropriate mood and affect; insight and judgment normal. Pt update on day of discharge Patient ambulated well with PT with no symptoms. Standing BP has improved after steroid administration. Discussed at length with patient and daughter at bedside. Agreeable for home PT. Discharge today. Hospital Course Mr. Messina is a pleasant 81-year-old male with a history of bladder , prostate cancer, orthostatic hypotension who presents to the emergency department on 12/16/2016 after a syncopal episode in the morning. Patient reports frequent episodes of orthostatic hypotension. He also reports frequent urination and dysuria. - Syncope with Severe Orthostatic hypotension: Patient's syncope is likely due to vasovagal, orthostatic hypotension. - given IV hydrocortisone 50mg x1 and started patient on fludrocortisone 0.1 mg bid and added Sodium Chloride 1GM daily - Continue patient's midodrine 10 mg tid, Droxidopa 300mg TID. - AKBAR conley. - Regular diet with high salt intake. - BP improved s/p IVF DC'd - Consulted neurology and cardiology, appreciate recommendations - Cortisol level essentially within normal limits, - History of bladder, prostate cancer - Stop tamsulosin in 34 weeks as tolerated as this can exacerbate orthostasis and - started on Proscar - Follow-up with urology - Urinary Tract Infection, suspected -Urine culture with no growth, discontinue empiric antibiotics Pt Condition on Discharge: Stable Discharge Disposition: Discharge Home Discharge Time: > 30 minutes Discharge Instructions DIET: Follow Instructions for: Heart Healthy Diet Activities you can perform: Regular-No Restrictions Other Activity Instructions: Slow transitions from laying to sitting and sitting to standing Follow up Referrals: Cardiology - 2 Weeks with Phan Loomis MD PCP Follow-up - 1 Week with Nesha Coronado Jr., MD New Medications: Finasteride (Finasteride) 5 Mg Tab 5 MG PO DAILY urinary retention #30 TAB Fludrocortisone (Fludrocortisone) 0.1 Mg Tab 0.1 MG PO BID orthostatic hypotension #60 TAB Sodium Chloride (Sodium Chloride) 1 Gm Tab 1 GM PO DAILY orthostatic hypotension #7 TAB Continued Medications: Aspirin DR (Aspirin EC) 81 Mg Tabdr 81 MG PO DAILY tia #30 TAB Carboxymethylcellulose Sodium Opth Drops (Refresh Tears Opth Drops) 0.5% Drops 1 DROP EACH EYE DAILY PRN DRY EYE Cetirizine (Cetirizine) 10 Mg Tab 10 MG PO DAILY Allergies Ref 0 TAB Citalopram (Citalopram) 20 Mg Tab 20 MG PO DAILY Control Depression #30 Ref 0 TAB Droxidopa (Northera) 100 Mg Cap 300 TAB PO TID orthostatic bp Days 30 Ref 0 UNITS Fluticasone Nasal [place] (Fluticasone Nasal [place]) 50 Mcg/Act Naspr 1 SPRAY EACH NARE DAILY 50 mcg/spray PRN ALLERGIES #1 Ref 0 BOTTLE Hydrocodone-Acetaminophen ([place]) 5-325 mg Tab 1 TAB PO Q6H PRN PAIN Ref 0 TAB Midodrine (Midodrine) 10 Mg Tab 10 MG PO TID Control Low Blood Pressure #90 Ref 0 TAB Tamsulosin (Tamsulosin) 0.4 Mg Cap 0.4 MG PO HS Manage Prostate Problems #30 Ref 0 CAP Discontinued Medications: Cefuroxime (Cefuroxime) 250 Mg Tab 250 MG PO BID Infection #14 Ref 0 TAB Praneeth Jackson Dec 18, 2016 15:00
== END 2016-12-18 16:27 | disposition home or self-care (01) ==
LOC: NEPE 11:47 → NEDA 14:40 → NEPFCDU 17:29
PROVIDERS: ADMIT Internal Medicine; ATTEND Internal Medicine
DX: I95.1 Orthostatic hypotension (principal); R07.9 Chest pain, unspecified; R30.0 Dysuria; R35.0 Frequency of micturition; H35.30 Unspecified macular degeneration; Z86.73 Personal history of transient ischemic attack (TIA), and cerebral infarction without residual deficits; Z85.46 Personal history of malignant neoplasm of prostate
CPT/HCPCS: 71010; 80053; 81001; 82533; 82550; 82607; 83735; 84484; 85025; 85610; 85730; 87086; 93005; 96361; 96374; 96376; 97110; 97162; 97530; 99285; G0378; G8987; G8988; J0696; J1720; J7030; J7040

== ENCOUNTER 2017-01-12 15:56 | Observation (INO) | payer MEDICARE ==
[~2017-01-12] VITALS: Ht 185.4 cm; Wt 87.0 kg
[2017-01-12] VITALS (7 sets, daily range): BP systolic 108–198; BP diastolic 61–162; PULSE 80–92; RESP 18–24; TEMP 98.1–98.7; O2SAT 91–95
[~2017-01-12 15:56] MED LIST changes: -CEFU250T PO; +FINA5TAB2 PO; +FLUD.1 PO; +REFR0.5D4 EACH EYE; +SODI1TAB PO
--- NOTE | 2017-01-12 16:18 | PD ---
HPI Chief Complaint: Chest Pain Time Seen by Provider: 16:18 Travel History International Travel<30 days: No Contact w/Intl Traveler<30days: No Traveled to known affect area: No History of Present Illness HPI 81-year-old male with history of CVA, dizziness, orthostatic hypotension, prostate cancer, bladder cancer, presents to the emergency department for evaluation of chest pain. Patient had a latter neoplasm resection this morning with Dr. Montez today at [facility] same-day surgery. He states he was doing well. He went home and while eating he began to have a chest pain that was substernal and sharp in nature. He went to lay down. It would subside however it did not. His contacted 911. She then called Dr. loomis, the patient's license registration examiner. Patient has arrived here in the emergency department, stating he has no pain and would like to go home. States he did not become dizzy or lightheaded during this episode. States that he has frequent dizziness and this was not back. Denies any nausea or episodes of diaphoresis. He has no other symptoms to report. PFSH Past Medical History Arthritis: No Asthma: No Anxiety: No Depression: No Heart Rhythm Problems: No Cancer: Yes (bladder cancer AND PROSTATE CA ) Cardiovascular Problems: Yes (HYPOTENSION) High Cholesterol: No Chemotherapy: No Chest Pain: No Congestive Heart Failure: No COPD: No Cerebrovascular Accident: Yes Diminished Hearing: No Endocrine: No GERD: No Genitourinary: Yes (bladder ca) Headaches: Yes Hiatal Hernia: No Immune Disorder: No Kidney Stones: Yes Musculoskeletal: No Neurologic: Yes Psychiatric: No Reproductive: No Respiratory: No Migraines: No Radiation Therapy: No Renal Failure: No Seizures: No Sleep Apnea: No Ulcer: No Past Surgical History Abdominal Surgery: Yes (APPENDEX) AICD: No Appendectomy: Yes Arteriovenous Shunt: No Cardiac Surgery: No Ear Surgery: Yes Genitourinary Surgery: Yes Gynecologic Surgery: No Insulin Pump: No Joint Replacement: No Oral Surgery: No Pacemaker: No Thoracic Surgery: No Other Surgery: Yes (bladder surgery) Social History Alcohol Use: No Tobacco Use: No Substance Use: No Allergies-Medications (Allergen,Severity, Reaction): Coded Allergies: No Known Allergies (Unverified , 12/16/16) Reported Meds & Prescriptions Reported Meds & Active Scripts Active Fludrocortisone (Fludrocortisone Acetate) 0.1 Mg Tab 0.1 Mg PO BID Finasteride 5 Mg Tab 5 Mg PO DAILY Northera (Droxidopa) 100 Mg Cap 300 Tab PO TID 30 Days Aspirin EC (Aspirin) 81 Mg Tabdr 81 Mg PO DAILY Reported Percocet (Oxycodone-Acetaminophen) 5-325 mg Tab 1-2 Tab PO Q6H PRN Refresh Tears Opth Drops (Carboxymethylcellulose Sodium Opth Drops) 0.5% Drops 1 Drop EACH EYE DAILY PRN Fluticasone Nasal [place] 50 Mcg/Act Naspr 1 [place] EACH NARE DAILY PRN 50 mcg/spray Cetirizine (Cetirizine HCl) 10 Mg Tab 10 Mg PO DAILY Midodrine 10 Mg Tab 10 Mg PO TID Citalopram (Citalopram Hydrobromide) 20 Mg Tab 20 Mg PO DAILY Review of Systems Except as stated in HPI: all other systems reviewed are Neg Physical Exam Narrative GENERAL: Well-nourished elderly male patient in no acute distress SKIN: Focused skin assessment warm/dry. HEAD: Atraumatic. Normocephalic. EYES: Pupils equal and round. No scleral icterus. No injection or drainage. ENT: No nasal bleeding or discharge. Mucous membranes pink and moist. NECK: Trachea midline. No JVD. CARDIOVASCULAR: Regular rate and rhythm. RESPIRATORY: No accessory muscle use. Clear to auscultation. Breath sounds equal bilaterally. GASTROINTESTINAL: Abdomen soft, non-tender, nondistended. Hepatic and splenic margins not palpable. MUSCULOSKELETAL: No obvious deformities. No clubbing. No cyanosis. No edema. NEUROLOGICAL: Awake and alert. No obvious cranial nerve deficits. Motor grossly within normal limits. Normal speech. PSYCHIATRIC: Appropriate mood and affect; insight and judgment normal. Data Data Last Documented VS Vital Signs Date Time Temp Pulse Resp B/P Pulse Ox O2 Delivery O2 Flow Rate FiO2 01/12/17 17:40 88 24 198/98 94 Room Air 01/12/17 16:15 98.1 Orders Electrocardiogram (01/12/17 16:17) Basic Metabolic Panel (Bmp) (01/12/17 16:17) Ckmb (Isoenzyme) Profile (01/12/17 16:17) Complete Blood Count With Diff (01/12/17 16:17) Magnesium (Mg) (01/12/17 16:17) Prothrombin Time / Inr (Pt) (01/12/17 16:17) Act Partial Throm Time (Ptt) (01/12/17 16:17) Troponin I (01/12/17 16:17) Lipase (01/12/17 16:17) Chest, Single Ap (01/12/17 16:17) Ecg Monitoring (01/12/17 16:17) Bilateral Bp Monitoring (01/12/17 16:17) Iv Access Insert/Monitor (01/12/17 16:17) Oximetry (01/12/17 16:17) Oxygen Administration (01/12/17 16:17) Sodium Chloride 0.9% Flush (Ns Flush) (01/12/17 16:30) Sodium Chlorid 0.9% 500 Ml Inj (Ns 500 M (01/12/17 18:30) Labs Laboratory Tests Test 01/12/17 16:51 White Blood Count 3.6 TH/MM3 Red Blood Count 4.51 MIL/MM3 Hemoglobin 13.9 GM/DL Hematocrit 41.6 % Mean Corpuscular Volume 92.2 FL Mean Corpuscular Hemoglobin 30.9 PG Mean Corpuscular Hemoglobin 33.5 % Concent Red Cell Distribution Width 13.7 % Platelet Count 142 TH/MM3 Mean Platelet Volume 7.8 FL Neutrophils (%) (Auto) 83.5 % Lymphocytes (%) (Auto) 14.6 % Monocytes (%) (Auto) 1.7 % Eosinophils (%) (Auto) 0.0 % Basophils (%) (Auto) 0.2 % Neutrophils # (Auto) 3.0 TH/MM3 Lymphocytes # (Auto) 0.5 TH/MM3 Monocytes # (Auto) 0.1 TH/MM3 Eosinophils # (Auto) 0.0 TH/MM3 Basophils # (Auto) 0.0 TH/MM3 CBC Comment DIFF FINAL Differential Comment Prothrombin Time 10.3 SEC Prothromb Time International 0.9 RATIO Ratio Activated Partial 20.7 SEC Thromboplast Time Sodium Level 142 MEQ/L Potassium Level 3.4 MEQ/L Chloride Level 103 MEQ/L Carbon Dioxide Level 30.1 MEQ/L Anion Gap 9 MEQ/L Blood Urea Nitrogen 18 MG/DL Creatinine 1.63 MG/DL Estimat Glomerular Filtration 41 ML/MIN Rate Random Glucose 256 MG/DL Calcium Level 9.0 MG/DL Magnesium Level 1.9 MG/DL Total Creatine Kinase 44 U/L Troponin I LESS THAN 0.02 NG/ML Lipase 115 U/L MDM Medical Decision Making Medical Screen Exam Complete: Yes Emergency Medical Condition: Yes Medical Record Reviewed: Yes Differential Diagnosis ACS versus chest wall pain versus indigestion versus anxiety Narrative Course 81-year-old male presents to emergency department for evaluation of chest pain. At this time he is completely chest pain-free. He denies any recent illnesses. Would like to go home. I discussed the patient with my attending physician and chest pain workup is initiated. Laboratory Tests Test 01/12/17 16:51 White Blood Count 3.6 TH/MM3 Red Blood Count 4.51 MIL/MM3 Hemoglobin 13.9 GM/DL Hematocrit 41.6 % Mean Corpuscular Volume 92.2 FL Mean Corpuscular Hemoglobin 30.9 PG Mean Corpuscular Hemoglobin 33.5 % Concent Red Cell Distribution Width 13.7 % Platelet Count 142 TH/MM3 Mean Platelet Volume 7.8 FL Neutrophils (%) (Auto) 83.5 % Lymphocytes (%) (Auto) 14.6 % Monocytes (%) (Auto) 1.7 % Eosinophils (%) (Auto) 0.0 % Basophils (%) (Auto) 0.2 % Neutrophils # (Auto) 3.0 TH/MM3 Lymphocytes # (Auto) 0.5 TH/MM3 Monocytes # (Auto) 0.1 TH/MM3 Eosinophils # (Auto) 0.0 TH/MM3 Basophils # (Auto) 0.0 TH/MM3 CBC Comment DIFF FINAL Differential Comment Prothrombin Time 10.3 SEC Prothromb Time International 0.9 RATIO Ratio Activated Partial 20.7 SEC Thromboplast Time Sodium Level 142 MEQ/L Potassium Level 3.4 MEQ/L Chloride Level 103 MEQ/L Carbon Dioxide Level 30.1 MEQ/L Anion Gap 9 MEQ/L Blood Urea Nitrogen 18 MG/DL Creatinine 1.63 MG/DL Estimat Glomerular Filtration 41 ML/MIN Rate Random Glucose 256 MG/DL Calcium Level 9.0 MG/DL Magnesium Level 1.9 MG/DL Total Creatine Kinase 44 U/L Troponin I LESS THAN 0.02 NG/ML Lipase 115 U/L CBC without acute concern. BMP is also without acute concern. Creatinine is elevated at 1.3 with GFR 41. Troponin is less than 0.02. Chest x-ray shows no acute cardiopulmonary disease. Alignment of that, patient is hypertensive however the states he takes medication to increase his blood pressure and he has significant orthostatic hypotension. I think the patient has resolved and was lying to call his license registration examiner however the patient's tells me that she has already called him and he has been in and wants admitted. I do not have any communication with him at this point so I have placed a call to him to confirm. 1899 received a call from Dr. Díaz, license registration examiner tombstone erector for Dr. Loomis He does request admission to medicine and I consulted them. A call has been placed [facility]. Diagnosis Primary Impression: Chest pain Qualified Code: R07.9 - Chest pain, unspecified type Additional Impression: Orthostatic hypotension Admitting Information Admitting Physician Requests: Observation Condition: Stable [place] Jan 12, 2017 16:18
[2017-01-12] MEDS ORDERED: SODIUM CHLORIDE 0.9% FLUSH 10 ML FLUSH IVF PRN (16:30)
--- NOTE | 2017-01-12 16:55 | RADRPT ---
EXAM DATE/TIME: 01/12/2017 16:21 [facility] COMPARISON: CHEST SINGLE AP, December 16, 2016, 12:45. INDICATIONS : Chest pain in the middle of the chest today MEDICAL HISTORY : Hypertension. Carcinoma, prostatic. Carcinoma, bladder. CVA SURGICAL HISTORY : Appendectomy. ENCOUNTER: Initial ACUITY: 1 day PAIN SCORE: 6/10 LOCATION: Bilateral chest FINDINGS: Redemonstration bilateral calcified pleural plaques. Lungs are otherwise clear without significant fo manoj parenchymal normality. Cardiomediastinal contours are stable. Bony thorax is intact. CONCLUSION: 1. No acute cardiomegaly disease. Cristian Moctezuma MD on January 12, 2017 at 16:52 Board Certified Radiologist. This report was verified electronically.
[2017-01-12] MEDS ORDERED: PERC5TAB12 PO (16:56)
[2017-01-12 17:16] LABS: BASOPHIL % 0.2 % (0.0-2.0); HEMATOCRIT 41.6 % (39.0-51.0); HEMO FLAGS DIFF FINAL; LYMPH % 14.6 % (9.0-44.0); LYMPHOCYTE # 0.5 TH/MM3 (1.0-4.8); MEAN CELL VOLUME 92.2 FL (80.0-100.0); MEAN CORPUSCULAR HEMOGLOBIN 30.9 PG (27.0-34.0); MEAN CORPUSCULAR HGB CONC 33.5 % (32.0-36.0); MONO % 1.7 % (0.0-8.0); NEUT % 83.5 % (16.0-70.0); PLATELET COUNT 142 TH/MM3 (150-450); RED BLOOD COUNT 4.51 MIL/MM3 (4.50-5.90); RED CELL DISTRIBUTION WIDTH 13.7 % (11.6-17.2); WHITE BLOOD COUNT 3.6 TH/MM3 (4.0-11.0)
[2017-01-12 17:30] LABS: APTT (PATIENT) 20.7 SEC (24.3-30.1); INTERNATIONAL NORMALIZED RATIO 0.9 RATIO; PROTHROMBIN TIME - PATIENT 10.3 SEC (9.8-11.6)
[2017-01-12 17:32] LABS: ANION GAP 9 MEQ/L (5-15); BICARBONATE 30.1 MEQ/L (21.0-32.0); BLOOD UREA NITROGEN 18 MG/DL (7-18); CHLORIDE 103 MEQ/L (98-107); GLOMERULAR FILTRATION RATE 41 ML/MIN (>89); MAGNESIUM 1.9 MG/DL (1.5-2.5); POTASSIUM 3.4 MEQ/L (3.5-5.1); SODIUM (NA) 142 MEQ/L (136-145)
[2017-01-12 17:37] LABS: CREATINE KINASE 44 U/L (39-308)
[2017-01-12] MEDS ORDERED: SODIUM CHLORID 0.9% 500 ML INJ 500 ML IV ONE (18:30)
[2017-01-12] MEDS ORDERED: oxyCODONE/ACETAMINOPHEN 5 MG/325 MG TAB PO PRN (19:45)
[2017-01-12] MEDS ORDERED: NALOXONE HCL 0.4 MG/ML AMP IV PRN (19:45)
[2017-01-12] MEDS ORDERED: SODIUM CHLORIDE 0.9% FLUSH 10 ML FLUSH IV FLUSH PRN (19:45)
--- NOTE | 2017-01-12 22:19 | MB ---
cc: ANA POLANCO DATE OF CONSULTATION 01/12/2017 HISTORY OF THE PRESENT ILLNESS Mr. Messina is an 81-year-old white male with a history of multiple medical problems including bladder cancer, orthostatic hypotension and syncope. He underwent bladder tumor surgery this morning. Afterwards he developed presyncope and severe left parasternal chest pain. He was brought to the [facility]. His chest pain is now improved. He denies any dizziness and he is actually hypertensive. He has no shortness of breath. PAST MEDICAL HISTORY Positive for: 1. Syncope. 2. Orthostatic hypotension. 3. Bladder cancer. 4. Urinary tract infection. 5. Depression. 6. Macular degeneration. 7. Hearing loss. 8. Cerebrovascular accident with MRI in 09/2016 showing subacute infarct in the left thalamic nuclei. 9. Ankle surgery. 10. Appendectomy. 11. Prostate biopsy. 12. Prostate surgery. MEDICATIONS AT HOME Include: 1. Citalopram. 2. Midodrine 10 milligrams three times a day. 3. [place]. 4. Zyrtec. 5. Aspirin. 6. Fluticasone. 7. Multivitamin. 8. triple primary doctor in normal meals the 10 mg three times a day nausea take 9. Aspirin. 10. Fluticasone. 11. Multivitamin. 12. Northera 300 mg three times a day. 13. Fludrocortisone 0.1 mg twice a day. ALLERGIES None. SOCIAL HISTORY The patient does not smoke, does not drink alcohol. FAMILY HISTORY Negative for heart disease. REVIEW OF SYSTEMS Otherwise negative. PHYSICAL EXAMINATION VITAL SIGNS: His blood pressure is 198/98, pulse 88. HEENT: Negative. 2+ carotid upstrokes. No bruits. LUNGS: Clear. HEART: Regular with no murmur, gallop or rub. ABDOMEN: Soft. No bruits. EXTREMITIES: With trace edema. 2+ distal pulses. NEUROLOGIC: Examination is grossly nonfocal. Telemetry showed sinus rhythm. LABORATORY DATA Hemoglobin 13.9, potassium 3.4, creatinine 1.6. Troponin less than 0.02. CK 44. DIAGNOSES 1. Chest pain. 2. Presyncope. 3. Orthostatic hypotension. 4. Hypertension. 5. Bladder cancer, status post surgery. DISPOSITION Mr. Messina will be monitored on telemetry. We will obtain serial enzymes and EKGs. I recommend to continue his Northera 300 milligrams three times a day and Midodrine 10 mg three times a day as prescribed. The patient developed severe hypotension when he was off these medications in the past. I will follow him for cardiology during his hospitalization. I will also see him back for followup in our office. The plan was discussed with the patient and his daughter. MD JAMI Streeter/KK /6:26 PM /10:04 PM
[2017-01-12] MEDS: SODIUM CHLORIDE 0.9% FLUSH 10 ML FLUSH IV FLUSH SCH (22:37)
[2017-01-12] MEDS: FLUDROCORTISONE ACETATE 0.1 MG TAB PO SCH (22:38)
[2017-01-12] MEDS: DROXIDOPA 300 MG PO SCH (22:38)
[2017-01-12] MEDS: MIDODRINE 5 MG TAB PO SCH (22:41)
[2017-01-13 00:36] LABS: CREATINE KINASE 179 U/L (39-308)
[2017-01-13 03:43] VITALS: BP 211/108; PULSE 70; RESP 16; TEMP 96.8; O2SAT 94
--- NOTE | 2017-01-13 04:40 | HHI.HP ---
[facility] Nesha Coronado MD Admission Diagnosis chest pain Diagnoses: Chief Complaint: Chest pain Travel History International Travel<30 Days: No Contact w/Intl Traveler <30 Da: No Traveled to Known Affected Are: No History of Present Illness Written by Arti Chinchilla, acting as scribe for Dr. Reeves on 01/13/17 at 04:40. The patient had a repeat TURBT by Dr. Mi for bladder cancer on 2016. He went home afterwards and had chest pain and called EMS. Blood pressure was noted as severely elevated by paramedics and he was brought to ED. The patient is somewhat forgetful and had difficulty providing much detail regarding his chest pain. He reports some history of memory problems going back 3 years and also is complaining of a frontal headache at the time of the visit. He denies chest pain at the time of visit. The patient reports no increase in urinary bleeding noted since TURBT. Review of Systems Except as stated in HPI: all other systems reviewed are Neg Past Family Social History Past Medical History History of hypotension Atrial fibrillation CVA Prostate CA Bladder CA Denies diabetes mellitus, CAD, COPD/emphysema/asthma, liver or kidney problems, DVT, PE, thyroid problems, or seizures . Past Surgical History TURBT 06/03 TURBT 04/03 TURBT 12/2716 Bilateral eye surgery Left ankle surgery Appendectomy . Reported Medications Reported Meds & Active Scripts Active Fludrocortisone (Fludrocortisone Acetate) 0.1 Mg Tab 0.1 Mg PO BID Finasteride 5 Mg Tab 5 Mg PO DAILY Northera (Droxidopa) 100 Mg Cap 300 Tab PO TID 30 Days Aspirin EC (Aspirin) 81 Mg Tabdr 81 Mg PO DAILY Reported Percocet (Oxycodone-Acetaminophen) 5-325 mg Tab 1-2 Tab PO Q6H PRN Refresh Tears Opth Drops (Carboxymethylcellulose Sodium Opth Drops) 0.5% Drops 1 Drop EACH EYE DAILY PRN Fluticasone Nasal [place] 50 Mcg/Act Naspr 1 [place] EACH NARE DAILY PRN 50 mcg/spray Cetirizine (Cetirizine HCl) 10 Mg Tab 10 Mg PO DAILY Midodrine 10 Mg Tab 10 Mg PO TID Citalopram (Citalopram Hydrobromide) 20 Mg Tab 20 Mg PO DAILY . Allergies: Coded Allergies: No Known Allergies (Unverified , 12/16/16) Active Ordered Medications Current Medications Sodium Chloride 2 ml 2 ml UNSCH PRN IVF FLUSH AFTER USING IV ACCESS; Start at 16:30; Stop 01/12/17 at 21:19; Status DC Sodium Chloride (NS 500 ml Inj) 500 ml @ 500 mls/hr BOLUS ONCE IV Last administered on 01/12/17 19:00; Start 01/12/17 at 18:30; Stop 01/12/17 at 19:29 ; Status DC Sodium Chloride (NS Flush) 2 ml UNSCH PRN IV FLUSH FLUSH AFTER USING IV ACCESS ; Start 01/12/17 at 19:45 Sodium Chloride (NS Flush) 2 ml BID IV FLUSH Last administered on 01/12/17 22: 37; Start 01/12/17 at 21:00 Naloxone HCl (Narcan Inj) 0.4 mg UNSCH PRN IV SEE LABEL COMMENTS; Start at 19:45 Aspirin (Ecotrin Ec) 81 mg DAILY PO ; Start 01/13/17 at 09:00 Cetirizine HCl (ZyrTEC) 10 mg DAILY PO ; Start 01/13/17 at 09:00 Citalopram Hydrobromide (CeleXA) 20 mg DAILY PO ; Start 01/13/17 at 09:00 Finasteride (Proscar) 5 mg DAILY PO ; Start 01/13/17 at 09:00 Fludrocortisone Acetate (Florinef) 0.1 mg BID PO Last administered on 22:38; Start 01/12/17 at 21:00 Midodrine (Proamatine) 10 mg TID PO ; Start 01/13/17 at 09:00; Stop 01/13/17 at 09:00; Status DC Oxycodone/ Acetaminophen (Percocet 5-325 Mg) 1 tab Q6H PRN PO PAIN; Start at 19:45 Patient Own Medication PT OWN MED: DROXID... TID PO orthostatic bp; Start at 09:00; Stop 01/13/17 at 09:00; Status DC Patient Own Medication PT OWN MED: DROXID... TID PO orthostatic bp Last administered on 01/12/17 22:38; Start 01/12/17 at 22:00 Midodrine (Proamatine) 10 mg TID PO Last administered on 01/12/17 22:41; Start 01/12/17 at 22:00 . Family History All of his sisters from smoking related illness Oldest brother age 91 - smoking related illness Father pancreatic cancer . Social History Tobacco: denies Alcohol: occasional social Illicit Drugs: denies . Physical Exam Vital Signs Vital Signs Date Time Temp Pulse Resp B/P Pulse Ox O2 Delivery O2 Flow Rate FiO2 01/13/17 03:43 96.8 70 16 211/108 94 01/12/17 23:45 98.7 83 161/83 95 01/12/17 23:37 87 01/12/17 21:20 81 18 108/61 94 01/12/17 19:39 80 18 197/162 92 Room Air 01/12/17 17:40 88 24 198/98 94 Room Air 01/12/17 16:26 91 20 180/83 94 01/12/17 16:26 89 20 94 01/12/17 16:26 94 Room Air 01/12/17 16:15 98.1 92 18 180/83 91 Room Air Physical Exam GENERAL: This is a pleasant but forgetful elderly male patient, in no apparent distress. SKIN: No rashes. Cool and dry. HEAD: Atraumatic. Normocephalic. EYES: No scleral icterus. No injection or drainage. ENT: Nose without bleeding, purulent drainage. NECK: Trachea midline. No JVD. CARDIOVASCULAR: Regular rate and rhythm without murmurs, gallops, or rubs. RESPIRATORY: Clear to auscultation. Breath sounds equal bilaterally. No wheezes , rales, or rhonchi. GASTROINTESTINAL: Abdomen soft, non-tender, nondistended. No guarding. MUSCULOSKELETAL: Extremities without clubbing, cyanosis, or edema. No calf tenderness. NEUROLOGICAL: Awake and alert; somewhat forgetful. Motor and sensory grossly within normal limits. Normal speech. . Laboratory Laboratory Tests Test 01/12/17 01/12/17 16:51 23:30 White Blood Count 3.6 Red Blood Count 4.51 Hemoglobin 13.9 Hematocrit 41.6 Mean Corpuscular Volume 92.2 Mean Corpuscular Hemoglobin 30.9 Mean Corpuscular Hemoglobin 33.5 Concent Red Cell Distribution Width 13.7 Platelet Count 142 Mean Platelet Volume 7.8 Neutrophils (%) (Auto) 83.5 Lymphocytes (%) (Auto) 14.6 Monocytes (%) (Auto) 1.7 Eosinophils (%) (Auto) 0.0 Basophils (%) (Auto) 0.2 Neutrophils # (Auto) 3.0 Lymphocytes # (Auto) 0.5 Monocytes # (Auto) 0.1 Eosinophils # (Auto) 0.0 Basophils # (Auto) 0.0 CBC Comment DIFF FINAL Differential Comment Prothrombin Time 10.3 Prothromb Time International 0.9 Ratio Activated Partial 20.7 Thromboplast Time Sodium Level 142 Potassium Level 3.4 Chloride Level 103 Carbon Dioxide Level 30.1 Anion Gap 9 Blood Urea Nitrogen 18 Creatinine 1.63 Estimat Glomerular Filtration 41 Rate Random Glucose 256 Calcium Level 9.0 Magnesium Level 1.9 Total Creatine Kinase 44 179 Troponin I LESS THAN 0.02 LESS THAN 0.02 Lipase 115 Result Diagram: 01/12/17 1651 01/12/17 1651 Imaging Last Impressions Chest X-Ray 01/12/17 1617 Signed Impressions: Service Date/Time: Thursday, January 12, 2017 16:21 - CONCLUSION: 1. No acute cardiomegaly disease. Cristian Moctezuma MD . Assessment and Plan Assessment and Plan Atypical chest pain - consult Dr. Larry - serial cardiac enzymes and EKGs to rule out ACS - continuous cardiac telemetry to observe for arrhythmia History of orthostatic hypotension - Check orthostatic vital signs q4h DVT prophylaxis - SCDs . Discussed Condition With ER physician, RN, and patient . Arti Chinchilla Jan 13, 2017 04:40
[2017-01-13 05:21] LABS: AUTOMATED NEUTROPHIL # 8.5 TH/MM3 (1.8-7.7); BASOPHIL % 0.4 % (0.0-2.0); HEMATOCRIT 39.6 % (39.0-51.0); HEMO FLAGS DIFF FINAL; LYMPH % 11.6 % (9.0-44.0); LYMPHOCYTE # 1.2 TH/MM3 (1.0-4.8); MEAN CELL VOLUME 91.4 FL (80.0-100.0); MEAN CORPUSCULAR HEMOGLOBIN 31.9 PG (27.0-34.0); MEAN CORPUSCULAR HGB CONC 34.9 % (32.0-36.0); MONO % 8.6 % (0.0-8.0); NEUT % 79.4 % (16.0-70.0); PLATELET COUNT 155 TH/MM3 (150-450); RED BLOOD COUNT 4.34 MIL/MM3 (4.50-5.90); RED CELL DISTRIBUTION WIDTH 13.8 % (11.6-17.2); WHITE BLOOD COUNT 10.7 TH/MM3 (4.0-11.0)
[2017-01-13 05:49] LABS: POTASSIUM 3.3 MEQ/L (3.5-5.1)
[2017-01-13] MEDS ORDERED: POTASSIUM CHLORIDE 20 MEQ CONTROLLED RELEASE TAB PO ONE (07:00)
[2017-01-13 07:47] VITALS: BP_SYST 114; BP_SYST 172; BP_SYST 78; BP_DIAS 47; BP_DIAS 59; BP_DIAS 82; PULSE 74; RESP 17; TEMP 98; O2SAT 94
--- NOTE | 2017-01-13 08:11 | HHI.PR ---
Subjective Remarks Follow up for chest pain. The patient is awake, alert, oriented to person, place , and time, however is forgetful at times, asked multiple times when his daughter Yareli was coming to the hospital. The patient denies any further complaints of chest pain. He denies any lightheadedness, dizziness, palpitations , shortness of breath, or abdominal complaints. He agrees to discharge today. Objective Vitals Vital Signs Date Time Temp Pulse Resp B/P Pulse Ox O2 Delivery O2 Flow Rate FiO2 01/13/17 03:43 96.8 70 16 211/108 94 01/12/17 23:45 98.7 83 161/83 95 01/12/17 23:37 87 01/12/17 21:20 81 18 108/61 94 01/12/17 19:39 80 18 197/162 92 Room Air 01/12/17 17:40 88 24 198/98 94 Room Air 01/12/17 16:26 91 20 180/83 94 01/12/17 16:26 89 20 94 01/12/17 16:26 94 Room Air 01/12/17 16:15 98.1 92 18 180/83 91 Room Air I/O 01/12/17 01/12/17 01/12/17 01/13/17 01/13/17 01/13/17 07:00 15:00 23:00 07:00 15:00 23:00 Output Total 350 ml 0 ml Balance -350 ml 0 ml Output Urine Total 350 ml 0 ml # Voids 0 6 Result Diagram: 01/13/17 0500 01/13/17 0500 Imaging Last Impressions Chest X-Ray 01/12/17 1617 Signed Impressions: Service Date/Time: Thursday, January 12, 2017 16:21 - CONCLUSION: 1. No acute cardiomegaly disease. Cristian Moctezuma MD Objective Remarks GENERAL: Well-nourished, well-developed elderly male patient in [facility]. SKIN: Warm and dry. No rash. HEENT: Normocephalic. Atraumatic.Pupils equal and round. Mucous membranes pink and moist. NECK: Supple. Trachea midline. CARDIOVASCULAR: Regular rate and rhythm. S1, S2 noted. No murmur appreciated. RESPIRATORY: No accessory muscle use. Clear to auscultation. Breath sounds equal bilaterally. GASTROINTESTINAL: Abdomen soft, non-tender, nondistended. Normoactive bowel sounds x4. MUSCULOSKELETAL: No obvious deformities. Extremities without clubbing, cyanosis , or edema. NEUROLOGICAL: Awake and alert. No obvious cranial nerve deficits. Motor grossly within normal limits. Normal speech. PSYCHIATRIC: Appropriate mood and affect; insight and judgment normal. Medications and IVs Current Medications Medications (Trade) Dose Ordered Sig/Corazon Route Start Time Stop Time Status Last Admin (NS Flush) 2 ml UNSCH PRN IV FLUSH 01/12/17 19:45 (NS Flush) 2 ml BID IV FLUSH 01/12/17 21:00 01/12/17 22:37 (Narcan Inj) 0.4 mg UNSCH PRN IV 01/12/17 19:45 (Ecotrin Ec) 81 mg DAILY PO 01/13/17 09:00 (ZyrTEC) 10 mg DAILY PO 01/13/17 09:00 (CeleXA) 20 mg DAILY PO 01/13/17 09:00 (Proscar) 5 mg DAILY PO 01/13/17 09:00 (Florinef) 0.1 mg BID PO 01/12/17 21:00 01/12/17 22:38 (Percocet 5-325 Mg) 1 tab Q6H PRN PO 01/12/17 19:45 Patient Own Medication PT OWN MED: DROXID... TID PO 01/12/17 22:00 01/12/17 22:38 (Proamatine) 10 mg TID PO 01/12/17 22:00 01/12/17 22:41 A/P Problem List: (1) Chest pain ICD Code: R07.9 Status: Acute (2) Orthostatic hypotension ICD Code: I95.1 Status: Acute Assessment and Plan 81-year-old male with history of hypotension, afib, CVA, prostate/blader cancer s/p TURBT 01/12/17, presents with episode of chest pain after his procedure on Atypical chest pain - consult patient's organizational psychologist Dr. Loomis - ACS ruled out with negative serial cardiac enzymes and EKGs without acute ischemic changes - continuous cardiac telemetry to observe for arrhythmia, no acute events - can likely discharge today if cleared by cardiology History of orthostatic hypotension - patient still severely orthostatic - continue patient's fludrocortisone and midodrine - apply reinaldo hose - adolescent counselor on slow transitions from lying to sitting to standing - monitor orthostatics Hypokalemia: K 3.3. - give po KCl replacement - check magnesium All other medical conditions stable including afib, bladder/prostate cancer, and hx of CVA; continue home medications as appropriate. DVT prophylaxis - teds/SCDs Discharge Planning Can likely discharge later today if cleared by cardiology. Problem Qualifiers (1) Chest pain: Qualified Code: R07.9 - Chest pain, unspecified type Janell Vail PA-C Jan 13, 2017 8:11 am
[2017-01-13] MEDS ORDERED: DROXIDOPA 300 MG PO SCH (09:00)
[2017-01-13] MEDS ORDERED: SODIUM CHLORID 0.9% 500 ML INJ 500 ML IV ONE (09:00)
[2017-01-13] MEDS ORDERED: MIDODRINE 5 MG TAB PO SCH (09:00)
[2017-01-13] MEDS: MIDODRINE 5 MG TAB PO SCH ×3 (09:29→18:31)
[2017-01-13] MEDS: FLUDROCORTISONE ACETATE 0.1 MG TAB PO SCH ×2 (09:31→20:10)
[2017-01-13] MEDS: FINASTERIDE 5 MG TAB PO SCH (09:31)
[2017-01-13] MEDS: CITALOPRAM HYDROBROMIDE 20 MG TAB PO SCH (09:32)
[2017-01-13] MEDS: CETIRIZINE HCL 10 MG TAB PO SCH (09:32)
[2017-01-13] MEDS: ASPIRIN EC 81 MG TABEC PO SCH (09:33)
[2017-01-13] MEDS: SODIUM CHLORIDE 0.9% FLUSH 10 ML FLUSH IV FLUSH SCH ×2 (09:33→20:10)
[2017-01-13] MEDS: DROXIDOPA 300 MG PO SCH ×3 (09:34→18:31)
[2017-01-13 11:29] VITALS: BP 188/91; PULSE 60; RESP 18; TEMP 98.5; O2SAT 95
[2017-01-13 14:47] VITALS: BP_SYST 103; BP_SYST 184; BP_SYST 208; BP_DIAS 103; BP_DIAS 62; BP_DIAS 90; PULSE 77
--- NOTE | 2017-01-13 18:53 | PD.CARD.PN ---
Subjective Subjective Remarks No CP, SOB, dizziness; hallucinating Objective Medications Current Medications Medications (Trade) Dose Ordered Sig/Corazon Route Start Time Stop Time Status Last Admin (NS Flush) 2 ml UNSCH PRN IV FLUSH 01/12/17 19:45 (NS Flush) 2 ml BID IV FLUSH 01/12/17 21:00 01/13/17 09:33 (Narcan Inj) 0.4 mg UNSCH PRN IV 01/12/17 19:45 (Ecotrin Ec) 81 mg DAILY PO 01/13/17 09:00 01/13/17 09:33 (ZyrTEC) 10 mg DAILY PO 01/13/17 09:00 01/13/17 09:32 (CeleXA) 20 mg DAILY PO 01/13/17 09:00 01/13/17 09:32 (Proscar) 5 mg DAILY PO 01/13/17 09:00 01/13/17 09:31 (Florinef) 0.1 mg BID PO 01/12/17 21:00 01/13/17 09:31 (Percocet 5-325 Mg) 1 tab Q6H PRN PO 01/12/17 19:45 Patient Own Medication PT OWN MED: DROXID... TID PO 01/12/17 22:00 01/13/17 18:31 (Proamatine) 10 mg TID PO 01/12/17 22:00 01/13/17 18:31 Vital Signs / I&O Vital Signs Date Time Temp Pulse Resp B/P Pulse Ox O2 Delivery O2 Flow Rate FiO2 01/13/17 14:47 77 208/103 184/90 103/62 01/13/17 11:29 98.5 60 18 188/91 95 01/13/17 07:47 98.0 74 17 172/82 94 114/59 78/47 01/13/17 03:43 96.8 70 16 211/108 94 01/12/17 23:45 98.7 83 161/83 95 01/12/17 23:37 87 01/12/17 21:20 81 18 108/61 94 01/12/17 19:39 80 18 197/162 92 Room Air I/O 01/12/17 01/12/17 01/12/17 01/13/17 01/13/17 01/13/17 07:00 15:00 23:00 07:00 15:00 23:00 Output Total 350 ml 0 ml Balance -350 ml 0 ml Output Urine Total 350 ml 0 ml # Voids 0 6 Physical Exam GENERAL: In NAD, mild confusion SKIN: Warm and dry. HEAD: Normocephalic. EYES: No scleral icterus. No injection or drainage. NECK: Supple, trachea midline. No JVD or lymphadenopathy. CARDIOVASCULAR: Regular rate and rhythm without murmurs, gallops, or rubs. RESPIRATORY: Breath sounds equal bilaterally. No accessory muscle use. GASTROINTESTINAL: Abdomen soft, non-tender, nondistended. MUSCULOSKELETAL: No cyanosis, or edema. Laboratory Laboratory Tests Test 01/12/17 01/13/17 23:30 05:00 Total Creatine Kinase 179 U/L 75 U/L Troponin I LESS THAN 0.02 0.03 NG/ML NG/ML White Blood Count 10.7 TH/MM3 Red Blood Count 4.34 MIL/MM3 Hemoglobin 13.8 GM/DL Hematocrit 39.6 % Mean Corpuscular Volume 91.4 FL Mean Corpuscular Hemoglobin 31.9 PG Mean Corpuscular Hemoglobin 34.9 % Concent Red Cell Distribution Width 13.8 % Platelet Count 155 TH/MM3 Mean Platelet Volume 8.0 FL Neutrophils (%) (Auto) 79.4 % Lymphocytes (%) (Auto) 11.6 % Monocytes (%) (Auto) 8.6 % Eosinophils (%) (Auto) 0.0 % Basophils (%) (Auto) 0.4 % Neutrophils # (Auto) 8.5 TH/MM3 Lymphocytes # (Auto) 1.2 TH/MM3 Monocytes # (Auto) 0.9 TH/MM3 Eosinophils # (Auto) 0.0 TH/MM3 Basophils # (Auto) 0.0 TH/MM3 CBC Comment DIFF FINAL Differential Comment Sodium Level 144 MEQ/L Potassium Level 3.3 MEQ/L Chloride Level 103 MEQ/L Carbon Dioxide Level 35.0 MEQ/L Anion Gap 6 MEQ/L Blood Urea Nitrogen 17 MG/DL Creatinine 1.20 MG/DL Estimat Glomerular Filtration 58 ML/MIN Rate Random Glucose 128 MG/DL Calcium Level 9.1 MG/DL Magnesium Level 2.0 MG/DL Imaging Last Impressions Chest X-Ray 01/12/17 0577 Signed Impressions: Service Date/Time: Thursday, January 12, 2017 16:21 - CONCLUSION: 1. No acute cardiomegaly disease. Cristian Moctezuma MD Assessment and Plan Problem List: (1) Chest pain (2) Orthostatic hypotension (3) Syncope (4) CVA (cerebral vascular accident) (5) Hallucinations Assessment and Plan CP improved. BP stable. Continue Northera and Midodrine. New onset hallucinations. Increase activity. D/w pt's daughter. Phan Loomis MD Jan 13, 2017 18:53
[2017-01-13 21:31] VITALS: BP 208/97; PULSE 66; RESP 14; TEMP 98.8; O2SAT 90
--- NOTE | 2017-01-13 23:05 | EKG ---
Date Performed: 01/13/2017 Time Performed: 05:07:23 PTAGE: 81 years EKG: Sinus rhythm WITH SINUS ARRHYTHMIA NONSPECIFIC T-WAVE ABNORMALITY BORDERLINE ECG PREVIOUS TRACING : 01/12/2017 23.58 Compared to prior tracing no significant change DOCTOR: Phan Loomis Interpretating Date/Time 01/13/2017 23:03:51
--- NOTE | 2017-01-13 23:15 | EKG ---
Date Performed: 01/12/2017 Time Performed: 23:58:15 PTAGE: 81 years EKG: Sinus rhythm NONSPECIFIC T-WAVE ABNORMALITY ABNORMAL ECG PREVIOUS TRACING : 01/12/2017 16.25 Compared to prior tracing no significant change DOCTOR: Phan Loomis Interpretating Date/Time 01/13/2017 23:13:53
[2017-01-13 23:16] VITALS: BP_SYST 110; BP_SYST 197; BP_SYST 69; BP_DIAS 48; BP_DIAS 71; BP_DIAS 97; PULSE 68; RESP 14; TEMP 97.7; O2SAT 96
--- NOTE | 2017-01-13 23:34 | EKG ---
Date Performed: 01/12/2017 Time Performed: 16:25:08 PTAGE: 81 years EKG: Sinus rhythm NONSPECIFIC T-WAVE ABNORMALITY BORDERLINE ECG NO PREVIOUS TRACING DOCTOR: Phan Loomis Interpretating Date/Time 01/13/2017 23:32:43
--- NOTE | 2017-01-14 07:51 | HHI.DCPOC ---
Discharge Care Plan Diagnosis: (1) Syncope (2) Chest pain (3) Orthostatic hypotension Goals to Promote Your Health * To prevent worsening of your condition and complications * To maintain your health at the optimal level Directions to Meet Your Goals Take your medications as prescribed Follow your dietary instruction Follow activity as directed Keep your appointments as scheduled Take your immunizations and boosters as scheduled If your symptoms worsen call your PCP, if no PCP go to Urgent Care Center or Emergency Room Smoking is Dangerous to Your Health. Avoid second hand smoke Call the 24-hour hour crisis hotline for domestic abuse at Janell Vail PA-C Jan 14, 2017 7:51 am
[2017-01-14 08:24] VITALS: BP_SYST 104; BP_SYST 123; BP_DIAS 59; BP_DIAS 65; PULSE 67; RESP 18; TEMP 97.9; O2SAT 95
[2017-01-14 08:30] VITALS: PULSE 72
[2017-01-14] MEDS: DROXIDOPA 300 MG PO SCH ×3 (08:44→17:45)
[2017-01-14] MEDS: ASPIRIN EC 81 MG TABEC PO SCH (08:45)
[2017-01-14] MEDS: CETIRIZINE HCL 10 MG TAB PO SCH (08:45)
[2017-01-14] MEDS: MIDODRINE 5 MG TAB PO SCH ×3 (08:45→17:45)
[2017-01-14] MEDS: CITALOPRAM HYDROBROMIDE 20 MG TAB PO SCH (08:45)
[2017-01-14] MEDS: FINASTERIDE 5 MG TAB PO SCH (08:45)
[2017-01-14] MEDS: FLUDROCORTISONE ACETATE 0.1 MG TAB PO SCH (08:45)
[2017-01-14] MEDS: SODIUM CHLORIDE 0.9% FLUSH 10 ML FLUSH IV FLUSH SCH (08:46)
[2017-01-14 08:57] LABS: BICARBONATE 34.9 MEQ/L (21.0-32.0)
[2017-01-14 09:02] LABS: POTASSIUM 2.7 MEQ/L (3.5-5.1)
[2017-01-14] MEDS ORDERED: POTASSIUM CHLORIDE 20 MEQ CONTROLLED RELEASE TAB PO ONE (09:15)
[2017-01-14] MEDS: POTASSIUM CHLOR 20 MEQ PREMIX 100 ML IV SCH ×2 (09:49→12:44)
--- NOTE | 2017-01-14 11:41 | HHI.PR ---
Subjective Remarks Follow up for chest pain. The patient reports no further episodes of chest pain. He denies any other medical complaints including no palpitations, shortness of breath, or abdominal complaints. Last night the patient and his daughter reported hallucinations which is unusual for him. The daughter did not feel comfortable taking the patient home at that time. The patient now has not experienced any further hallucinations overnight. Objective Vitals Vital Signs Date Time Temp Pulse Resp B/P Pulse Ox O2 Delivery O2 Flow Rate FiO2 01/14/17 08:24 97.9 67 18 123/65 95 104/59 01/13/17 23:16 97.7 68 14 197/97 96 110/71 69/48 01/13/17 21:31 98.8 66 14 208/97 90 01/13/17 14:47 77 208/103 184/90 103/62 I/O 01/13/17 01/13/17 01/13/17 01/14/17 01/14/17 01/14/17 07:00 15:00 23:00 07:00 15:00 23:00 Output Total 0 ml 900 ml Balance 0 ml -900 ml Output Urine Total 0 ml 900 ml # Voids 6 6 # Bowel Movements 1 Result Diagram: 01/13/17 0500 01/14/17 0555 Imaging Last Impressions Chest X-Ray 01/12/17 1617 Signed Impressions: Service Date/Time: Thursday, January 12, 2017 16:21 - CONCLUSION: 1. No acute cardiomegaly disease. Cristian Moctezuma MD Objective Remarks GENERAL: Well-nourished, well-developed elderly male patient in [facility]. SKIN: Warm and dry. No rash. HEENT: Normocephalic. Atraumatic.Pupils equal and round. Mucous membranes pink and moist. NECK: Supple. Trachea midline. CARDIOVASCULAR: Regular rate and rhythm. S1, S2 noted. No murmur appreciated. RESPIRATORY: No accessory muscle use. Clear to auscultation. Breath sounds equal bilaterally. GASTROINTESTINAL: Abdomen soft, non-tender, nondistended. Normoactive bowel sounds x4. MUSCULOSKELETAL: No obvious deformities. Extremities without clubbing, cyanosis , or edema. NEUROLOGICAL: Awake and alert. No obvious cranial nerve deficits. Motor grossly within normal limits. Normal speech. PSYCHIATRIC: Appropriate mood and affect; insight and judgment limited. Medications and IVs Current Medications Medications (Trade) Dose Ordered Sig/Corazon Route Start Time Stop Time Status Last Admin (NS Flush) 2 ml UNSCH PRN IV FLUSH 01/12/17 19:45 (NS Flush) 2 ml BID IV FLUSH 01/12/17 21:00 01/14/17 08:46 (Narcan Inj) 0.4 mg UNSCH PRN IV 01/12/17 19:45 (Ecotrin Ec) 81 mg DAILY PO 01/13/17 09:00 01/14/17 08:45 (ZyrTEC) 10 mg DAILY PO 01/13/17 09:00 01/14/17 08:45 (CeleXA) 20 mg DAILY PO 01/13/17 09:00 01/14/17 08:45 (Proscar) 5 mg DAILY PO 01/13/17 09:00 01/14/17 08:45 (Florinef) 0.1 mg BID PO 01/12/17 21:00 01/14/17 08:45 (Percocet 5-325 Mg) 1 tab Q6H PRN PO 01/12/17 19:45 Patient Own Medication PT OWN MED: DROXID... 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 Loomis - ACS ruled out with negative serial cardiac enzymes and EKGs without acute ischemic changes - continuous cardiac telemetry to observe for arrhythmia, no acute events - no further episodes of chest pain - cleared for d/c by cardiology, discussed with Dr. Loomis, outpatient f/up in 2 weeks History of orthostatic hypotension - patient persistently orthostatic, consistent with previous - continue patient's fludrocortisone and midodrine - apply reinaldo hose - spiritual counselor on slow transitions from lying to sitting to standing - monitor orthostatics Severe Hypokalemia: K 2.7, mag 2.0. - give po and IV KCl replacement - repeat serum K this afternoon Hallucinations: report 01/13 at 6pm. Suspect component of sundowners. - no further episodes of hallucinations - monitor All other medical conditions stable including afib, bladder/prostate cancer, and hx of CVA; continue home medications as appropriate. DVT prophylaxis - teds/SCDs Discharge Planning Can likely discharge later today if potassium level wnl. 1700hrs: Patient's potassium 3.5. He has been cleared by candy spreader Dr. Loomis. Orthostatics improving. Discussed with the patient's daughter at bedside who is concerned about him going home without eating. According to RN, the patient stated he wasn't hungry for breakfast then only ate small portion of lunch. The patient woke up and says he is hungry, will plan for discharge tonight if patient eats. Gave daughter the option of keeping him to look into rehab placement. The daughter then asked the patient if he wanted to go to rehab , he says "I ain't going to no rehab, I'm going home". Daughter agrees with taking him home if he eats. Explained patient will likely do better back in his normal routine with meals that he prefers, daughter agrees. Patient wants to go home. Discharge patient to home Condition on discharge: Improved Regular Diet as tolerated Ad Emely activity Rx written: no new medications Follow-up with primary care physician Dr. Coronado in [address] Loomis in 1-2 weeks Problem Qualifiers (1) Chest pain: Qualified Code: R07.9 - Chest pain, unspecified type Janell Vail PA-C Jan 14, 2017 11:40 am
[2017-01-14 12:23] VITALS: BP 189/106; PULSE 72; RESP 21; TEMP 97.8; O2SAT 95
[2017-01-14 17:14] VITALS: BP_SYST 109; BP_SYST 110; BP_SYST 210; BP_DIAS 51; BP_DIAS 64; BP_DIAS 95
--- NOTE | 2017-01-14 18:42 | PD.CARD.PN ---
Subjective Subjective Remarks No CP or SOB, somnolent, hallucinations improved Objective Medications Current Medications Medications (Trade) Dose Ordered Sig/Corazon Route Start Time Stop Time Status Last Admin (NS Flush) 2 ml UNSCH PRN IV FLUSH 01/12/17 19:45 (NS Flush) 2 ml BID IV FLUSH 01/12/17 21:00 01/14/17 08:46 (Narcan Inj) 0.4 mg UNSCH PRN IV 01/12/17 19:45 (Ecotrin Ec) 81 mg DAILY PO 01/13/17 09:00 01/14/17 08:45 (ZyrTEC) 10 mg DAILY PO 01/13/17 09:00 01/14/17 08:45 (CeleXA) 20 mg DAILY PO 01/13/17 09:00 01/14/17 08:45 (Proscar) 5 mg DAILY PO 01/13/17 09:00 01/14/17 08:45 (Florinef) 0.1 mg BID PO 01/12/17 21:00 01/14/17 08:45 (Percocet 5-325 Mg) 1 tab Q6H PRN PO 01/12/17 19:45 Patient Own Medication PT OWN MED: DROXID... TID PO 01/12/17 22:00 01/14/17 17:45 (Proamatine) 10 mg TID PO 01/12/17 22:00 01/14/17 17:45 Vital Signs / I&O Vital Signs Date Time Temp Pulse Resp B/P Pulse Ox O2 Delivery O2 Flow Rate FiO2 01/14/17 17:14 210/95 109/64 110/51 01/14/17 12:23 97.8 72 21 189/106 95 01/14/17 08:30 72 01/14/17 08:24 97.9 67 18 123/65 95 104/59 01/13/17 23:16 97.7 68 14 197/97 96 110/71 69/48 01/13/17 21:31 98.8 66 14 208/97 90 I/O 01/13/17 01/13/17 01/13/17 01/14/17 01/14/17 01/14/17 07:00 15:00 23:00 07:00 15:00 23:00 Intake Total 1120 ml Output Total 0 ml 900 ml Balance 0 ml -900 ml 1120 ml Intake Oral 720 ml IV Total 400 ml Output Urine Total 0 ml 900 ml # Voids 6 6 2 # Bowel Movements 1 Physical Exam GENERAL: In NAD, somnolent SKIN: Warm and dry. HEAD: Normocephalic. EYES: No scleral icterus. No injection or drainage. NECK: Supple, trachea midline. No JVD or lymphadenopathy. CARDIOVASCULAR: Regular rate and rhythm without murmurs, gallops, or rubs. RESPIRATORY: Breath sounds equal bilaterally. No accessory muscle use. GASTROINTESTINAL: Abdomen soft, non-tender, nondistended. MUSCULOSKELETAL: No cyanosis, or edema. Laboratory Laboratory Tests Test 01/14/17 01/14/17 05:55 16:18 Sodium Level 142 MEQ/L Potassium Level 2.7 MEQ/L 3.5 MEQ/L Chloride Level 101 MEQ/L Carbon Dioxide Level 34.9 MEQ/L Anion Gap 6 MEQ/L Blood Urea Nitrogen 19 MG/DL Creatinine 0.99 MG/DL Estimat Glomerular Filtration 72 ML/MIN Rate Random Glucose 85 MG/DL Calcium Level 9.0 MG/DL Imaging Last Impressions Chest X-Ray 01/12/17 1617 Signed Impressions: Service Date/Time: Thursday, January 12, 2017 16:21 - CONCLUSION: 1. No acute cardiomegaly disease. Cristian Moctezuma MD Assessment and Plan Problem List: (1) Chest pain (2) Orthostatic hypotension (3) Syncope (4) CVA (cerebral vascular accident) (5) Hallucinations Assessment and Plan CP improved. BP stable. Continue Northera and Midodrine. Increase activity. Will schedule f/u as outpatient. Phan Loomis MD Jan 14, 2017 18:42
== END 2017-01-14 19:31 | disposition home or self-care (01) ==
LOC: NEPE 15:56 → NEDA 19:07 → NEPGCP 23:08
PROVIDERS: ADMIT Hospitalist; ATTEND Hospitalist
DX: R07.89 Other chest pain (principal); I95.1 Orthostatic hypotension; E87.6 Hypokalemia; R44.3 Hallucinations, unspecified; I48.91 Unspecified atrial fibrillation; Z86.73 Personal history of transient ischemic attack (TIA), and cerebral infarction without residual deficits; Z85.51 Personal history of malignant neoplasm of bladder
CPT/HCPCS: 71010; 80048; 82550; 83690; 83735; 84132; 84484; 85025; 85610; 85730; 93005; 99285; G0378; J3480; J7040